=== PATIENT | male | born 1945 | race Caucasian/White ===

== ENCOUNTER 2016-04-28 07:22 | Day surgery (SDC) | payer MEDICARE ==
[2016-04-22 16:11] VITALS: BMI 30.2
[~2016-04-28 07:22] MED LIST: ALPRAZolam 0.25 MG TAB PO PRN; ASPIRIN 325 MG TAB PO STA; SODIUM CHLORIDE 0.9% 1,000 ML IV SCH; SODIUM CHLORIDE 0.9% 1,000 ML in EMPTY BAG 1 BAG IV ONE
[2016-04-28 08:13] LABS: Glucose,Whole Blood 148 mg/dL (75-99)
[2016-04-28 08:42] VITALS: RESP 16; TEMP 98
[2016-04-28] MEDS ORDERED: MIDAZOLAM 2 MG/2 ML VIAL IVP ONE (11:18)
[2016-04-28] MEDS ORDERED: LIDOCAINE 2% INJ 20 MG/ML SQ ONE (11:19)
[2016-04-28] MEDS: VERAPAMIL SYRINGE (5 MG/10 ML) INTRAARTER ONE ×2 (11:20→11:32)
[2016-04-28] MEDS ORDERED: HEPARIN SODIUM 1,000 UNIT/ML VIAL IV ONE (11:22)
[2016-04-28] MEDS ORDERED: IODIXANOL 320 MG/ML 100 ML INTRAARTER ONE (11:32)
[2016-04-28] MEDS ORDERED: SODIUM CHLORIDE 0.9% 1,000 ML IV SCH (11:45)
--- NOTE | 2016-04-28 12:34 | PCN ---
DATE OF PROCEDURE: 04/28/2016 PERIPHERAL ANGIOGRAM PERFORMING PHYSICIAN: Horacio Porter MD, motorized squad commanding officer. PROCEDURE PERFORMED: 1. Abdominal aortogram. 2. Bilateral lower extremity runoff. INDICATION: This is a pleasant 70-year-old gentleman who sees Dr. Hernan Alan as an outpatient and sees Dr. Guardado as an outpatient who was experiencing bilateral lower extremity discomfort consistent with claudication. He underwent an arterial duplex study in the office and showed severe bilateral SFA disease. He was admitted today to undergo an abdominal aortogram and bilateral lower extremity runoff. APPROACH: Right radial artery. COMPLICATIONS: None. LEVEL OF SEDATION: Moderate. PROCEDURE DESCRIPTION: After obtaining an informed consent, the patient was brought to the cardiac crime laboratory analyst. Right radial artery was cannulated using micropuncture technique. Micropuncture wire passed easily. Then I placed 5-[place] sheath in the right radial artery. Subsequently, I gave the patient 2 mg of verapamil IA and 3000 units of heparin IV. Subsequently, I did an abdominal aortogram and bilateral lower extremity runoff using a 5-[place] pigtail catheter which was initially placed at the level of the renal arteries then it was advanced into above the bifurcation of the aorta to right and left common iliac arteries. The procedure was completed without any complication. ( ) ANGIOGRAM 1. The abdominal aorta appeared to have mild disease only. 2. COMMON ILIAC ARTERIES: The right common iliac artery appeared to have mild disease only and the left common iliac artery appeared to be angiographically normal. 3. INTERNAL ILIAC ARTERIES: The right and left internal iliac arteries are angiographically normal. 4. EXTERNAL ILIAC ARTERIES: The right and left external iliac arteries appear to have mild disease only. 5. PROFUNDA: The right and left profunda are angiographically normal. 6. SFA: The right SFA is diffusely diseased up to about 70% to 80% in the midportion. The left SFA has the same disease also diffuse disease up to about 70% to 80% in the midportion. 7. POPLITEAL: The right and left popliteal appeared to have mild disease only. 8. BELOW THE KNEE: There is 2-vessel runoff below the knee on the right side with posterior tibia and peroneal and one-vessel runoff below the knee on the left side with posterior tibial only. CONCLUSION: 1. Mild aortoiliac disease. 2. Severe bilateral superficial femoral artery disease. 3. Two-vessel runoff below the knee on the right side and one vessel runoff below the knee on the left side. POSTPROCEDURE MANAGEMENT: The patient will be scheduled to undergo a SEXUAL ASSAULT SOCIAL WORKER of the right and left SFA.
--- NOTE | 2016-04-28 12:41 | IR ---
EXAMINATION TYPE: IR angio abdominal w runoff DATE OF EXAM: 04/28/2016 11:45 AM HISTORY: Peripheral vascular disease Fluoroscopy support supplied to the referring clinician. See dictated report from cardiology, 1.6 mi nutadalberto fluoroscopy time, 71 intraoperative C-arm images
[2016-04-28 16:49] VITALS: BP 136/72; PULSE 60
== END 2016-04-28 17:20 | disposition home or self-care (01) ==
LOC: CATHCVL 07:22
PROVIDERS: ATTEND Internal Medicine Interventional Cardiology
DX: I70.213 Atherosclerosis of native arteries of extremities with intermittent claudication, bilateral legs (principal); I25.10 Atherosclerotic heart disease of native coronary artery without angina pectoris; E11.9 Type 2 diabetes mellitus without complications; I10 Essential (primary) hypertension; E78.2 Mixed hyperlipidemia; Z82.49 Family history of ischemic heart disease and other diseases of the circulatory system; Z79.84 Long term (current) use of oral hypoglycemic drugs; Z79.02 Long term (current) use of antithrombotics/antiplatelets; Z79.4 Long term (current) use of insulin; Z79.899 Other long term (current) drug therapy; Z88.8 Allergy status to other drugs, medicaments and biological substances; Z86.73 Personal history of transient ischemic attack (TIA), and cerebral infarction without residual deficits; Z95.5 Presence of coronary angioplasty implant and graft; Z82.3 Family history of stroke; Z87.891 Personal history of nicotine dependence
CPT/HCPCS: 36200; 75625; 75716; C1769 ×2; C1894; J2001; J2250; Q9967; J1644

== ENCOUNTER 2016-06-09 09:28 | Day surgery (SDC) | payer MEDICARE ==
[2016-06-07 11:38] VITALS: BMI 30.7
[~2016-06-09 09:28] MED LIST changes: -SODIUM CHLORIDE 0.9% 1,000 ML IV SCH
[2016-06-09] MEDS ORDERED: SODIUM CHLORIDE 0.9% 1,000 ML IV ONE (10:00)
[2016-06-09 10:03] LABS: Glucose,Whole Blood 140 mg/dL (75-99)
[2016-06-09 10:08] LABS: Basophils % (A) 0 %; CH 30.2; CHCM 34.2; Eosinophils # (A) 0.2 k/uL (0-0.7); Eosinophils % (A) 3 %; HCT 33.2 % (39.0-53.0); HDW 2.86; HGB 11.1 gm/dL (13.0-17.5); Luc # (Auto) 0.17; Luc % (Auto) 3; Lymphocytes # (A) 1.2 k/uL (1.0-4.8); Lymphocytes % (A) 20 %; MCH 29.7 pg (25.0-35.0); MCHC 33.5 g/dL (31.0-37.0); MCV 88.6 fL (80.0-100.0); Mean Platelet Volume 7.2; Monocytes # (A) 0.5 k/uL (0-1.0); Monocytes % (A) 9 %; Neutrophils # (A) 3.8 k/uL (1.3-7.7); Neutrophils % (A) 65 %; RBC 3.75 m/uL (4.30-5.90); RDW 12.7 % (11.5-15.5); WBC 5.8 k/uL (3.8-10.6); WBC (Perox) 5.95
[2016-06-09 10:21] LABS: Anion Gap 13 mmol/L; Blood Urea Nitrogen 29 mg/dL (9-20); Calcium 8.7 mg/dL (8.4-10.2); Carbon Dioxide 22 mmol/L (22-30); Chloride 108 mmol/L (98-107); Glucose 147 mg/dL (74-99); Non-African American GFR(MDRD) 52 (>60 ml/min/1.73 sqM); Potassium 4.7 mmol/L (3.5-5.1); Sodium 143 mmol/L (137-145)
[2016-06-09] MEDS ORDERED: LIDOCAINE 2% INJ 20 MG/ML SQ ONE (10:28)
[2016-06-09] MEDS ORDERED: MIDAZOLAM 2 MG/2 ML VIAL IV ONE (10:28)
[2016-06-09] MEDS ORDERED: HEPARIN SODIUM 1,000 UNIT/ML VIAL IV ONE ×2 (10:35→11:25)
[2016-06-09] MEDS: NITROGLYCERIN 1000MCG/10ML SYRINGE INTRAARTER ONE ×4 (11:02→12:34)
[2016-06-09] MEDS: niCARdipine Syringe (1,000 mcg/10 mL) INTRACORON ONE ×3 (11:18→12:36)
[2016-06-09] MEDS: MIDAZOLAM 2 MG/2 ML VIAL IV ONE ×2 (11:31→11:46)
[2016-06-09] MEDS ORDERED: CLOPIDOGREL 75 MG TAB PO ONE (12:45)
[2016-06-09] MEDS ORDERED: MECLIZINE 12.5 MG TAB PO PRN (12:48)
[2016-06-09] MEDS ORDERED: HYDROcodone/APAP 5-325MG 1 EACH TAB PO PRN (12:48)
[2016-06-09] MEDS ORDERED: SODIUM CHLORIDE 0.9% 1,000 ML IV SCH (13:00)
[2016-06-09] MEDS: hydrALAZINE HCL 50 MG TAB PO SCH ×2 (14:27→21:30)
[2016-06-09] MEDS ORDERED: ENALAPRILAT 1.25 MG/ML 1 ML VIAL ONE (15:24)
[2016-06-09] MEDS ORDERED: hydrALAZINE HCL 20 MG/ML 1 ML VIAL ONE (15:24)
[2016-06-09] MEDS ORDERED: hydrALAZINE HCL 20 MG/ML 1 ML VIAL IVP PRN (15:27)
[2016-06-09] MEDS ORDERED: ENALAPRILAT 1.25 MG/ML 1 ML VIAL IVP PRN (15:27)
[2016-06-09] MEDS ORDERED: ATORVASTATIN 10 MG TAB PO SCH (19:00)
[2016-06-09] MEDS: CARVEDILOL 12.5 MG TAB PO SCH (20:13)
[2016-06-09] MEDS: CHOLECALCIFEROL 1,000 UNIT TAB PO SCH (20:13)
[2016-06-09] MEDS: amLODIPine 5 MG TAB PO SCH (20:13)
[2016-06-09] MEDS ORDERED: PANTOPRAZOLE 40 MG TABLET PO SCH (21:00)
--- NOTE | 2016-06-09 23:51 | PTCA ---
DATE OF SERVICE: 06/09/2016 PERFORMING PHYSICIAN: Horacio Porter M.D., weight tester. PROCEDURES PERFORMED: 1. Selective right superficial femoral artery angiogram. 2. Selective right [id number] angiogram. 3. Successful stenting of the distal right superficial femoral artery using a 6.0 x 80 mm Supera self-expandable stent with good angiographic results. 4. Successful stenting of the proximal right superficial femoral artery using a 7.0 x 120 mm silver PTX with good angiographic results. 5. Successful stenting of the mid right superficial femoral artery using successful balloon angioplasty of the mid right SFA using a 6.0 x 120 mm In.Pact drug-coated balloon with good angiographic results. 6. Selective left common femoral artery angiogram. 7. Atherectomy of the right SFA using the CXI device. INDICATION: This is a pleasant 71-year-old gentleman who sees Dr. Guardado and Dr. Hernan Alan as an outpatient who was experiencing bilateral lower extremity discomfort consistent with claudication. The patient underwent a peripheral angiogram a few weeks ago, and that showed severe bilateral SFA disease. He was brought today to undergo an intervention on the right SFA. APPROACH: Left common femoral artery. COMPLICATIONS: None. LEVEL OF SEDATION: Moderate. PROCEDURE DESCRIPTION: After obtaining informed consent, the patient was brought to the cardiac lab engineer. The left common femoral artery was cannulated using micropuncture technique. The micropuncture wire passed easily. Then I placed a 6 Afghan sheath in the left common femoral artery. Subsequently anticoagulation was initiated using heparin. The patient was given 10,000 units of heparin initially. Then an additional 3000 units of heparin was given with continuous ACT measurements during the procedure. After that I selected the right SFA using a 5 Afghan RIM catheter with an 0.035 Advantage wire. Subsequently I exchanged my 11cm 6 Afghan sheath for a 70 cm 6 Afghan sheath using the Advantage wire. After that I did selective right SFA and selective right [id number]-qwdg angiogram. After that I did an atherectomy of the right SFA using the CXI device. I did multiple runs of atherectomy under low, medium and high speed. Subsequently I did balloon angioplasty using a 5.0 mm balloon. The following angiogram showed dissection which was flow-limiting, so I decided to stent that segment, which is the distal right SFA. I did deploy a 6.0 x 80 mm Supera self-expandable stent, where the stent was positioned under fluoroscopy guidance, then it was deployed. For the area in the proximal right SFA, I did balloon angioplasty using a 5.0 mm balloon, but the following angiogram showed another dissection as well. So I decided to stent that segment, where I deployed a 7.0 x 120 mm Zilver PTX drug-coated stent which was positioned under fluoroscopy guidance, then it was deployed. For the area in the middle, I did balloon angioplasty initially using a 6.0 x 120 mm drug-coated balloon, where the balloon was left inflated for 3 minutes under 10 atmospheres. The following angiogram showed reasonable angiographic results. The following angiogram showed good angiographic results. Subsequently I exchanged my 70 cm sheath for an 11 cm sheath using the Advantage wire. The procedure was completed without any complication. Post-procedure management will be: 1. Dual antiplatelet therapy. 2. Risk factor modifications. 3. Surveillance of the mid right SFA and stenting of the mid right SFA if the Doppler shows severe disease.
--- NOTE | 2016-06-10 05:38 | LTR ---
June 09, 2016 LYNN ALCOCER MD RE: Og Martines Cori Dear Lynn: Mr. Og Martines underwent successful balloon angioplasty and stenting of the right femoral artery with a good angiographic result and without any complication. As you remember, he is a pleasant 71-year-old gentleman who was experiencing right leg discomfort consistent with claudication. Thank you for allowing me to participate in his care. Sincerely, KENNEDY LANDA MD
[2016-06-10 06:09] VITALS: PULSE 72
[2016-06-10] MEDS: CARVEDILOL 12.5 MG TAB PO SCH (06:53)
[2016-06-10 07:08] LABS: Basophils % (A) 0 %; CH 29.8; CHCM 33.4; Eosinophils # (A) 0.2 k/uL (0-0.7); Eosinophils % (A) 2 %; HCT 33.1 % (39.0-53.0); HDW 2.83; HGB 10.9 gm/dL (13.0-17.5); Luc # (Auto) 0.16; Luc % (Auto) 2; Lymphocytes % (A) 15 %; MCH 29.6 pg (25.0-35.0); MCV 89.6 fL (80.0-100.0); Mean Platelet Volume 7.4; Monocytes # (A) 0.5 k/uL (0-1.0); Monocytes % (A) 8 %; Neutrophils # (A) 4.7 k/uL (1.3-7.7); Neutrophils % (A) 72 %; RBC 3.69 m/uL (4.30-5.90); RDW 12.6 % (11.5-15.5); WBC 6.5 k/uL (3.8-10.6); WBC (Perox) 7.04
[2016-06-10 07:30] LABS: Anion Gap 11 mmol/L; Blood Urea Nitrogen 19 mg/dL (9-20); Calcium 8.6 mg/dL (8.4-10.2); Carbon Dioxide 23 mmol/L (22-30); Chloride 110 mmol/L (98-107); Glucose 133 mg/dL (74-99); Non-African American GFR(MDRD) 53 (>60 ml/min/1.73 sqM); Potassium 4.6 mmol/L (3.5-5.1); Sodium 144 mmol/L (137-145)
[2016-06-10] MEDS ORDERED: glipiZIDE 10 MG TAB PO SCH (07:30)
[2016-06-10] MEDS: amLODIPine 5 MG TAB PO SCH (07:39)
[2016-06-10] MEDS: CHOLECALCIFEROL 1,000 UNIT TAB PO SCH (07:39)
[2016-06-10] MEDS: hydrALAZINE HCL 50 MG TAB PO SCH (07:39)
[2016-06-10 07:45] VITALS: BP 143/66; RESP 16; TEMP 96.8
[2016-06-10] MEDS ORDERED: SERTRALINE 100 MG TAB PO SCH (09:00)
[2016-06-10] MEDS ORDERED: ISOSORBIDE MONONITRATE ER 30 MG TAB.ER.24H PO SCH (09:00)
[2016-06-10] MEDS ORDERED: LINAGLIPTIN 5 MG TABLET PO SCH (09:00)
[2016-06-10] MEDS ORDERED: ASPIRIN 325 MG TAB PO SCH (09:00)
[2016-06-10] MEDS ORDERED: CLOPIDOGREL 75 MG TAB PO SCH (09:00)
--- NOTE | 2016-06-10 09:42 | IR ---
Fluoroscopy HISTORY: Pain 7.7 minutes fluoroscopy time supplied to the referring clinician. 965 intraoperative C-arm images d ocument the procedure. See dictated report from cardiology.
--- NOTE | 2016-06-11 08:10 | DS ---
DATE OF ADMISSION: 06/09/2016 DATE OF DISCHARGE: 06/10/2016 BRIEF HISTORY: This is a pleasant 71-year-old gentleman who was admitted to the hospital yesterday and underwent successful balloon angioplasty and stenting of the right SFA with a good angiographic result and without any complication. The procedure was performed from the left groin, which is soft and nontender and without any bruises. The patient is going to be discharged home on dual antiplatelet therapy and I will follow up with him in the office next week.
== END 2016-06-10 09:55 | disposition home or self-care (01) ==
LOC: CATHCVL 09:28 → 6SEL 12:40 → CATHCVL 06-10 09:55
PROVIDERS: ATTEND Internal Medicine Interventional Cardiology
DX: I70.211 Atherosclerosis of native arteries of extremities with intermittent claudication, right leg (principal); I10 Essential (primary) hypertension; E78.2 Mixed hyperlipidemia; Z86.73 Personal history of transient ischemic attack (TIA), and cerebral infarction without residual deficits; Z82.49 Family history of ischemic heart disease and other diseases of the circulatory system; Z98.62 Peripheral vascular angioplasty status; Z87.891 Personal history of nicotine dependence; E11.9 Type 2 diabetes mellitus without complications; Z79.4 Long term (current) use of insulin; Z79.84 Long term (current) use of oral hypoglycemic drugs; Z79.02 Long term (current) use of antithrombotics/antiplatelets; Z79.82 Long term (current) use of aspirin; Z79.899 Other long term (current) drug therapy; Z88.8 Allergy status to other drugs, medicaments and biological substances
CPT/HCPCS: 37227; 85347; 80048 ×2; 85025 ×2; 99152; 99153 ×8; C1894 ×2; C1714; C1769 ×6; C1725 ×2; C2623 ×2; C1876; C1874; J2001; J2250; J0360; J1644

== ENCOUNTER 2016-08-11 09:56 | Day surgery (SDC) | payer MEDICARE ==
[2016-08-09 14:44] VITALS: BMI 30.7
[2016-08-11 10:19] VITALS: RESP 18
[2016-08-11 10:21] LABS: Glucose,Whole Blood 126 mg/dL (75-99)
[2016-08-11 10:40] LABS: Basophils % (A) 1 %; CH 29.5; Eosinophils # (A) 0.2 k/uL (0-0.7); Eosinophils % (A) 3 %; HCT 34.8 % (39.0-53.0); HDW 2.75; HGB 11.5 gm/dL (13.0-17.5); Luc # (Auto) 0.15; Luc % (Auto) 2; Lymphocytes # (A) 1.1 k/uL (1.0-4.8); Lymphocytes % (A) 15 %; MCH 28.9 pg (25.0-35.0); MCHC 33.1 g/dL (31.0-37.0); MCV 87.1 fL (80.0-100.0); Mean Platelet Volume 7.4; Monocytes # (A) 0.6 k/uL (0-1.0); Monocytes % (A) 8 %; Neutrophils # (A) 5.1 k/uL (1.3-7.7); Neutrophils % (A) 71 %; WBC 7.1 k/uL (3.8-10.6); WBC (Perox) 7.01
[2016-08-11 10:53] LABS: Anion Gap 11 mmol/L; Blood Urea Nitrogen 24 mg/dL (9-20); Calcium 8.9 mg/dL (8.4-10.2); Carbon Dioxide 25 mmol/L (22-30); Chloride 105 mmol/L (98-107); Glucose 134 mg/dL (74-99); Non-African American GFR(MDRD) 54 (>60 ml/min/1.73 sqM); Potassium 4.2 mmol/L (3.5-5.1); Sodium 141 mmol/L (137-145)
[2016-08-11] MEDS ORDERED: MIDAZOLAM 2 MG/2 ML VIAL IVP ONE (12:05)
[2016-08-11] MEDS ORDERED: LIDOCAINE 2% INJ 20 MG/ML SQ ONE (12:09)
[2016-08-11] MEDS ORDERED: HEPARIN SODIUM 1,000 UNIT/ML VIAL IV ONE ×2 (12:14→13:29)
[2016-08-11] MEDS ORDERED: MIDAZOLAM 2 MG/2 ML VIAL IV ONE (13:12)
[2016-08-11] MEDS ORDERED: NITROGLYCERIN 1000MCG/10ML SYRINGE INTRAARTER ONE (14:08)
[2016-08-11] MEDS ORDERED: niCARdipine Syringe (1,000 mcg/10 mL) INTRACORON ONE (14:08)
[2016-08-11] MEDS ORDERED: MECLIZINE 25 MG TAB PO PRN (14:27)
[2016-08-11] MEDS ORDERED: SODIUM CHLORIDE 0.9% 1,000 ML IV SCH (14:30)
[2016-08-11] MEDS ORDERED: IODIXANOL 320 MG/ML 100 ML INTRAARTER ONE (14:33)
--- NOTE | 2016-08-11 20:07 | PCN ---
DATE OF PROCEDURE: 08/11/2016 PERFORMING PHYSICIAN: Horacio Porter M.D., ship washer. PROCEDURES PERFORMED: 1. Selective left [id number] angiogram. 2. Selective left superficial femoral artery SFA angiogram. 3. Atherectomy of the left superficial femoral artery using the TurboHawk device with extraction of significant amount of plaque. 4. Successful stenting of the left superficial femoral artery using 6.0 x 40 mm Zilver PTX drug-coated stent, with good angiographic results. 5. Intravascular ultrasound (IVUS) of the left SFA. 6. Selective right common femoral artery angiogram. INDICATION: This is a pleasant 71-year-old gentleman who sees Dr. Hernan Alan as well as Dr. Guardado as an outpatient. He was experiencing bilateral lower extremity discomfort consistent with intermittent claudication. He underwent a peripheral angiogram that showed severe bilateral SFA disease. He underwent successful atherectomy and stenting of the right SFA and he was brought today to undergo an atherectomy of the left SFA. APPROACH: Right common femoral artery. COMPLICATIONS: None. LEVEL OF SEDATION: Moderate with a sedation length of about 2 hours. PROCEDURE DESCRIPTION: After obtaining informed consent, the patient was brought to the cardiac labor utilization superintendent. The right common femoral artery was cannulated using micropuncture technique. The micropuncture wire passed easily. Then I placed a 6 [place]i sheath in the right common femoral artery. Anticoagulation was initiated using heparin; the patient was given 10,000 units of heparin IV. Subsequently I did select the left SFA using an 0.035 Advantage wire with support of RIM catheter. Subsequently I exchanged my 11 cm 6 Yemeni sheath for a 55 cm 6 Yemeni sheath using the Advantage wire. The tip of the long sheath was positioned in the proximal left SFA. After that I exchanged my 0.035 Advantage wire for a filter wire using an 0.035 CXI catheter. The filter was positioned in the left popliteal. Subsequently I did atherectomy of the left SFA using the TurboHawk device, and I was able to extract a significant amount of plaque from the left SFA. After that, I did stenting of the left SFA using a 6.0 x 40 mm Zilver PTX drug-coated stent, where the stent was positioned under fluoroscopy guidance and deployed. The following angiogram showed good angiographic results in the stented area, but distal to the stent in the very distal part of the SFA just before the Ismael canal, there was some flow outside the artery. Possible dissection was suspected. I did intravascular ultrasound of that area and it showed what seemed to be dissection involving the distal SFA just distal to the stent I deployed. At that point I decided to go ahead and stent that segment. I tried to advance a self-expandable stent over the filter wire, but the stent would not go through the previous stent. At that point I exchanged it for an 0.018 wire, and the stent again did not pass through the previous stent. I exchanged this for an 0.035 Advantage, 0.035 Glidewire and 0.035 Amplatzer wire, and with all of that I was unable to deliver the stent to the distal left SFA through the previous stent. At that point I did balloon angioplasty of the previous stent using initially 5.0 and then 6.0 balloon and tried to open that stent a little better so I could pass the second stent across it, but I was unable to do so in spite of that. At that point I decided to stop. I did an angiogram which showed good angiographic results. After that, I exchanged my 55 cm 6 Yemeni sheath for an 11 cm 6 Yemeni sheath using the Advantage wire. Finally I did selective right common femoral artery angiogram. The procedure was completed without any complication. POST-PROCEDURE MANAGEMENT: 1. Dual antiplatelet therapy. 2. Risk factor modifications. 3. Followup with the patient. The patient has a lesion in the proximal left SFA. I would watch him clinically and by Doppler; and if he is symptomatic, I would consider doing a SIGHTER of that segment.
--- NOTE | 2016-08-11 20:15 | LTR ---
August 11, 2016 RE: Og Martines Dear Veronica, Mr. Og Martines underwent successful atherectomy and balloon angioplasty of the left femoral artery with good angiographic results and without any complication. Please do not hesitate to call if you have any question or concern. Sincerely, KENNEDY LANDA MD
[2016-08-11] MEDS ORDERED: ATORVASTATIN 40 MG TAB PO SCH (21:00)
[2016-08-11] MEDS ORDERED: PANTOPRAZOLE 40 MG TABLET PO SCH (21:00)
[2016-08-11] MEDS ORDERED: ASPIRIN 325 MG TAB PO SCH (21:00)
[2016-08-11] MEDS: hydrALAZINE HCL 50 MG TAB PO SCH ×2 (21:23→21:25)
[2016-08-11] MEDS: glipiZIDE 10 MG TAB PO SCH ×2 (21:23→21:25)
[2016-08-11] MEDS: amLODIPine 5 MG TAB PO SCH (21:23)
[2016-08-11] MEDS: CARVEDILOL 12.5 MG TAB PO SCH (21:23)
[2016-08-11 21:40] LABS: Glucose,Whole Blood 161 mg/dL (75-99)
[2016-08-11] MEDS ORDERED: INSULIN GLARGINE 100 UNIT/ML 10 ML VIAL SQ SCH (22:30)
[2016-08-12 06:27] LABS: Glucose,Whole Blood 91 mg/dL (75-99)
[2016-08-12 06:32] LABS: Non-African American GFR(MDRD) 55 (>60 ml/min/1.73 sqM)
[2016-08-12] MEDS: CARVEDILOL 12.5 MG TAB PO SCH (06:44)
[2016-08-12 07:10] LABS: Basophils # (A) 0.1 k/uL (0-0.2); Basophils % (A) 1 %; CH 29.3; CHCM 33.4; Eosinophils # (A) 0.2 k/uL (0-0.7); Eosinophils % (A) 3 %; HCT 33.9 % (39.0-53.0); HDW 2.71; Luc # (Auto) 0.16; Luc % (Auto) 3; Lymphocytes # (A) 1.2 k/uL (1.0-4.8); Lymphocytes % (A) 23 %; MCH 28.7 pg (25.0-35.0); MCHC 32.6 g/dL (31.0-37.0); Mean Platelet Volume 7.1; Monocytes # (A) 0.4 k/uL (0-1.0); Monocytes % (A) 9 %; Neutrophils # (A) 3.1 k/uL (1.3-7.7); Neutrophils % (A) 61 %; RBC 3.85 m/uL (4.30-5.90); RDW 13.2 % (11.5-15.5); WBC 5.1 k/uL (3.8-10.6); WBC (Perox) 5.24
[2016-08-12] MEDS ORDERED: ISOSORBIDE MONONITRATE ER 30 MG TAB.ER.24H PO SCH (09:00)
[2016-08-12] MEDS ORDERED: CLOPIDOGREL 75 MG TAB PO SCH (09:00)
[2016-08-12] MEDS ORDERED: SERTRALINE 100 MG TAB PO SCH (09:00)
[2016-08-12] MEDS ORDERED: LINAGLIPTIN 5 MG TABLET PO SCH (09:00)
[2016-08-12] MEDS: glipiZIDE 10 MG TAB PO SCH (09:23)
[2016-08-12] MEDS: amLODIPine 5 MG TAB PO SCH (09:24)
[2016-08-12] MEDS: hydrALAZINE HCL 50 MG TAB PO SCH (09:24)
--- NOTE | 2016-08-12 10:17 | IR ---
EXAMINATION TYPE: IR stent intravas non coronary DATE OF EXAM: 08/11/2016 2:43 PM COMPARISON: NONE HISTORY: Peripheral vascular occlusive disease. Fluoroscopy was provided to the referring clinician. See dictated report from cardiology. 40.5 xavier lala fluoroscopy time.
[2016-08-12 11:05] LABS: Anion Gap 9 mmol/L; Blood Urea Nitrogen 18 mg/dL (9-20); Calcium 8.8 mg/dL (8.4-10.2); Carbon Dioxide 25 mmol/L (22-30); Chloride 109 mmol/L (98-107); Glucose 98 mg/dL (74-99); Potassium 3.9 mmol/L (3.5-5.1); Sodium 143 mmol/L (137-145)
[2016-08-12 11:12] VITALS: BP 154/67; PULSE 60; TEMP 98.2
[2016-08-12] MEDS ORDERED: CHOLECALCIFEROL 1,000 UNIT TAB PO SCH (12:00)
--- NOTE | 2016-08-14 08:55 | DS ---
DATE OF ADMISSION: 08/11/2016 DATE OF DISCHARGE: 08/12/2016 BRIEF HISTORY: This is a very pleasant 71-year-old gentleman who sees Dr. Alan and Dr. Guardado as an outpatient who was experiencing bilateral lower extremity discomfort consistent with intermittent claudication and he underwent a peripheral angiogram which showed bilateral SFA disease. The patient underwent atherectomy and stenting of the right SFA and he was brought this time where he underwent an atherectomy and stenting of the left SFA with a good angiographic results. The procedure was performed from the right groin, which was soft and nontender and without any bruises. The patient is going to be discharged home on dual antiplatelet therapy and I will follow up with the patient as an outpatient in the office.
== END 2016-08-12 11:54 | disposition home or self-care (01) ==
LOC: CATHCVL 09:56 → 6SEL 14:22 → CATHCVL 08-12 11:54
PROVIDERS: ATTEND Internal Medicine Interventional Cardiology
DX: I70.212 Atherosclerosis of native arteries of extremities with intermittent claudication, left leg (principal); E11.9 Type 2 diabetes mellitus without complications; I10 Essential (primary) hypertension; E78.2 Mixed hyperlipidemia; I25.10 Atherosclerotic heart disease of native coronary artery without angina pectoris; Z79.84 Long term (current) use of oral hypoglycemic drugs; Z79.02 Long term (current) use of antithrombotics/antiplatelets; Z79.82 Long term (current) use of aspirin; Z79.4 Long term (current) use of insulin; Z79.899 Other long term (current) drug therapy; Z86.73 Personal history of transient ischemic attack (TIA), and cerebral infarction without residual deficits; Z95.5 Presence of coronary angioplasty implant and graft; Z82.49 Family history of ischemic heart disease and other diseases of the circulatory system; Z82.3 Family history of stroke
CPT/HCPCS: 37227; 37252; 80048 ×2; 85025 ×2; 99152; 99153 ×7; C1769 ×8; C1894 ×2; C1876 ×2; C1725 ×2; C1714; C1753; C1884; C1874; J2001; J2250; Q9967; J1644

== ENCOUNTER → 2017-07-01 | Outpatient (CLI) | payer MEDICARE ==
--- NOTE | 2017-07-01 13:31 | US ---
EXAMINATION TYPE: US kidneys/renal and bladder DATE OF EXAM: 07/01/2017 COMPARISON: NONE CLINICAL HISTORY: R79.89 Elevated Creatinine. Abnormal labs, pt states no known renal issues EXAM MEASUREMENTS: Right Kidney: 12.3 x 5.6 x 5.4 cm Left Kidney: 11.5 x 5.3 x 5.3 cm Right Kidney: Appeared wnl Left Kidney: Appeared wnl Bladder: wnl Bilateral Jets seen: Only right jet visualized There is no evidence for hydronephrosis at this point in time. No nephrolithiasis is seen. No jaylene s are identified. The urinary bladder is anechoic. Bilateral ureteral jets are seen. IMPRESSION: Unremarkable study.
== END | disposition home or self-care (01) ==
LOC: RADUSWWP 12:37
PROVIDERS: ATTEND Internal Medicine
DX: R79.89 Other specified abnormal findings of blood chemistry (principal)
CPT/HCPCS: 76770

== ENCOUNTER 2018-07-06 22:04 | Emergency (ER) | payer MEDICARE ==
[2018-07-06 22:09] VITALS: TEMP 99
[2018-07-06] MEDS ORDERED: IPRATROPIUM-ALBUTEROL 3 ML NEB INHALATION STA ×2 (22:36→23:58)
[2018-07-06] MEDS ORDERED: SODIUM CHLORIDE 0.9% 1,000 ML IV STA (22:36)
[2018-07-06 23:09] LABS: Basophils % (A) 1 %; Eosinophils # (A) 0.2 k/uL (0-0.7); Eosinophils % (A) 5 %; HCT 37.1 % (39.0-53.0); Lymphocytes # (A) 1.2 k/uL (1.0-4.8); Lymphocytes % (A) 24 %; MCH 29.3 pg (25.0-35.0); MCHC 32.3 g/dL (31.0-37.0); MCV 90.6 fL (80.0-100.0); Mean Platelet Volume 8.1; Monocytes # (A) 0.4 k/uL (0-1.0); Monocytes % (A) 7 %; Neutrophils # (A) 3.1 k/uL (1.3-7.7); Neutrophils % (A) 60 %; Platelet Count 209 k/uL (150-450); RBC 4.09 m/uL (4.30-5.90); RDW 12.6 % (11.5-15.5); WBC 5.1 k/uL (3.8-10.6)
--- NOTE | 2018-07-06 23:13 | ED ---
SOB HPI - General Chief Complaint: Shortness of Breath Stated Complaint: SOB Time Seen by Provider: 07/06/18 22:13 Source: patient, family, RN notes reviewed Mode of arrival: ambulatory Limitations: no limitations - History of Present Illness Initial Comments: This is a 73-year-old male who presents with complaints of shortness of breath cough fevers chills and sweats. He states he's been rattly and it feels like he may have pneumonia. He currently states he thinks he has some mild asthma but is not on any type of updrafts. He denies any overt chest pain but he states she's feels like he is getting worse not better. Some rhinorrhea. No palpit ations no dizziness no other symptoms reported. No other modifying factors MD Complaint: shortness of breath, cough - Related Data Home Medications Medication Instructions Recorded Confirmed Isosorbide Mononitrate [Imdur] 30 mg PO DAILY 01/09/14 07/06/18 Sertraline [Zoloft] 100 mg PO DAILY 01/09/14 07/06/18 Aspirin EC [Ecotrin Low Dose] 81 mg PO DAILY 11/08/15 07/06/18 amLODIPine [Norvasc] 5 mg PO BID 11/08/15 07/06/18 Carvedilol [Coreg] 25 mg PO BID 03/30/16 07/06/18 Atorvastatin [Lipitor] 40 mg PO HS 08/09/16 07/06/18 Ergocalciferol [Vitamin D2] 50,000 unit PO SUWE 07/06/18 07/06/18 Ferrous Sulfate [Feosol] 325 mg PO DAILY 07/06/18 07/06/18 Furosemide [Lasix] 20 mg PO BID 07/06/18 07/06/18 Insulin Glargine [Lantus] 80 unit SQ HS 07/06/18 07/06/18 Insulin Lispro [humaLOG Kwikpen] See Protocol SQ AC-TID 07/06/18 07/06/18 hydrALAZINE HCL [Apresoline] 75 mg PO TID 07/06/18 07/06/18 Previous Rx's Medication Instructions Recorded Clopidogrel [Plavix] 75 mg PO DAILY tab 11/11/15 Ipratropium/Albuterol Sulfate 2 puff INHALATION QID #1 inhaler 07/07/18 [Combivent Respimat Inhaler] predniSONE 20 mg PO BID #10 tab 07/07/18 Allergies Allergy/AdvReac Type Severity Reaction Status Date / Time simvastatin AdvReac Diarrhea Verified 07/06/18 22:19 Review of Systems ROS Statement: Those systems with pertinent positive or pertinent negative responses have been documented in the HPI. ROS Other: All systems not noted in ROS Statement are negative. Past Medical History Past Medical History: Coronary Artery Disease (CAD), CVA/TIA, Diabetes Mellitus, GERD/Reflux, Hyperlipidemia, Hypertension Additional Past Medical History / Comment(s): labyrinthitis, 10/2015 - TIA no effects from, neuropathy and poor circulation [place] legs and feet, boot on left foot from injury 03/2016, states had high potassium 03/2016 History of Any Multi-Drug Resistant Organisms: None Reported Past Surgical History: Appendectomy, Heart Catheterization With Stent Additional Past Surgical History / Comment(s): LASER DIABETIC RETINOPATHY EYE SURGERY, one cardiac stent, aortogram, RIGHT FEM POP Past Anesthesia/Blood Transfusion Reactions: No Reported Reaction Additional Past Anesthesia/Blood Transfusion Reaction / Comment(s): . Date of Last Stent Placement:: 2001 Past Psychological History: Depression Smoking Status: Former smoker Past Alcohol Use History: None Reported Past Drug Use History: None Reported - Past Family History Father Family Medical History: Hypertension Additional Family Medical History / Comment(s): ALCOHOLIC, DID NOT KNOW DAD VERY WELL. Mother Family Medical History: Diabetes Mellitus Additional Family Medical History / Comment(s): Pt states mother had "heart trouble" General Exam - General Exam Comments Initial Comments: This a well-developed well-nourished awake alert oriented times 3 male Limitations: no limitations General appearance: alert, anxious Head exam: Present: atraumatic, normocephalic, normal inspection Eye exam: Present: normal appearance, PERRL, EOMI. Absent: scleral icterus, conjunctival injection, periorbital swelling ENT exam: Present: mucous membranes moist, other (Boggy swollen nasal mucosa) Neck exam: Present: normal inspection, full ROM, other (No stridor JVD or bruits). Absent: tenderness, meningismus, lymphadenopathy Respiratory exam: Present: wheezes, rhonchi (Abnormal sounds or sweats he heard in the right lower lobe), decreased breath sounds. Absent: respiratory distress, rales, stridor Cardiovascular Exam: Present: regular rate, normal rhythm, normal heart sounds. Absent: systolic murmur, diastolic murmur, rubs, gallop, clicks GI/Abdominal exam: Present: soft, normal bowel sounds. Absent: distended, tenderness, guarding, rebound, rigid Extremities exam: Present: normal inspection, full ROM, normal capillary refill. Absent: tenderness, pedal edema, joint swelling, calf tenderness Back exam: Present: normal inspection Neurological exam: Present: alert, oriented X3, CN II-XII intact Psychiatric exam: Present: normal affect, normal mood Skin exam: Present: warm, dry, intact, normal color. Absent: rash Course Vital Signs 07/06/18 07/06/18 07/06/18 22:06 22:39 22:49 Temperature 99 F Pulse Rate 69 76 80 Respiratory 18 Rate Blood Pressure 191/74 O2 Sat by Pulse 96 Oximetry - Reevaluation(s) Reevaluation #1: 07/06/18 23:59 Patient is a known diabetic he states his blood sugar was actually somewhat over 400 before he came in stating he does have a sliding scale and he did give himself. Reevaluation #2: 07/07/18 00:13 Reevaluation patient reveals marked improvement in his breathing ability the lung sounds are much improved was just occasional scattered wheezes. Patient will get one more updraft treatment and some steroids. He will be discharged with an inhaler. This unclear when the influenza and she started initially the patient thought was with last couple days now after further questioning it seems it has been 5 days ago. Tamiflu therefore were did not be indicated though he is got 1 dose Medical Decision Making - Medical Decision Making Patient will be discharged after the IV steroids and repeat updraft. Patient will be following up with his doctor return when necessary inhaler will be ordered as well as a short course of oral steroids - Lab Data Result diagrams: 07/06/18 22:52 07/06/18 22:52 Lab Results 07/06/18 07/06/18 07/06/18 Range/Units 22:52 22:52 22:52 WBC 5.1 (3.8-10.6) k/uL RBC 4.09 L (4.30-5.90) m/uL Hgb 12.0 L (13.0-17.5) gm/dL Hct 37.1 L (39.0-53.0) % MCV 90.6 (80.0-100.0) fL MCH 29.3 (25.0-35.0) pg MCHC 32.3 (31.0-37.0) g/dL RDW 12.6 (11.5-15.5) % Plt Count 209 (150-450) k/uL Neutrophils % 60 % Lymphocytes % 24 % Monocytes % 7 % Eosinophils % 5 % Basophils % 1 % Neutrophils # 3.1 (1.3-7.7) k/uL Lymphocytes # 1.2 (1.0-4.8) k/uL Monocytes # 0.4 (0-1.0) k/uL Eosinophils # 0.2 (0-0.7) k/uL Basophils # 0.0 (0-0.2) k/uL PT (9.0-12.0) sec INR (<1.2) APTT (22.0-30.0) sec Sodium 138 (137-145) mmol/L Potassium 4.9 (3.5-5.1) mmol/L Chloride 103 (98-107) mmol/L Carbon Dioxide 28 (22-30) mmol/L Anion Gap 7 mmol/L BUN 25 H (9-20) mg/dL Creatinine 1.85 H (0.66-1.25) mg/dL Est GFR (CKD-EPI)AfAm 42 (>60 ml/min/1.73 sqM) Est GFR (CKD-EPI)NonAf 36 (>60 ml/min/1.73 sqM) Glucose 338 H (74-99) mg/dL Calcium 8.2 L (8.4-10.2) mg/dL Magnesium 1.9 (1.6-2.3) mg/dL Total Bilirubin 0.4 (0.2-1.3) mg/dL AST 24 (17-59) U/L ALT 28 (21-72) U/L Alkaline Phosphatase 82 (38-126) U/L Troponin I (0.000-0.034) ng/mL NT-Pro-B Natriuret Pep pg/mL Total Protein 6.3 (6.3-8.2) g/dL Albumin 3.5 (3.5-5.0) g/dL Influenza Type A RNA Detected H (Not Detectd) Influenza Type B (PCR) Not Detected (Not Detectd) 07/06/18 07/06/18 07/06/18 Range/Units 22:52 22:52 22:52 WBC (3.8-10.6) k/uL RBC (4.30-5.90) m/uL Hgb (13.0-17.5) gm/dL Hct (39.0-53.0) % MCV (80.0-100.0) fL MCH (25.0-35.0) pg MCHC (31.0-37.0) g/dL RDW (11.5-15.5) % Plt Count (150-450) k/uL Neutrophils % % Lymphocytes % % Monocytes % % Eosinophils % % Basophils % % Neutrophils # (1.3-7.7) k/uL Lymphocytes # (1.0-4.8) k/uL Monocytes # (0-1.0) k/uL Eosinophils # (0-0.7) k/uL Basophils # (0-0.2) k/uL PT 9.4 (9.0-12.0) sec INR 0.8 (<1.2) APTT 24.0 (22.0-30.0) sec Sodium (137-145) mmol/L Potassium (3.5-5.1) mmol/L Chloride (98-107) mmol/L Carbon Dioxide (22-30) mmol/L Anion Gap mmol/L BUN (9-20) mg/dL Creatinine (0.66-1.25) mg/dL Est GFR (CKD-EPI)AfAm (>60 ml/min/1.73 sqM) Est GFR (CKD-EPI)NonAf (>60 ml/min/1.73 sqM) Glucose (74-99) mg/dL Calcium (8.4-10.2) mg/dL Magnesium (1.6-2.3) mg/dL Total Bilirubin (0.2-1.3) mg/dL AST (17-59) U/L ALT (21-72) U/L Alkaline Phosphatase (38-126) U/L Troponin I <0.012 (0.000-0.034) ng/mL NT-Pro-B Natriuret Pep 1080 pg/mL Total Protein (6.3-8.2) g/dL Albumin (3.5-5.0) g/dL Influenza Type A RNA (Not Detectd) Influenza Type B (PCR) (Not Detectd) - EKG Data -: EKG Interpreted by Me EKG shows normal: sinus rhythm (Sinus rhythm rate is 64. Interval 160 QRS duration 102 QT since QTC 44/[address]-T wave configuration prolonged QT) When compared to previous EKG there are: no significant change (Compared with an EKG dated ) - Radiology Data Radiology results: report reviewed (Imaging was reviewed no acute findings are seen.), image reviewed Disposition Clinical Impression: Influenza A, Acute bronchospasm, Hyperglycemia Disposition: HOME SELF-CARE Condition: Good Instructions (If sedation given, give patient instructions): Bronchospasm (ED), Influenza (ED), Diabetic Hyperglycemia (ED) Prescriptions: Ipratropium/Albuterol Sulfate [Combivent Respimat Inhaler] 2 puff INHALATION QID #1 inhaler predniSONE 20 mg PO BID #10 tab Is patient prescribed a controlled substance at d/c from ED?: No Referrals: Veronica Guardado MD [Primary Care Provider] - 1-2 days
[2018-07-06 23:18] LABS: INR 0.8 (<1.2); Prothrombin Time 9.4 sec (9.0-12.0)
[2018-07-06 23:19] LABS: Albumin 3.5 g/dL (3.5-5.0); Calcium 8.2 mg/dL (8.4-10.2); Magnesium 1.9 mg/dL (1.6-2.3); Potassium 4.9 mmol/L (3.5-5.1); Total Bilirubin 0.4 mg/dL (0.2-1.3); Total Protein 6.3 g/dL (6.3-8.2)
--- NOTE | 2018-07-06 23:31 | XR ---
EXAM: XR Chest, 2 Views CLINICAL HISTORY: difficulty breathing TECHNIQUE: Frontal and lateral views of the chest. COMPARISON: 03/30/2016 FINDINGS: Lungs: Unremarkable. No consolidation. Pleural space: Unremarkable. No pneumothorax. Heart: Unremarkable. No cardiomegaly. Mediastinum: Unremarkable. Bones/joints: No acute osseous abnormality. Tubes, lines and devices: Telemetry leads overlie the patient. IMPRESSION: No acute cardiopulmonary process.
[2018-07-06] MEDS ORDERED: OSELTAMIVIR 75 MG CAP PO STA (23:50)
[2018-07-06] MEDS ORDERED: methylPREDNISolone SOD SUCCI 125 MG/2 ML VIAL IV STA (23:58)
[2018-07-07 01:04] VITALS: BP 169/70; RESP 16
[2018-07-07 01:05] VITALS: PULSE 72
== END 2018-07-07 01:04 | disposition home or self-care (01) ==
LOC: EC 22:04
DX: J10.1 Influenza due to other identified influenza virus with other respiratory manifestations (principal); E11.65 Type 2 diabetes mellitus with hyperglycemia; J98.01 Acute bronchospasm; I45.81 Long QT syndrome; I25.10 Atherosclerotic heart disease of native coronary artery without angina pectoris; E78.5 Hyperlipidemia, unspecified; I10 Essential (primary) hypertension; E11.40 Type 2 diabetes mellitus with diabetic neuropathy, unspecified; F32.9 Major depressive disorder, single episode, unspecified; Z87.891 Personal history of nicotine dependence; Z88.8 Allergy status to other drugs, medicaments and biological substances; Z79.4 Long term (current) use of insulin; Z79.82 Long term (current) use of aspirin; Z79.899 Other long term (current) drug therapy; Z95.5 Presence of coronary angioplasty implant and graft; Z86.73 Personal history of transient ischemic attack (TIA), and cerebral infarction without residual deficits; Z98.890 Other specified postprocedural states; Z83.3 Family history of diabetes mellitus
CPT/HCPCS: 36415; 94640 ×2; 93005; 83880; 80053; 83735; 84484; 85025; 85610; 85730; 87040; 87502; 71046; 99285; 96374; 96361; J2930

== ENCOUNTER → 2021-01-07 | Outpatient (CLI) | payer MEDICARE ==
--- NOTE | 2021-01-07 16:36 | MR ---
EXAMINATION TYPE: MR lumbar spine wo con DATE OF EXAM: 01/07/2021 COMPARISON: None HISTORY: Low back pain into pelvis and [place]errat lower extremities TECHNIQUE: Multiplanar, multisequence images of the lumbar spine were acquired without IV contrast. L1-L2: Normal disc appearance without desiccation. No herniation, protrusion or disc bulging. No ca nal stenosis is present. Foramina are patent bilaterally. L2-L3: Normal disc appearance without desiccation. No herniation, protrusion or disc bulging. No ca nal stenosis is present. Foramina are patent bilaterally. L3-L4: Normal disc appearance without desiccation. No herniation, protrusion or disc bulging. No ca nal stenosis is present. Foramina are patent bilaterally. L4-L5: Posterior disc bulge causes anterior mass effect on the thecal sac. Facet arthropathy changes present causing posterior lateral mass effect on the thecal sac. There is circumference extension of disc material causing some foraminal encroachment inferiorly greater on the left than on the right. L5-S1: Facet arthropathy changes present. There is a posterior disc bulge present, contact with the p roximal S1 nerve root suspected on the right, facet arthropathy encroaches upon the lateral recesses. Circumferential extension endplate disc complex results in some foraminal encroachment greater on th e right than on the left Lumbar segments are intact. No paraspinal masses are identified. Conus medullaris has a normal appe arance. Lumbar vertebral bodies show preserved height and alignment, there is multilevel spondylosis. Endplate discogenic marrow signal changes are present, loss of disc height signal is greatest at L5- S1. There is no significant spinal stenosis. IMPRESSION: Degenerative disc disease and facet arthropathy.
== END | disposition home or self-care (01) ==
LOC: RADMRIMAIN 08:08
PROVIDERS: ATTEND Internal Medicine
DX: M51.36 Other intervertebral disc degeneration, lumbar region (principal); M47.816 Spondylosis without myelopathy or radiculopathy, lumbar region
CPT/HCPCS: 72148

== ENCOUNTER 2021-02-18 11:55 | Inpatient (IN) | payer MEDICARE ==
[2021-02-18] MEDS ORDERED: ASPIRIN 81 MG PO STA (12:31)
--- NOTE | 2021-02-18 12:34 | ED ---
General Adult HPI - General Chief complaint: Shortness of Breath Stated complaint: ANGELO Time Seen by Provider: 02/18/21 12:05 Source: patient, family, RN notes reviewed Mode of arrival: ambulatory Limitations: no limitations - History of Present Illness Initial comments: Patient is a pleasant 75-year-old male presenting to the emergency department with dyspnea. Onset of symptoms was yesterday. Symptoms are persistent. Symptoms are mild at rest but worse with exertion. No chest pain. Patient has had minimal cough. No fever. No leg pain or leg swelling. Patient does have history of previous cardiac problems however no history of similar symptoms to this. Patient does have history of renal insufficiency as well as previous cardiac disease and has had a stent. - Related Data Home Medications Medication Instructions Recorded Confirmed Isosorbide Mononitrate [Imdur] 30 mg PO BID 01/09/14 02/18/21 Sertraline [Zoloft] 100 mg PO DAILY 01/09/14 02/18/21 Aspirin EC [Ecotrin Low Dose] 81 mg PO DAILY 11/08/15 02/18/21 amLODIPine [Norvasc] 5 mg PO BID 11/08/15 02/18/21 Carvedilol [Coreg] 25 mg PO BID 03/30/16 02/18/21 Ergocalciferol [Vitamin D2] 50,000 unit PO SUWE 07/06/18 02/18/21 Insulin Glargine [Lantus Vial] 55 unit SQ HS 07/06/18 02/18/21 Insulin Lispro [humaLOG Kwikpen] See Protocol SQ AC-TID PRN 07/06/18 02/18/21 hydrALAZINE HCL [Apresoline] 100 mg PO DAILY 07/06/18 02/18/21 Atorvastatin [Lipitor] 40 mg PO HS 02/18/21 02/18/21 Furosemide [Lasix] 40 mg PO DAILY 02/18/21 02/18/21 calcitrioL [Calcitriol] 0.5 mcg PO DIRECTED 02/18/21 02/18/21 hydrALAZINE HCL [Apresoline] 75 mg PO HS 02/18/21 02/18/21 Previous Rx's Medication Instructions Recorded Clopidogrel [Plavix] 75 mg PO DAILY tab 11/11/15 Allergies Allergy/AdvReac Type Severity Reaction Status Date / Time simvastatin AdvReac Diarrhea Verified 02/18/21 13:27 Review of Systems ROS Statement: Those systems with pertinent positive or pertinent negative responses have been documented in the HPI. ROS Other: All systems not noted in ROS Statement are negative. Constitutional: Denies: fever, chills Eyes: Denies: eye pain ENT: Denies: ear pain Respiratory: Reports: as per HPI, dyspnea Cardiovascular: Denies: chest pain Endocrine: Reports: fatigue Gastrointestinal: Denies: abdominal pain Genitourinary: Denies: dysuria Musculoskeletal: Denies: back pain Skin: Denies: rash Neurological: Denies: weakness Past Medical History Past Medical History: Coronary Artery Disease (CAD), CVA/TIA, Diabetes Mellitus, GERD/Reflux, Hyperlipidemia, Hypertension Additional Past Medical History / Comment(s): labyrinthitis, 10/2015 - TIA no e ffects from, neuropathy and poor circulation [place]at legs and feet, boot on left foot from injury 03/2016, states had high potassium 03/2016 History of Any Multi-Drug Resistant Organisms: None Reported Past Surgical History: Appendectomy, Heart Catheterization With Stent Additional Past Surgical History / Comment(s): LASER DIABETIC RETINOPATHY EYE SURGERY, one cardiac stent, aortogram, RIGHT FEM POP Past Anesthesia/Blood Transfusion Reactions: No Reported Reaction Additional Past Anesthesia/Blood Transfusion Reaction / Comment(s): . Date of Last Stent Placement:: 2001 Past Psychological History: Depression Smoking Status: Never smoker Past Alcohol Use History: None Reported Past Drug Use History: None Reported - Past Family History Father Family Medical History: Hypertension Additional Family Medical History / Comment(s): ALCOHOLIC, DID NOT KNOW DAD VERY WELL. Mother Family Medical History: Diabetes Mellitus Additional Family Medical History / Comment(s): Pt states mother had "heart trouble" General Exam Limitations: no limitations General appearance: alert, in no apparent distress Head exam: Present: normocephalic Eye exam: Present: normal appearance Neck exam: Present: normal inspection Respiratory exam: Present: normal lung sounds bilaterally Cardiovascular Exam: Present: regular rate, normal rhythm, normal heart sounds GI/Abdominal exam: Present: soft. Absent: tenderness Extremities exam: Present: pedal edema (Trace bilateral). Absent: calf tende rness Neurological exam: Present: alert Psychiatric exam: Present: normal affect, normal mood Skin exam: Present: normal color Course Vital Signs 02/18/21 02/18/21 12:02 13:22 Temperature 97.3 F L Pulse Rate 65 66 Respiratory 18 16 Rate Blood Pressure 159/68 161/65 O2 Sat by Pulse 98 98 Oximetry EKG Findings - EKG Comments: EKG Findings:: Normal sinus rhythm with a rate of 70. GA 176. QRS 104. QT 422. QTC 455. Normal axis. Normal QRS. Inferior and lateral T wave inversion. Reviewed EKG from 09/05/2018. Medical Decision Making - Medical Decision Making Patient reevaluated. Patient and family updated. Case was discussed with Dr. Guardado, who will admit his patient with consult with nephrology and cardiology. - Lab Data Result diagrams: 02/18/21 12:30 02/18/21 12:30 Lab Results 02/18/21 02/18/21 02/18/21 Range/Units 12:30 12:30 12:30 WBC 6.8 (3.8-10.6) k/uL RBC 3.08 L (4.30-5.90) m/uL Hgb 9.8 L (13.0-17.5) gm/dL Hct 29.0 L (39.0-53.0) % MCV 94.0 (80.0-100.0) fL MCH 31.9 (25.0-35.0) pg MCHC 33.9 (31.0-37.0) g/dL RDW 12.5 (11.5-15.5) % Plt Count 202 (150-450) k/uL MPV 7.9 Neutrophils % 75 % Lymphocytes % 12 % Monocytes % 7 % Eosinophils % 3 % Basophils % 1 % Neutrophils # 5.1 (1.3-7.7) k/uL Lymphocytes # 0.8 L (1.0-4.8) k/uL Monocytes # 0.5 (0-1.0) k/uL Eosinophils # 0.2 (0-0.7) k/uL Basophils # 0.0 (0-0.2) k/uL PT 10.1 (9.0-12.0) sec INR 0.9 (<1.2) APTT 24.5 (22.0-30.0) sec D-Dimer 0.88 H (<0.60) mg/L FEU Sodium 138 (137-145) mmol/L Potassium 4.7 (3.5-5.1) mmol/L Chloride 109 H (98-107) mmol/L Carbon Dioxide 18 L (22-30) mmol/L Anion Gap 11 mmol/L BUN 59 H (9-20) mg/dL Creatinine 3.50 H (0.66-1.25) mg/dL Est GFR (CKD-EPI)AfAm 19 (>60 ml/min/1.73 sqM) Est GFR (CKD-EPI)NonAf 16 (>60 ml/min/1.73 sqM) Glucose 208 H (74-99) mg/dL Plasma Lactic Acid Clarence (0.7-2.0) mmol/L Calcium 9.1 (8.4-10.2) mg/dL Magnesium 2.0 (1.6-2.3) mg/dL Total Bilirubin 0.3 (0.2-1.3) mg/dL AST 20 (17-59) U/L ALT 15 (4-49) U/L Alkaline Phosphatase 54 (38-126) U/L NT-Pro-B Natriuret Pep pg/mL Total Protein 6.8 (6.3-8.2) g/dL Albumin 3.8 (3.5-5.0) g/dL Coronavirus (PCR) (Not Detectd) 02/18/21 02/18/21 02/18/21 Range/Units 12:30 12:31 12:35 WBC (3.8-10.6) k/uL RBC (4.30-5.90) m/uL Hgb (13.0-17.5) gm/dL Hct (39.0-53.0) % MCV (80.0-100.0) fL MCH (25.0-35.0) pg MCHC (31.0-37.0) g/dL RDW (11.5-15.5) % Plt Count (150-450) k/uL MPV Neutrophils % % Lymphocytes % % Monocytes % % Eosinophils % % Basophils % % Neutrophils # (1.3-7.7) k/uL Lymphocytes # (1.0-4.8) k/uL Monocytes # (0-1.0) k/uL Eosinophils # (0-0.7) k/uL Basophils # (0-0.2) k/uL PT (9.0-12.0) sec INR (<1.2) APTT (22.0-30.0) sec D-Dimer (<0.60) mg/L FEU Sodium (137-145) mmol/L Potassium (3.5-5.1) mmol/L Chloride (98-107) mmol/L Carbon Dioxide (22-30) mmol/L Anion Gap mmol/L BUN (9-20) mg/dL Creatinine (0.66-1.25) mg/dL Est GFR (CKD-EPI)AfAm (>60 ml/min/1.73 sqM) Est GFR (CKD-EPI)NonAf (>60 ml/min/1.73 sqM) Glucose (74-99) mg/dL Plasma Lactic Acid Clarence 1.0 (0.7-2.0) mmol/L Calcium (8.4-10.2) mg/dL Magnesium (1.6-2.3) mg/dL Total Bilirubin (0.2-1.3) mg/dL AST (17-59) U/L ALT (4-49) U/L Alkaline Phosphatase (38-126) U/L NT-Pro-B Natriuret Pep 5310 pg/mL Total Protein (6.3-8.2) g/dL Albumin (3.5-5.0) g/dL Coronavirus (PCR) Not Detected (Not Detectd) - Radiology Data Radiology results: image reviewed (Chest x-ray does show some edema) Disposition Clinical Impression: Congestive heart failure Disposition: ADMITTED IP TO THIS HOSP Is patient prescribed a controlled substance at d/c from ED?: No Referrals: Veronica Guardado MD [Primary Care Provider] - 1-2 days Decision Time: 13:42
[2021-02-18 12:55] LABS: Basophils % (A) 1 %; Eosinophils # (A) 0.2 k/uL (0-0.7); Eosinophils % (A) 3 %; HGB 9.8 gm/dL (13.0-17.5); Lymphocytes # (A) 0.8 k/uL (1.0-4.8); Lymphocytes % (A) 12 %; MCH 31.9 pg (25.0-35.0); MCHC 33.9 g/dL (31.0-37.0); Mean Platelet Volume 7.9; Monocytes # (A) 0.5 k/uL (0-1.0); Monocytes % (A) 7 %; Neutrophils # (A) 5.1 k/uL (1.3-7.7); Neutrophils % (A) 75 %; Platelet Count 202 k/uL (150-450); RBC 3.08 m/uL (4.30-5.90); RDW 12.5 % (11.5-15.5); WBC 6.8 k/uL (3.8-10.6)
--- NOTE | 2021-02-18 12:56 | XR ---
EXAMINATION TYPE: XR chest 2V DATE OF EXAM: 02/18/2021 COMPARISON: This x-ray 07/06/2018 HISTORY: Breathing TECHNIQUE: Frontal and lateral views of the chest are obtained. FINDINGS: There is no focal air space opacity, pleural effusion, or pneumothorax seen. The cardiac silhouette size is within normal limits. Interstitium is more prominent than on prior exam, Dylan B- lines are present. The aorta is dense. Prominent lung volumes suggest underlying COPD. The osseous st ructures are intact. IMPRESSION: Correlate for pulmonary venous hypertension and interstitial edema.
[2021-02-18 13:10] LABS: INR 0.9 (<1.2); Partial Thromboplastin Time 24.5 sec (22.0-30.0); Prothrombin Time 10.1 sec (9.0-12.0)
[2021-02-18 13:12] LABS: Albumin 3.8 g/dL (3.5-5.0); Calcium 9.1 mg/dL (8.4-10.2); Potassium 4.7 mmol/L (3.5-5.1); Total Bilirubin 0.3 mg/dL (0.2-1.3); Total Protein 6.8 g/dL (6.3-8.2)
[2021-02-18] MEDS ORDERED: NALOXONE 0.4 MG/ML 1 ML VIAL IV PRN (13:43)
[2021-02-18] MEDS: NITROGLYCERIN OINT 1 INCH/GM PACKET TOPICAL SCH ×3 (16:50→23:07)
[2021-02-18] MEDS: FUROSEMIDE 10 MG/ML 4 ML VIAL IV SCH ×2 (16:50→23:07)
--- NOTE | 2021-02-18 16:54 | NM ---
EXAMINATION TYPE: NM pul vent and perfuse DATE OF EXAM: 02/18/2021 COMPARISON: 02/18/2021 chest x-ray HISTORY: Dyspnea TECHNIQUE: Utilizing inhalation of 65.9 mCi Tc 99m DTPA aerosol and intravenous injection of 5.0 mCi of Tc 99m MAA, ventilation and perfusion images are acquired post injection in multiple projections. FINDINGS: No moderate or large mismatched defects are evident between ventilation and perfusion. No triple matc hed defects are identified although there is a suggestion of a small posterior pleural effusion on th e lateral projection chest film. IMPRESSION: Low probability for pulmonary embolism.
[2021-02-18] MEDS ORDERED: ERGOCALCIFEROL 1,250 MCG (50,000 IU) CAPSULE PO SCH (17:00)
--- NOTE | 2021-02-18 17:40 | P.HPIM ---
History of Present Illness H&P Date: 02/18/21 Og Martines, is a 75-year-old male who presented to [facility] emergency room with a chief complaint of worsening shortness of breath He was evaluated in the emergency room vital examination on presentation revealed a temperature of 97.3 pulse 65 respiration 18 blood pressure 159/68 pulse ox 98% on room air Laboratory data reveals a white blood count of 6.8 hemoglobin 9.8 platelet count 202 d-dimer 0.88 sodium 138 potassium 4.7 chloride 109 BUN 59 creatinine 3.5 troponin level 0.133 BNP level 5310 coronavirus PCR was negative Testing in the emergency room revealed chest x-ray done in the emergency room revealed pulmonary venous hypertension and interstitial edema, EKG revealed normal sinus rhythm with ST and T-wave abnormalities in the inferior and lateral leads Patient was admitted to medical floor for further evaluation and treatment. Cardiology consultation and nephrology consultation were requested Past medical history is significant for history of hypertension, history of hyperlipidemia, history of chronic kidney disease stage IV, history of insulin- dependent diabetes mellitus, history of coronary artery disease, history of congestive heart failure, history of Gastroesophageal reflux disease On review of systems Patient was seen and examined on the medical floor, he is alert and oriented x 3 in no distress, he is complaining of shortness of breath otherwise he denies any complaints there is no fever or chills no headache or dizziness no chest pain, no palpitation no cough no nausea or vomiting no abdominal pain no diarrhea no blood in the stools no burning with urination no frequency or urgency and no hematuria, there is no weakness or numbness in any of the extremities no change in vision speech or gait. Past Medical History Past Medical History: Coronary Artery Disease (CAD), CVA/TIA, Diabetes Mellitus, GERD/Reflux, Hyperlipidemia, Hypertension Additional Past Medical History / Comment(s): labyrinthitis, 10/2015 - TIA no effects from, neuropathy and poor circulation [place] legs and feet, boot on left foot from injury 03/2016, states had high potassium 03/2016 History of Any Multi-Drug Resistant Organisms: None Reported Past Surgical History: Appendectomy, Heart Catheterization With Stent Additional Past Surgical History / Comment(s): LASER DIABETIC RETINOPATHY EYE SURGERY, one cardiac stent, aortogram, RIGHT FEM POP Past Anesthesia/Blood Transfusion Reactions: No Reported Reaction Additional Past Anesthesia/Blood Transfusion Reaction / Comment(s): . Date of Last Stent Placement:: 2001 Past Psychological History: Depression Smoking Status: Never smoker Past Alcohol Use History: None Reported Past Drug Use History: None Reported - Past Family History Father Family Medical History: Hypertension Additional Family Medical History / Comment(s): ALCOHOLIC, DID NOT KNOW DAD VERY WELL. Mother Family Medical History: Diabetes Mellitus Additional Family Medical History / Comment(s): Pt states mother had "heart trouble" Medications and Allergies Home Medications Medication Instructions Recorded Confirmed Type Isosorbide Mononitrate [Imdur] 30 mg PO BID 01/09/14 02/18/21 History Sertraline [Zoloft] 100 mg PO DAILY 01/09/14 02/18/21 History Aspirin EC [Ecotrin Low Dose] 81 mg PO DAILY 11/08/15 02/18/21 History amLODIPine [Norvasc] 5 mg PO BID 11/08/15 02/18/21 History Clopidogrel [Plavix] 75 mg PO DAILY tab 11/11/15 02/18/21 Rx Carvedilol [Coreg] 25 mg PO BID 03/30/16 02/18/21 History Ergocalciferol [Vitamin D2] 50,000 unit PO SUWE 07/06/18 02/18/21 History Insulin Glargine [Lantus Vial] 55 unit SQ HS 07/06/18 02/18/21 History Atorvastatin [Lipitor] 40 mg PO HS 02/18/21 02/18/21 History Furosemide [Lasix] 40 mg PO DAILY 02/18/21 02/18/21 History INSULIN ASPART (NovoLOG) [NovoLOG See Protocol SQ AC-TID PRN 02/18/21 02/18/21 History (formulary)] calcitrioL [Calcitriol] 0.5 mcg PO DIRECTED 02/18/21 02/18/21 History hydrALAZINE HCL [Apresoline] 75 mg PO BID@1630,2300 02/18/21 02/18/21 History hydrALAZINE HCL [Apresoline] 100 mg PO DAILY@1030 02/18/21 02/18/21 History Allergies Allergy/AdvReac Type Severity Reaction Status Date / Time simvastatin AdvReac Diarrhea Verified 02/18/21 13:27 Physical Exam Vitals: Vital Signs Temp Pulse Resp BP Pulse Ox 02/18/21 16:52 63 16 171/65 98 02/18/21 14:41 68 16 166/71 98 02/18/21 13:22 66 16 161/65 98 02/18/21 12:02 97.3 F L 65 18 159/68 98 Intake and Output 02/18/21 02/18/21 02/18/21 06:59 14:59 22:59 Other: Weight 99.79 kg In general patient is alert and oriented x 3 in no distress HEENT head normocephalic and atraumatic Neck is supple no JVD no goiter no lymphadenopathy no carotid bruit Chest examination reveals a scattered crackles bilaterally no wheezing Cardiac exam reveals regular heart sounds S1 and S2 no gallops no murmurs Abdomen is soft nontender no organomegaly with normal bowel sounds Extremity exam reveals 1+ edema no cyanosis or clubbing Neurological examination reveals no gross focal deficits Results CBC & Chem 7: 02/18/21 12:30 02/18/21 12:30 Labs: Abnormal Lab Results - Last 24 Hours (Table) 02/18/21 02/18/21 02/18/21 Range/Units 12:30 12:30 12:30 RBC 3.08 L (4.30-5.90) m/uL Hgb 9.8 L (13.0-17.5) gm/dL Hct 29.0 L (39.0-53.0) % Lymphocytes # 0.8 L (1.0-4.8) k/uL D-Dimer 0.88 H (<0.60) mg/L FEU Chloride 109 H (98-107) mmol/L Carbon Dioxide 18 L (22-30) mmol/L BUN 59 H (9-20) mg/dL Creatinine 3.50 H (0.66-1.25) mg/dL Glucose 208 H (74-99) mg/dL Troponin I (0.000-0.034) ng/mL 02/18/21 Range/Units 12:30 RBC (4.30-5.90) m/uL Hgb (13.0-17.5) gm/dL Hct (39.0-53.0) % Lymphocytes # (1.0-4.8) k/uL D-Dimer (<0.60) mg/L FEU Chloride (98-107) mmol/L Carbon Dioxide (22-30) mmol/L BUN (9-20) mg/dL Creatinine (0.66-1.25) mg/dL Glucose (74-99) mg/dL Troponin I 0.133 H* (0.000-0.034) ng/mL Assessment and Plan Plan: Acute exacebation of congesive heart failure, patient started on IV Lasix, pulmonary consultation was requested Elevated D-Dimer, computed tomography scan angiogram of the chest was not done due to elevated creatinine Will check VQ scan Underlying history of CKD, patient follows with Dr. Larson. Nephrology consultation was requested Underlying history of insulin-dependent diabetes mellitus Underlying history of hypertension Underlying history of hyperlipidemia Underlying history of coronary artery disease Underlying history of gastroesophageal reflux disease At this time patient is admitted to telemetry floor He was started on IV Lasix Cardiology consultation and nephrology consultation requested Home medications reviewed and reordered Will follow closely
[2021-02-18] MEDS: CLOPIDOGREL 75 MG TAB PO SCH (18:54)
[2021-02-18] MEDS: SERTRALINE 100 MG TAB PO SCH (18:55)
[2021-02-18] MEDS: ASPIRIN 81 MG PO SCH (18:55)
[2021-02-18 20:38] LABS: Glucose,Whole Blood 240 mg/dL (75-99)
[2021-02-18] MEDS: ATORVASTATIN 40 MG TAB PO SCH (20:41)
[2021-02-18] MEDS: carvediloL 12.5 MG TAB PO SCH (20:41)
[2021-02-18] MEDS: ISOSORBIDE MONONITRATE ER 30 MG TAB.ER.24H PO SCH (20:42)
[2021-02-18] MEDS: INSULIN DETEMIR (LEVEMIR) 100 UNIT/ML SYR SQ SCH (20:42)
[2021-02-18] MEDS: amLODIPine 5 MG TAB PO SCH (20:42)
[2021-02-18] MEDS: hydrALAZINE HCL 25 MG TAB PO SCH (23:07)
[2021-02-19] MEDS: NITROGLYCERIN OINT 1 INCH/GM PACKET TOPICAL SCH ×2 (05:38→14:16)
[2021-02-19 06:12] LABS: Glucose,Whole Blood 98 mg/dL (75-99)
[2021-02-19] MEDS ORDERED: ASPIRIN 325 MG TAB PO SCH (09:00)
[2021-02-19 09:15] LABS: Basophils % (A) 1 %; Eosinophils # (A) 0.3 k/uL (0-0.7); Eosinophils % (A) 4 %; HCT 28.4 % (39.0-53.0); HGB 9.6 gm/dL (13.0-17.5); Lymphocytes # (A) 1.1 k/uL (1.0-4.8); Lymphocytes % (A) 17 %; MCH 31.5 pg (25.0-35.0); MCHC 33.9 g/dL (31.0-37.0); MCV 92.9 fL (80.0-100.0); Monocytes # (A) 0.5 k/uL (0-1.0); Monocytes % (A) 8 %; Neutrophils # (A) 4.3 k/uL (1.3-7.7); Neutrophils % (A) 68 %; Platelet Count 232 k/uL (150-450); RBC 3.06 m/uL (4.30-5.90); RDW 13.2 % (11.5-15.5); WBC 6.3 k/uL (3.8-10.6)
[2021-02-19] MEDS: carvediloL 12.5 MG TAB PO SCH ×2 (09:23→21:31)
[2021-02-19] MEDS: hydrALAZINE HCL 25 MG TAB PO SCH ×3 (09:23→22:03)
[2021-02-19] MEDS: amLODIPine 5 MG TAB PO SCH ×2 (09:23→21:32)
[2021-02-19] MEDS: SERTRALINE 100 MG TAB PO SCH (09:23)
[2021-02-19] MEDS: ASPIRIN 81 MG PO SCH (09:23)
[2021-02-19] MEDS: CLOPIDOGREL 75 MG TAB PO SCH (09:23)
[2021-02-19] MEDS: ISOSORBIDE MONONITRATE ER 30 MG TAB.ER.24H PO SCH ×2 (09:23→21:32)
[2021-02-19] MEDS: FUROSEMIDE 10 MG/ML 4 ML VIAL IV SCH ×2 (09:23→21:30)
[2021-02-19 09:24] LABS: Albumin 3.5 g/dL (3.5-5.0); Calcium 9.1 mg/dL (8.4-10.2); Potassium 4.3 mmol/L (3.5-5.1); Total Bilirubin 0.3 mg/dL (0.2-1.3); Total Protein 6.3 g/dL (6.3-8.2)
[2021-02-19] MEDS ORDERED: HEPARIN SODIUM 1,000 UN/ML (10ML VL) IV PRN (09:31)
[2021-02-19] MEDS ORDERED: HEPARIN SODIUM 1,000 UN/ML (10ML VL) IV ONE (09:31)
[2021-02-19 11:22] LABS: Prothrombin Time 10.4 sec (9.0-12.0)
[2021-02-19 11:29] LABS: Basophils % (A) 1 %; Eosinophils # (A) 0.2 k/uL (0-0.7); Eosinophils % (A) 4 %; HCT 28.6 % (39.0-53.0); HGB 9.8 gm/dL (13.0-17.5); Lymphocytes # (A) 0.8 k/uL (1.0-4.8); Lymphocytes % (A) 15 %; MCH 31.8 pg (25.0-35.0); MCHC 34.2 g/dL (31.0-37.0); MCV 92.9 fL (80.0-100.0); Mean Platelet Volume 7.9; Monocytes # (A) 0.4 k/uL (0-1.0); Monocytes % (A) 7 %; Neutrophils # (A) 4.2 k/uL (1.3-7.7); Neutrophils % (A) 72 %; Platelet Count 228 k/uL (150-450); RBC 3.07 m/uL (4.30-5.90); RDW 13.1 % (11.5-15.5); WBC 5.8 k/uL (3.8-10.6)
[2021-02-19 11:56] LABS: Glucose,Whole Blood 100 mg/dL (75-99)
--- NOTE | 2021-02-19 12:22 | P.CRDCN ---
History of Present Illness Consult date: 02/19/21 History of present illness: HISTORY OF PRESENT ILLNESS: This is a 75-year-old male with a past medical history significant for diabetes, hypertension, hyperlipidemia, nicotine dependence, chronic kidney disease, coronary artery disease with previous stenting, and peripheral vascular disease with previous stenting. Patient follows in the office with Dr. Arevalo. We have been asked to see the patient in consultation for congestive heart failure. Patient examined at the bedside. Patient states he has been feeling short of breath for the past few days. He also noticed some increased lower extremity edema. Patient denies any chest pain or pressure. Patient states he has been compliant with his medications. He denies any increased salt intake. The patient states he does not weigh himself at home. The patient was started on IV lasix in the emergency room. He reports improvement in his symptoms today. EKG reveals sinus mechanism with ST depression in inferolateral leads, similar to EKG in 2019, however ST depression in lateral leads more pronounced on current EKG Chest xray correlate for pulmonary venous hypertension and interstitial edema VQ scan: Low probability for PE Laboratory data: WBC 5.8. Hemoglobin 9.8. Platelet count 228. Sodium 142. Potassium 4.3. BUN 57. Creatinine 3.71. Troponin 0.133. 0.316. 0.368. 0.207. Current home cardiac medications include hydralazine 100 mg in the morning, 75 mg in the afternoon and 75 mg at night, Lasix 40 mg daily, amlodipine 5 mg twice a day, Imdur 30 mg twice a day, Plavix 75 mg daily, carvedilol 25 mg twice a day, Lipitor 40 mg daily, and aspirin 81 mg daily Most recent echocardiogram obtained in November 2020 revealed ejection fraction 55-60%, moderate mitral regurgitation, [id number] aortic regurgitation, mild tricuspid regurgitation. Cardiac catheterization history: 2001 with PCI to the RCA REVIEW OF SYSTEMS: At the time of my exam: CONSTITUTIONAL: Denies fever or chills. HEENT: Denies blurred vision, vision changes, or eye pain. Denies hemoptysis CARDIOVASCULAR: Denies chest pain. Denies orthopnea. Denies PND. Denies palpitations RESPIRATORY: Denies shortness of breath. GASTROINTESTINAL: Denies abdominal pain. Denies nausea or vomiting. HEMATOLOGIC: Denies bleeding disorders. GENITOURINARY: Denies any blood in urine. SKIN: Denies pruitis. Denies rash. PHYSICAL EXAM: VITAL SIGNS: Reviewed. GENERAL: Well-developed in no acute distress. HEENT: Head is normocephalic. Pupils are equal, round. Sclerae anicteric. Mucous membranes of the mouth are moist. Neck supple. No JVD or thyromegaly LUNGS: Respirations even and unlabored. Lungs diminished to auscultation bilaterally. HEART: Regular rate and rhythm. S1 and S2 heard. Systolic murmur noted. ABDOMEN: Soft. Nondistended. Nontender. EXTREMITIES: Normal range of motion. No clubbing or cyanosis. Peripheral pulses intact. Trace bilateral lower extremity edema NEUROLOGIC: Awake and alert. Oriented x 3. ASSESSMENT: Acute exacerbation of chronic diastolic congestive heart failure Abnormal troponins, possible non-stemi Acute on chronic kidney disease Coronary artery disease with PCI to RCA Peripheral vascular disease with previous stenting to left SFA Hypertension Hyperlipidemia Nicotine dependence PLAN: Obtain 2D echo to assess cardiac structure and function Nephrology following. Lasix 40mg IV q 12 hours Accurate I & O Daily weights Monitor kidney function Begin IV heparin infusion Further recommendations pending patient course Nurse practitioner note has been reviewed by physician. Signing provider agrees with the documented findings, assessment, and plan of care. Past Medical History Past Medical History: Coronary Artery Disease (CAD), Heart Failure, CVA/TIA, Diabetes Mellitus, GERD/Reflux, Hyperlipidemia, Hypertension Additional Past Medical History / Comment(s): labyrinthitis, 10/2015 - TIA no effects from, neuropathy and poor circulation [place] legs and feet, boot on left f oot from injury 03/2016, states had high potassium 03/2016 History of Any Multi-Drug Resistant Organisms: None Reported Past Surgical History: Appendectomy, Heart Catheterization With Stent Additional Past Surgical History / Comment(s): LASER DIABETIC RETINOPATHY EYE SURGERY, one cardiac stent, aortogram, RIGHT FEM POP Past Anesthesia/Blood Transfusion Reactions: No Reported Reaction Additional Past Anesthesia/Blood Transfusion Reaction / Comment(s): . Date of Last Stent Placement:: 2001 Past Psychological History: Depression Smoking Status: Never smoker Past Alcohol Use History: None Reported Additional Past Alcohol Use History / Comment(s): quit smoking 35 yrs ago, smoked for 14 yrs- 2 PPD Past Drug Use History: None Reported - Past Family History Father Family Medical History: Hypertension Additional Family Medical History / Comment(s): ALCOHOLIC, DID NOT KNOW DAD VERY WELL. Mother Family Medical History: Diabetes Mellitus Additional Family Medical History / Comment(s): Pt states mother had "heart trouble" Brother(s) Family Medical History: Diabetes Mellitus Medications and Allergies Home Medications Medication Instructions Recorded Confirmed Type Isosorbide Mononitrate [Imdur] 30 mg PO BID 01/09/14 02/18/21 History Sertraline [Zoloft] 100 mg PO DAILY 01/09/14 02/18/21 History Aspirin EC [Ecotrin Low Dose] 81 mg PO DAILY 11/08/15 02/18/21 History amLODIPine [Norvasc] 5 mg PO BID 11/08/15 02/18/21 History Clopidogrel [Plavix] 75 mg PO DAILY tab 11/11/15 02/18/21 Rx Carvedilol [Coreg] 25 mg PO BID 03/30/16 02/18/21 History Ergocalciferol [Vitamin D2] 50,000 unit PO SUWE 07/06/18 02/18/21 History Insulin Glargine [Lantus Vial] 55 unit SQ HS 07/06/18 02/18/21 History Atorvastatin [Lipitor] 40 mg PO HS 02/18/21 02/18/21 History Furosemide [Lasix] 40 mg PO DAILY 02/18/21 02/18/21 History INSULIN ASPART (NovoLOG) [NovoLOG See Protocol SQ AC-TID PRN 02/18/21 02/18/21 History (formulary)] calcitrioL [Calcitriol] 0.5 mcg PO DIRECTED 02/18/21 02/18/21 History hydrALAZINE HCL [Apresoline] 75 mg PO BID@1630,2300 02/18/21 02/18/21 History hydrALAZINE HCL [Apresoline] 100 mg PO DAILY@1030 02/18/21 02/18/21 History Allergies Allergy/AdvReac Type Severity Reaction Status Date / Time simvastatin AdvReac Diarrhea Verified 02/18/21 13:27 Physical Exam Vitals: Vital Signs Temp Pulse Pulse Resp BP BP Pulse Ox 02/19/21 09:19 98.0 F 65 18 179/72 99 02/19/21 04:00 98.2 F 63 18 140/48 97 02/18/21 23:26 98.3 F 62 18 133/57 98 11/03/21 20:00 97.9 F 54 L 16 165/62 98 02/18/21 16:52 63 16 171/65 98 02/18/21 14:41 68 16 166/71 98 02/18/21 13:22 66 16 161/65 98 Intake and Output 02/18/21 02/19/21 02/19/21 22:59 06:59 14:59 Intake Total 240 Output Total 950 500 Balance -710 -500 Intake: Oral 240 Output: Urine 950 500 Other: Voiding Method Urinal Weight 99.79 kg 96.6 kg Results 02/19/21 10:42 02/19/21 08:11 Cardiac Enzymes 02/18/21 02/18/21 02/18/21 Range/Units 12:30 12:30 16:54 AST 20 (17-59) U/L Troponin I 0.133 H* 0.316 H* (0.000-0.034) ng/mL 02/18/21 02/19/21 02/19/21 Range/Units 20:57 08:11 08:11 AST 19 (17-59) U/L Troponin I 0.368 H* 0.207 H* (0.000-0.034) ng/mL Coagulation 02/18/21 02/19/21 Range/Units 12:30 10:42 PT 10.1 10.4 (9.0-12.0) sec APTT 24.5 23.0 (22.0-30.0) sec CBC 02/18/21 02/19/21 02/19/21 Range/Units 12:30 08:11 10:42 WBC 6.8 6.3 5.8 (3.8-10.6) k/uL RBC 3.08 L 3.06 L 3.07 L (4.30-5.90) m/uL Hgb 9.8 L 9.6 L 9.8 L (13.0-17.5) gm/dL Hct 29.0 L 28.4 L 28.6 L (39.0-53.0) % Plt Count 202 232 228 (150-450) k/uL Comprehensive Metabolic Panel 02/18/21 02/19/21 Range/Units 12:30 08:11 Sodium 138 142 (137-145) mmol/L Potassium 4.7 4.3 (3.5-5.1) mmol/L Chloride 109 H 108 H (98-107) mmol/L Carbon Dioxide 18 L 24 (22-30) mmol/L BUN 59 H 57 H (9-20) mg/dL Creatinine 3.50 H 3.71 H (0.66-1.25) mg/dL Glucose 208 H 88 (74-99) mg/dL Calcium 9.1 9.1 (8.4-10.2) mg/dL AST 20 19 (17-59) U/L ALT 15 13 (4-49) U/L Alkaline Phosphatase 54 50 (38-126) U/L Total Protein 6.8 6.3 (6.3-8.2) g/dL Albumin 3.8 3.5 (3.5-5.0) g/dL Current Medications Generic Name Dose Route Start Last Admin Trade Name Freq PRN Reason Stop Dose Admin Amlodipine Besylate 5 mg 02/18/21 21:00 02/19/21 09:23 Amlodipine 5 Mg Tab PO 5 mg BID ALEJO Administration Aspirin 81 mg 02/18/21 17:00 02/19/21 09:23 Aspirin 81 Mg PO 81 mg DAILY ALEJO Administration Atorvastatin Calcium 40 mg 02/18/21 21:00 02/18/21 20:41 Atorvastatin 40 Mg Tab PO 40 mg HS ALEJO Administration Calcitriol 0.5 mcg 02/18/21 17:00 02/18/21 18:53 Calcitriol 0.25 Mcg Cap PO Not Given DIRECTED ALEJO Carvedilol 25 mg 02/18/21 21:00 02/19/21 09:23 Carvedilol 12.5 Mg Tab PO 25 mg BID ALEJO Administration Clopidogrel Bisulfate 75 mg 02/18/21 17:00 02/19/21 09:23 Clopidogrel 75 Mg Tab PO 75 mg DAILY ALEJO Administration Ergocalciferol 1,250 mcg 02/18/21 17:00 02/18/21 18:55 Ergocalciferol 1,250 Mcg (50,000 Iu) Capsule PO Not Given SUWE ALEJO Furosemide 40 mg 02/19/21 21:00 Furosemide 10 Mg/Ml 4 Ml Vial IV Q12HR [facility] Heparin Sodium (Porcine) 0 unit 02/19/21 09:31 Heparin Sodium 1,000 Un/Ml (10ml Vl) IV PER PROTOCOL PRN Low PTT Protocol Hydralazine HCl 75 mg 02/18/21 23:00 02/18/21 23:07 Hydralazine Hcl 25 Mg Tab PO 75 mg BID@1630,2300 ALEJO Administration Hydralazine HCl 100 mg 02/19/21 10:30 02/19/21 09:23 Hydralazine Hcl 25 Mg Tab PO 100 mg DAILY@1030 ALEJO Administration Heparin Sodium/Sodium Chloride 250 mls @ 9.998 mls/hr 02/19/21 09:45 25,000 unit/ Sodium Chloride IV .Q24H [facility] Protocol 10.35 UNITS/KG/HR Insulin Detemir 55 unit 02/18/21 21:00 02/18/21 20:42 Insulin Detemir (Levemir) 100 Unit/Ml Syr SQ 55 unit HS ALEJO Administration Isosorbide Mononitrate 30 mg 02/18/21 21:00 02/19/21 09:23 Isosorbide Mononitrate Er 30 Mg Tab.Er.24h PO 30 mg BID ALEJO Administration Naloxone HCl 0.2 mg 02/18/21 13:43 Naloxone 0.4 Mg/Ml 1 Ml Vial IV Q2M PRN Opioid Reversal Nitroglycerin 1 inch 02/18/21 13:45 02/19/21 05:38 Nitroglycerin Oint 1 Inch/Gm Packet TOPICAL 1 inch Q6HR ALEJO Administration Sertraline HCl 100 mg 02/18/21 17:00 02/19/21 09:23 Sertraline 100 Mg Tab PO 100 mg DAILY ALEJO Administration Intake and Output 02/18/21 02/19/21 02/19/21 22:59 06:59 14:59 Intake Total 240 Output Total 950 500 Balance -710 -500 Intake: Oral 240 Output: Urine 950 500 Other: Voiding Method Urinal Weight 99.79 kg 96.6 kg 02/19/21 10:42 02/19/21 08:11
[2021-02-19] MEDS: HEPARIN SOD,PORK IN 0.45% NACL 25,000 UNIT in 0.45% NACL 1 250ML.BAG IV SCH (12:58)
--- NOTE | 2021-02-19 13:18 | CONS ---
CONSULTATION REASON FOR CONSULTATION: Renal failure. HISTORY OF PRESENT ILLNESS: Patient is a 75-year-old male with CKD stage 4 secondary to nephrosclerosis. Baseline creatinine around 3.5 to 3.4 mg/dL. Patient was admitted to the hospital with complaints of increased shortness of breath. This had been progressively worsening over the last few weeks. Patient was found to be hypervolemic with evidence of CHF on chest x-ray. He is currently being diuresed and states he is feeling much better. No complaints of chest pains. No complaints of fever, chills, cough, nausea, vomiting or diarrhea. Serum creatinine this admission was 3.5, increased to 3.7 mg/dL. Previous creatinine 2.6 in August of 2020. PAST MEDICAL HISTORY: CKD stage 4, coronary artery disease, history of CVA, TIA, type 2 diabetes, gastroesophageal reflux disease, hyperlipidemia, hypertension, labyrinthitis, peripheral vascular disease. PAST SURGICAL HISTORY: Appendectomy, cardiac catheterization, coronary stent placement. SOCIAL HISTORY: Negative for smoking, drug abuse or alcohol abuse. MEDICATIONS: Medications prior to admission included Imdur, Zoloft, Norvasc, Plavix, Coreg, vitamin D2, Lasix, Lipitor, insulin, hydralazine, calcitriol. ALLERGIES: ALLERGIES include SIMVASTATIN; causes diarrhea. PHYSICAL EXAMINATION: Patient is comfortable, awake, not in any acute distress. Alert, oriented x3. Blood pressure was on 179/72. Previous blood pressure 140/48. Heart rate 65 per minute. He is afebrile. EXAMINATION OF THE HEART: S1 and S2. EXAMINATION OF LUNGS: Bilateral breath sounds are heard. Abdomen is soft, non-tender. Examination of lower extremities shows no significant edema. EXECUTIVE PASTRY CHEF EXAM: Grossly intact. LABS: Sodium 142, potassium 4.3, chloride 108, BUN 57, serum creatinine 3.7, hemoglobin 9.6 g/dL. Troponin 0.368, down to 0.220 now. Coronavirus PCR is negative. ASSESSMENT: 1. Acute kidney injury, mostly cardiorenal. No nephrotoxic medications on board. Blood pressure is not low. I will continue with the IV Lasix for now. We can decrease it to q.12 hours and repeat labs in a.m. 2. Chronic kidney disease mineral bone disorder, maintained on calcitriol. 3. Chronic kidney disease, stage 4. Baseline creatinine around 3 mg/dL. Previous creatinine, however, in July was about 2.6 mg/dL. Check urinalysis. Check ultrasound of the kidneys if not done recently, as renal function seems to have been worsening over the last few months. 4. Type 2 diabetes. 5. History of coronary artery disease. PLAN: Decrease Lasix to q.12 hours. Check UA. Check ultrasound of the kidneys. Avoid hypotension. Continue calcitriol. Thank you for this consultation. Will continue to follow the patient with you during his hospitalization. MMENRIQUEL / YENIFERN: [id number] /
--- NOTE | 2021-02-19 14:00 | US ---
EXAMINATION TYPE: US kidneys/renal and bladder DATE OF EXAM: 02/19/2021 COMPARISON: NONE CLINICAL HISTORY: RF. renal failure, no symptoms EXAM MEASUREMENTS: Right Kidney: 10.9 x 4.4 x 5.7 cm Left Kidney: 10.5 x 4.5 x 6.1 cm Right Kidney: No hydronephrosis or masses seen Left Kidney: No hydronephrosis or masses seen Bladder: Limited by incomplete distention. Visualized portions within normal limits. IMPRESSION: No hydronephrosis or nephrolithiasis.
[2021-02-19 16:43] LABS: Glucose,Whole Blood 249 mg/dL (75-99)
[2021-02-19 17:08] LABS: Appearance,Urine Clear (Clear); Bilirubin,Urine Negative (Negative); Blood,Urine Negative (Negative); Color,Urine Light Yellow; Glucose,Urine (UA) 3+ (Negative); Hyaline Casts,Urine 4 /lpf (0-2); Ketones,Urine Negative (Negative); Leukocyte Esterase,Urine Negative (Negative); Mucus,Urine Rare /hpf; Nitrite,Urine Negative (Negative); PH, Urine 5.5 (5.0-8.0); Protein,Urine 2+ (Negative); RBC,Urine 1 /hpf (0-5); Urobilinogen,Urine <2.0 mg/dL (<2.0); WBC,Urine 1 /hpf (0-5)
[2021-02-19 20:45] LABS: Glucose,Whole Blood 246 mg/dL (75-99)
[2021-02-19] MEDS: INSULIN ASPART (NovoLOG) 100 UNIT/ML VIAL SQ SCH (21:30)
[2021-02-19] MEDS: INSULIN DETEMIR (LEVEMIR) 100 UNIT/ML SYR SQ SCH (21:30)
[2021-02-19] MEDS: ATORVASTATIN 40 MG TAB PO SCH (21:32)
[2021-02-20 05:55] LABS: Glucose,Whole Blood 122 mg/dL (75-99)
[2021-02-20] MEDS: INSULIN ASPART (NovoLOG) 100 UNIT/ML VIAL SQ SCH ×4 (06:00→21:03)
[2021-02-20] MEDS: amLODIPine 5 MG TAB PO SCH ×2 (09:01→21:03)
[2021-02-20] MEDS: FUROSEMIDE 10 MG/ML 4 ML VIAL IV SCH (09:01)
[2021-02-20] MEDS: SERTRALINE 100 MG TAB PO SCH (09:01)
[2021-02-20] MEDS: ISOSORBIDE MONONITRATE ER 30 MG TAB.ER.24H PO SCH ×2 (09:01→21:03)
[2021-02-20] MEDS: CLOPIDOGREL 75 MG TAB PO SCH (09:01)
[2021-02-20] MEDS: carvediloL 12.5 MG TAB PO SCH ×2 (09:01→21:03)
[2021-02-20] MEDS: ASPIRIN 81 MG PO SCH (09:01)
[2021-02-20] MEDS: HEPARIN SOD,PORK IN 0.45% NACL 25,000 UNIT in 0.45% NACL 1 250ML.BAG IV SCH (09:02)
[2021-02-20 09:17] LABS: Basophils # (A) 0.1 k/uL (0-0.2); Basophils % (A) 1 %; Eosinophils # (A) 0.3 k/uL (0-0.7); Eosinophils % (A) 5 %; HCT 29.6 % (39.0-53.0); HGB 9.7 gm/dL (13.0-17.5); Lymphocytes # (A) 1.2 k/uL (1.0-4.8); Lymphocytes % (A) 20 %; MCHC 32.7 g/dL (31.0-37.0); MCV 94.7 fL (80.0-100.0); Mean Platelet Volume 8.1; Monocytes # (A) 0.5 k/uL (0-1.0); Monocytes % (A) 8 %; Neutrophils # (A) 3.8 k/uL (1.3-7.7); Neutrophils % (A) 63 %; Platelet Count 210 k/uL (150-450); RBC 3.12 m/uL (4.30-5.90); RDW 12.5 % (11.5-15.5); WBC 6.1 k/uL (3.8-10.6)
--- NOTE | 2021-02-20 09:48 | P.PN ---
Subjective Progress Note Date: 02/19/21 Og Martines, is a 75-year-old male who presented to [facility] emergency room with a chief complaint of worsening shortness of breath He was evaluated in the emergency room vital examination on presentation revealed a temperature of 97.3 pulse 65 respiration 18 blood pressure 159/68 pulse ox 98% on room air Laboratory data reveals a white blood count of 6.8 hemoglobin 9.8 platelet count 202 d-dimer 0.88 sodium 138 potassium 4.7 chloride 109 BUN 59 creatinine 3.5 troponin level 0.133 BNP level 5310 coronavirus PCR was negative Testing in the emergency room revealed chest x-ray done in the emergency room revealed pulmonary venous hypertension and interstitial edema, EKG revealed nor mal sinus rhythm with ST and T-wave abnormalities in the inferior and lateral leads Patient was admitted to medical floor for further evaluation and treatment. Cardiology consultation and nephrology consultation were requested Past medical history is significant for history of hypertension, history of hyperlipidemia, history of chronic kidney disease stage IV, history of insulin- dependent diabetes mellitus, history of coronary artery disease, history of congestive heart failure, history of Gastroesophageal reflux disease On review of systems Patient was seen and examined on the medical floor, he is alert and oriented x 3 in no distress, he is complaining of shortness of breath otherwise he denies any complaints there is no fever or chills no headache or dizziness no chest pain, no palpitation no cough no nausea or vomiting no abdominal pain no diarrhea no blood in the stools no burning with urination no frequency or urgency and no hematuria, there is no weakness or numbness in any of the extremities no change in vision speech or gait. On 02/19/2021 patient's alert and oriented 3. Patient remains on IV Lasix and heparin drip. At this time patient reports improvement with shortness of breath. Patient denies chest pain. Patient denies nausea vomiting or diarrhea. Patient denies any urinary burning or frequency. Nephrology cardiology services are following Objective - Vital Signs Vital signs: Vital Signs Temp 98.0 F 02/19/21 09:19 Pulse 65 02/19/21 09:19 Resp 18 02/19/21 09:19 BP 179/72 02/19/21 09:19 Pulse Ox 99 02/19/21 09:19 Intake & Output 02/18/21 02/19/21 02/19/21 18:59 06:59 18:59 Intake Total 240 Output Total 950 500 Balance -710 -500 Weight 99.79 kg 96.6 kg Intake: Oral 240 Output: Urine 950 500 Other: Voiding Method Urinal - Exam In general patient is alert and oriented x 3 in no distress HEENT head normocephalic and atraumatic Neck is supple no JVD no goiter no lymphadenopathy no carotid bruit Chest examination reveals a scattered crackles bilaterally no wheezing Cardiac exam reveals regular heart sounds S1 and S2 no gallops no murmurs Abdomen is soft nontender no organomegaly with normal bowel sounds Extremity exam reveals 1+ edema no cyanosis or clubbing Neurological examination reveals no gross focal deficits - Labs CBC & Chem 7: 02/20/21 08:39 02/19/21 08:11 Labs: Abnormal Lab Results - Last 24 Hours (Table) 02/18/21 02/18/21 02/18/21 Range/Units 12:30 12:30 12:30 RBC 3.08 L (4.30-5.90) m/uL Hgb 9.8 L (13.0-17.5) gm/dL Hct 29.0 L (39.0-53.0) % Lymphocytes # 0.8 L (1.0-4.8) k/uL D-Dimer 0.88 H (<0.60) mg/L FEU Chloride 109 H (98-107) mmol/L Carbon Dioxide 18 L (22-30) mmol/L BUN 59 H (9-20) mg/dL Creatinine 3.50 H (0.66-1.25) mg/dL Glucose 208 H (74-99) mg/dL POC Glucose (mg/dL) (75-99) mg/dL Troponin I (0.000-0.034) ng/mL 02/18/21 02/18/21 02/18/21 Range/Units 12:30 16:54 20:36 RBC (4.30-5.90) m/uL Hgb (13.0-17.5) gm/dL Hct (39.0-53.0) % Lymphocytes # (1.0-4.8) k/uL D-Dimer (<0.60) mg/L FEU Chloride (98-107) mmol/L Carbon Dioxide (22-30) mmol/L BUN (9-20) mg/dL Creatinine (0.66-1.25) mg/dL Glucose (74-99) mg/dL POC Glucose (mg/dL) 240 H (75-99) mg/dL Troponin I 0.133 H* 0.316 H* (0.000-0.034) ng/mL 02/18/21 02/19/21 02/19/21 Range/Units 20:57 08:11 08:11 RBC 3.06 L (4.30-5.90) m/uL Hgb 9.6 L (13.0-17.5) gm/dL Hct 28.4 L (39.0-53.0) % Lymphocytes # (1.0-4.8) k/uL D-Dimer (<0.60) mg/L FEU Chloride (98-107) mmol/L Carbon Dioxide (22-30) mmol/L BUN (9-20) mg/dL Creatinine (0.66-1.25) mg/dL Glucose (74-99) mg/dL POC Glucose (mg/dL) (75-99) mg/dL Troponin I 0.368 H* 0.207 H* (0.000-0.034) ng/mL 02/19/21 Range/Units 08:11 RBC (4.30-5.90) m/uL Hgb (13.0-17.5) gm/dL Hct (39.0-53.0) % Lymphocytes # (1.0-4.8) k/uL D-Dimer (<0.60) mg/L FEU Chloride 108 H (98-107) mmol/L Carbon Dioxide (22-30) mmol/L BUN 57 H (9-20) mg/dL Creatinine 3.71 H (0.66-1.25) mg/dL Glucose (74-99) mg/dL POC Glucose (mg/dL) (75-99) mg/dL Troponin I (0.000-0.034) ng/mL Assessment and Plan Plan: Acute exacebation of congesive heart failure, patient started on IV Lasix, pulmonary consultation was requested Elevated D-Dimer, computed tomography scan angiogram of the chest was not done due to elevated creatinine Will check VQ scan Underlying history of CKD, patient follows with Dr. Larson. Nephrology consultation was requested Underlying history of insulin-dependent diabetes mellitus Underlying history of hypertension Underlying history of hyperlipidemia Underlying history of coronary artery disease Underlying history of gastroesophageal reflux disease At this time patient is admitted to telemetry floor He was started on IV Lasix Cardiology consultation and nephrology consultation requested Home medications reviewed and reordered Will follow closely
--- NOTE | 2021-02-20 09:50 | P.PN ---
Subjective Progress Note Date: 02/20/21 Og Martines, is a 75-year-old male who presented to [facility] emergency room with a chief complaint of worsening shortness of breath He was evaluated in the emergency room vital examination on presentation revealed a temperature of 97.3 pulse 65 respiration 18 blood pressure 159/68 pulse ox 98% on room air Laboratory data reveals a white blood count of 6.8 hemoglobin 9.8 platelet count 202 d-dimer 0.88 sodium 138 potassium 4.7 chloride 109 BUN 59 creatinine 3.5 troponin level 0.133 BNP level 5310 coronavirus PCR was negative Testing in the emergency room revealed chest x-ray done in the emergency room revealed pulmonary venous hypertension and interstitial edema, EKG revealed nor mal sinus rhythm with ST and T-wave abnormalities in the inferior and lateral leads Patient was admitted to medical floor for further evaluation and treatment. Cardiology consultation and nephrology consultation were requested Past medical history is significant for history of hypertension, history of hyperlipidemia, history of chronic kidney disease stage IV, history of insulin- dependent diabetes mellitus, history of coronary artery disease, history of congestive heart failure, history of Gastroesophageal reflux disease On review of systems Patient was seen and examined on the medical floor, he is alert and oriented x 3 in no distress, he is complaining of shortness of breath otherwise he denies any complaints there is no fever or chills no headache or dizziness no chest pain, no palpitation no cough no nausea or vomiting no abdominal pain no diarrhea no blood in the stools no burning with urination no frequency or urgency and no hematuria, there is no weakness or numbness in any of the extremities no change in vision speech or gait. On 02/19/2021 patient's alert and oriented 3. Patient remains on IV Lasix and heparin drip. At this time patient reports improvement with shortness of breath. Patient denies chest pain. Patient denies nausea vomiting or diarrhea. Patient denies any urinary burning or frequency. Nephrology cardiology services are following On 02/20/2021 patient's alert and oriented 3. Patient reports significant improvement. Awaiting lab work for kidney function. Patient maintained on heparin drip and IV Lasix. Patient currently on 40 mg every 12 hours bladder ultrasound negative. At this time patient denies chest pain or shortness of breath. Patient denies nausea vomiting or diarrhea. Patient denies any urinary burning or frequency Objective - Vital Signs Vital signs: Vital Signs Temp 98.2 F 02/20/21 03:04 Pulse 60 02/20/21 03:04 Resp 18 02/20/21 03:04 BP 155/60 02/20/21 03:04 Pulse Ox 98 02/20/21 03:04 Intake & Output 02/19/21 02/20/21 02/20/21 18:59 06:59 18:59 Intake Total 1277.155 480 531.196 Output Total 1525 350 Balance -247.845 130 531.196 Weight 95.5 kg Intake: IV 20 Invasive Line 1 20 Intake, IV Titration 57.155 171.196 Amount Heparin Sod,Pork in 0.45% 57.155 171.196 NaCl 25,000 unit In 0.45 % NaCl 1 250ml.bag @ 10. 35 UNITS/KG/HR 9.998 mls/ hr IV .Q24H [facility] Rx#: [id number] Oral 1200 480 360 Output: Urine 1525 350 Other: Voiding Method Urinal - Exam In general patient is alert and oriented x 3 in no distress HEENT head normocephalic and atraumatic Neck is supple no JVD no goiter no lymphadenopathy no carotid bruit Chest examination reveals a scattered crackles bilaterally no wheezing Cardiac exam reveals regular heart sounds S1 and S2 no gallops no murmurs Abdomen is soft nontender no organomegaly with normal bowel sounds Extremity exam reveals 1+ edema no cyanosis or clubbing Neurological examination reveals no gross focal deficits - Labs CBC & Chem 7: 02/20/21 08:39 02/19/21 08:11 Labs: Abnormal Lab Results - Last 24 Hours (Table) 02/19/21 02/19/21 02/19/21 Range/Units 08:11 10:42 11:54 RBC 3.07 L (4.30-5.90) m/uL Hgb 9.8 L (13.0-17.5) gm/dL Hct 28.6 L (39.0-53.0) % Lymphocytes # 0.8 L (1.0-4.8) k/uL APTT (22.0-30.0) sec POC Glucose (mg/dL) 100 H (75-99) mg/dL Troponin I 0.207 H* (0.000-0.034) ng/mL Urine Protein (Negative) Urine Glucose (UA) (Negative) Hyaline Casts (0-2) /lpf Urine Mucus (None) /hpf 02/19/21 02/19/21 02/19/21 Range/Units 16:15 16:42 18:03 RBC (4.30-5.90) m/uL Hgb (13.0-17.5) gm/dL Hct (39.0-53.0) % Lymphocytes # (1.0-4.8) k/uL APTT 39.5 H (22.0-30.0) sec POC Glucose (mg/dL) 249 H (75-99) mg/dL Troponin I (0.000-0.034) ng/mL Urine Protein 2+ H (Negative) Urine Glucose (UA) 3+ H (Negative) Hyaline Casts 4 H (0-2) /lpf Urine Mucus Rare H (None) /hpf 02/19/21 02/20/21 02/20/21 Range/Units 20:38 00:09 05:53 RBC (4.30-5.90) m/uL Hgb (13.0-17.5) gm/dL Hct (39.0-53.0) % Lymphocytes # (1.0-4.8) k/uL APTT 47.7 H (22.0-30.0) sec POC Glucose (mg/dL) 246 H 122 H (75-99) mg/dL Troponin I (0.000-0.034) ng/mL Urine Protein (Negative) Urine Glucose (UA) (Negative) Hyaline Casts (0-2) /lpf Urine Mucus (None) /hpf 02/20/21 Range/Units 08:39 RBC 3.12 L (4.30-5.90) m/uL Hgb 9.7 L (13.0-17.5) gm/dL Hct 29.6 L (39.0-53.0) % Lymphocytes # (1.0-4.8) k/uL APTT (22.0-30.0) sec POC Glucose (mg/dL) (75-99) mg/dL Troponin I (0.000-0.034) ng/mL Urine Protein (Negative) Urine Glucose (UA) (Negative) Hyaline Casts (0-2) /lpf Urine Mucus (None) /hpf Assessment and Plan Plan: Acute exacebation of congesive heart failure, patient started on IV Lasix,\ Elevated D-Dimer, computed tomography scan angiogram of the chest was not done due to elevated creatinine VQ scan completed showing low probability for PE Underlying history of CKD, patient follows with Dr. Larson. Nephrology consultation was requested Underlying history of insulin-dependent diabetes mellitus Underlying history of hypertension Underlying history of hyperlipidemia Underlying history of coronary artery disease Underlying history of gastroesophageal reflux disease At this time patient is admitted to telemetry floor Patient maintained on IV Lasix Maintained on IV heparin drip Cardiology nephrology services are following Continue to monitor kidney enzymes closely
[2021-02-20 09:53] LABS: Albumin 3.5 g/dL (3.5-5.0); Calcium 8.8 mg/dL (8.4-10.2); Potassium 4.3 mmol/L (3.5-5.1); Total Bilirubin 0.3 mg/dL (0.2-1.3); Total Protein 6.5 g/dL (6.3-8.2)
[2021-02-20 10:05] LABS: Partial Thromboplastin Time 47.7 sec (22.0-30.0); Prothrombin Time 10.5 sec (9.0-12.0)
--- NOTE | 2021-02-20 10:17 | ECHOF ---
Referral Reason:LV function MEASUREMENTS -------- HEIGHT: 152.4 cm WEIGHT: 96.2 kg BP: RVIDd: 3.2 cm (< 3.3) IVSd: 1.1 cm (0.6 - 1.1) LVIDd: 5.1 cm (3.9 - 5.3) LVPWd: 1.9 cm (0.6 - 1.1) IVSs: 1.8 cm LVIDs: 3.3 cm LVPWs: 1.8 cm LAESV Index (A-L): 49.81 ml/m Ao Diam: 3.1 cm (2.0 - 3.7) AV Cusp: 1.2 cm (1.5 - 2.6) LA Diam: 4.7 cm (2.7 - 3.8) MV EXCURSION: 21.866 mm (> 18.000) MV EF SLOPE: 107 mm/s (70 - 150) EPSS: 0.2 cm MV E Chidi: 1.12 m/s MV DecT: 143 ms MV A Chidi: 0.67 m/s MV E/A Ratio: 1.66 AV maxP.91 mmHg AV meanP.76 mmHg RAP: 5.00 mmHg RVSP: 24.48 mmHg FINDINGS -------- Sinus rhythm. This was a technically good study. The left ventricular size is normal. There is mild concentric left ventricular hypertrophy. Overa ll left ventricular systolic function is low-normal with, an EF between 50 - 55 %. The right ventricle is normal in size. LA is severely dilated >40 ml/m2 The right atrial size is normal. There is mild aortic stenosis present. Peak/mean gradient across the Aortic Valve is 14.91mmHg / 7. 76mmHg. Mild mitral regurgitation is present. Mild tricuspid regurgitation present. Right ventricular systolic pressure is normal at < 35 mmHg. Trace/mild (physiologic) pulmonic regurgitation. There is no pericardial effusion. CONCLUSIONS -------- 1. The left ventricular size is normal. 2. There is mild concentric left ventricular hypertrophy. 3. Overall left ventricular systolic function is low-normal with, an EF between 50 - 55 %. 4. The right ventricle is normal in size. 5. LA is severely dilated >40 ml/m2 6. The right atrial size is normal. 7. There is mild aortic stenosis present. 8. Peak/mean gradient across the Aortic Valve is 14.91mmHg / 7.76mmHg. 9. Mild mitral regurgitation is present. 10. Mild tricuspid regurgitation present. 11. Trace/mild (physiologic) pulmonic regurgitation. 12. There is no pericardial effusion. TRANSITIONAL STUDIES INSTRUCTOR: Meghan Robles RDCS
[2021-02-20] MEDS: hydrALAZINE HCL 25 MG TAB PO SCH ×3 (11:15→23:25)
[2021-02-20 11:55] LABS: Glucose,Whole Blood 234 mg/dL (75-99)
--- NOTE | 2021-02-20 12:47 | PN ---
PROGRESS NOTE HISTORY: Patient is seen for followup for chronic kidney disease and acute kidney injury. He was admitted with volume overload CHF exacerbation. He is currently being diuresed. Lasix was decreased to q.12 hours yesterday. Volume status has improved. Creatinine is at 3.6 from 3.7 yesterday. The patient remains on IV heparin. PHYSICAL EXAMINATION: On examination today, blood pressure is 155/60, heart rate 60 per minute. He is afebrile. Examination of the heart S1, S2. Examination of the lungs, bilateral breath sounds are heard. Abdomen is soft, nontender. Examination of lower extremities shows no significant edema. AUTO PARTS COUNTER PERSON exam grossly intact. LABS: Sodium 139, potassium 4.3, chloride 106 BUN 61, creatinine 3.67, hemoglobin 9.7 g/dL. ASSESSMENT: 1. Acute kidney injury, cardiorenal, currently stable. Lasix was decreased yesterday. I will switch to p.o. Lasix today. The patient was taking 40 mg every other day at home. He is advised to continue with twice a day dosing for about a week and then switch to daily depending on his weight and volume status. 2. Chronic kidney disease stage 4 secondary to nephrosclerosis, diabetic kidney disease and [place] exposure with recent worsening of renal function, mostly due to progression of his underlying disease. There is no evidence of obstruction noted on the ultrasound. 3. CKD mineral bone disorder, maintained on calcitriol. 4. History of coronary artery disease. PLAN: Change Lasix to p.o. and the patient can be discharged from nephrology standpoint with Lasix 40 mg b.i.d. for about one week and then daily subsequently depending on his volume status and weight. MMODL / IJN: [id number] /
--- NOTE | 2021-02-20 13:25 | P.PN ---
Subjective Progress Note Date: 02/20/21 HISTORY OF PRESENT ILLNESS: This is a 75-year-old male with a past medical history significant for diabetes, hypertension, hyperlipidemia, nicotine dependence, chronic kidney disease, coronary artery disease with previous stenting, and peripheral vascular disease with previous stenting. Patient follows in the office with Dr. Arevalo. We have been asked to see the patient in consultation for congestive heart failure. Patient examined at the bedside. Patient states he has been feeling short of breath for the past few days. He also noticed some increased lower extremity edema. Patient denies any chest pain or pressure. Patient states he has been compliant with his medications. He denies any increased salt intake. The patient states he does not weigh himself at home. The patient was started on IV lasix in the emergency room. He reports improvement in his symptoms today. EKG reveals sinus mechanism with ST depression in inferolateral leads, similar to EKG in 2019, however ST depression in lateral leads more pronounced on current EKG Chest xray correlate for pulmonary venous hypertension and interstitial edema VQ scan: Low probability for PE Laboratory data: WBC 5.8. Hemoglobin 9.8. Platelet count 228. Sodium 142. Potassium 4.3. BUN 57. Creatinine 3.71. Troponin 0.133. 0.316. 0.368. 0.207. Current home cardiac medications include hydralazine 100 mg in the morning, 75 mg in the afternoon and 75 mg at night, Lasix 40 mg daily, amlodipine 5 mg twice a day, Imdur 30 mg twice a day, Plavix 75 mg daily, carvedilol 25 mg twice a day, Lipitor 40 mg daily, and aspirin 81 mg daily Most recent echocardiogram obtained in November 2020 revealed ejection fraction 55-60%, moderate mitral regurgitation, [id number] aortic regurgitation, mild tricuspid regurgitation. Cardiac catheterization history: 2001 with PCI to the RCA 02/20/2021 Patient examined this morning at the bedside. Patient denies chest pain or pressure. He denies shortness of breath. He has been transitioned to oral Lasix per nephrology. Echocardiogram completed revealed ejection fraction 50- 55%, mild aortic stenosis, mild mitral regurgitation, and mild tricuspid regurgitation. He remains on IV heparin. PHYSICAL EXAM: VITAL SIGNS: Reviewed. GENERAL: Well-developed in no acute distress. HEENT: Head is normocephalic. Pupils are equal, round. Sclerae anicteric. Mucous membranes of the mouth are moist. Neck supple. No JVD or thyromegaly LUNGS: Respirations even and unlabored. Lungs diminished to auscultation bilaterally. HEART: Regular rate and rhythm. S1 and S2 heard. Systolic murmur noted. ABDOMEN: Soft. Nondistended. Nontender. EXTREMITIES: Normal range of motion. No clubbing or cyanosis. Peripheral pulses intact. Trace bilateral lower extremity edema NEUROLOGIC: Awake and alert. Oriented x 3. ASSESSMENT: Acute exacerbation of chronic diastolic congestive heart failure Abnormal troponins, possible non-stemi Acute on chronic kidney disease Coronary artery disease with PCI to RCA Peripheral vascular disease with previous stenting to left SFA Hypertension Hyperlipidemia Nicotine dependence PLAN: Nephrology following. Patient transitioned to oral Lasix. Accurate I & O Daily weights Monitor kidney function Discontinue IV heparin Patient is currently stable from a cardiac perspective Nurse practitioner note has been reviewed by physician. Signing provider agrees with the documented findings, assessment, and plan of care. Objective - Vital Signs Vital signs: Vital Signs Temp 98.3 F 02/20/21 08:00 Pulse 64 02/20/21 12:00 Resp 18 02/20/21 03:04 BP 172/70 02/20/21 12:00 Pulse Ox 98 02/20/21 12:00 Intake & Output 02/19/21 02/20/21 02/20/21 18:59 06:59 18:59 Intake Total 1277.155 480 631.196 Output Total 1525 350 Balance -247.845 130 631.196 Weight 95.5 kg Intake: IV 20 Invasive Line 1 20 Intake, IV Titration 57.155 171.196 Amount Heparin Sod,Pork in 0.45% 57.155 171.196 NaCl 25,000 unit In 0.45 % NaCl 1 250ml.bag @ 10. 35 UNITS/KG/HR 9.998 mls/ hr IV .Q24H [facility] Rx#: [id number] Oral 1200 480 460 Output: Urine 1525 350 Other: Voiding Method Urinal - Labs CBC & Chem 7: 02/20/21 08:39 02/20/21 08:39 Labs: Abnormal Lab Results - Last 24 Hours (Table) 02/19/21 02/19/21 02/19/21 Range/Units 16:15 16:42 18:03 RBC (4.30-5.90) m/uL Hgb (13.0-17.5) gm/dL Hct (39.0-53.0) % APTT 39.5 H (22.0-30.0) sec BUN (9-20) mg/dL Creatinine (0.66-1.25) mg/dL Glucose (74-99) mg/dL POC Glucose (mg/dL) 249 H (75-99) mg/dL Urine Protein 2+ H (Negative) Urine Glucose (UA) 3+ H (Negative) Hyaline Casts 4 H (0-2) /lpf Urine Mucus Rare H (None) /hpf 02/19/21 02/20/21 02/20/21 Range/Units 20:38 00:09 05:53 RBC (4.30-5.90) m/uL Hgb (13.0-17.5) gm/dL Hct (39.0-53.0) % APTT 47.7 H (22.0-30.0) sec BUN (9-20) mg/dL Creatinine (0.66-1.25) mg/dL Glucose (74-99) mg/dL POC Glucose (mg/dL) 246 H 122 H (75-99) mg/dL Urine Protein (Negative) Urine Glucose (UA) (Negative) Hyaline Casts (0-2) /lpf Urine Mucus (None) /hpf 02/20/21 02/20/21 02/20/21 Range/Units 08:39 08:39 08:39 RBC 3.12 L (4.30-5.90) m/uL Hgb 9.7 L (13.0-17.5) gm/dL Hct 29.6 L (39.0-53.0) % APTT 47.7 H (22.0-30.0) sec BUN 61 H (9-20) mg/dL Creatinine 3.67 H (0.66-1.25) mg/dL Glucose 163 H (74-99) mg/dL POC Glucose (mg/dL) (75-99) mg/dL Urine Protein (Negative) Urine Glucose (UA) (Negative) Hyaline Casts (0-2) /lpf Urine Mucus (None) /hpf 02/20/21 Range/Units 11:50 RBC (4.30-5.90) m/uL Hgb (13.0-17.5) gm/dL Hct (39.0-53.0) % APTT (22.0-30.0) sec BUN (9-20) mg/dL Creatinine (0.66-1.25) mg/dL Glucose (74-99) mg/dL POC Glucose (mg/dL) 234 H (75-99) mg/dL Urine Protein (Negative) Urine Glucose (UA) (Negative) Hyaline Casts (0-2) /lpf Urine Mucus (None) /hpf
[2021-02-20 16:42] LABS: Glucose,Whole Blood 168 mg/dL (75-99)
[2021-02-20] MEDS: FUROSEMIDE 40 MG TAB PO SCH (17:40)
[2021-02-20 20:24] LABS: Glucose,Whole Blood 347 mg/dL (75-99)
[2021-02-20] MEDS: INSULIN DETEMIR (LEVEMIR) 100 UNIT/ML SYR SQ SCH (21:03)
[2021-02-20] MEDS: ATORVASTATIN 40 MG TAB PO SCH (21:03)
[2021-02-21 05:57] LABS: Glucose,Whole Blood 98 mg/dL (75-99)
[2021-02-21] MEDS: INSULIN ASPART (NovoLOG) 100 UNIT/ML VIAL SQ SCH ×3 (06:32→17:43)
[2021-02-21] MEDS: ASPIRIN 81 MG PO SCH (08:46)
[2021-02-21] MEDS: FUROSEMIDE 40 MG TAB PO SCH ×2 (08:46→16:38)
[2021-02-21] MEDS: CLOPIDOGREL 75 MG TAB PO SCH (08:46)
[2021-02-21] MEDS: carvediloL 12.5 MG TAB PO SCH (08:46)
[2021-02-21] MEDS: SERTRALINE 100 MG TAB PO SCH (08:46)
[2021-02-21] MEDS: ISOSORBIDE MONONITRATE ER 30 MG TAB.ER.24H PO SCH (08:46)
[2021-02-21] MEDS: amLODIPine 5 MG TAB PO SCH (08:46)
[2021-02-21 11:37] LABS: Glucose,Whole Blood 251 mg/dL (75-99)
--- NOTE | 2021-02-21 11:42 | PN ---
PROGRESS NOTE Patient is seen for followup for chronic kidney disease. He was admitted to the hospital with volume overload and has been diuresed. Lasix was changed to p.o. EXAMINATION: Today, patient is comfortable. Blood pressure is 165/56, heart rate 71 per minute. He is afebrile. Examination of the heart S1, S2. Examination of the lungs, bilateral breath sounds are heard. Abdomen is soft, nontender. Examination of lower extremities shows no evidence of edema. GOVERNMENT RELATIONS MANAGER exam is grossly intact. LABS: Labs are not available from today. Creatinine was 3.67 yesterday. ASSESSMENT: 1. Chronic kidney disease NKF stage IV with recent progression of kidney disease and plans for PD down the road. We will need to reschedule the appointment with Dr. Peralta for evaluation for PD catheter. 2. Volume overload, currently improved. 3. Acute kidney injury, cardiorenal. Repeat labs pending from today. 4. History of [place] exposure. 5. CKD mineral bone disorder, maintained on calcitriol. 6. Coronary artery disease. PLAN: The patient is stable for discharge from nephrology standpoint. Follow up as outpatient in 1-2 weeks. Maintain Lasix 40 b.i.d. for about 5-6 days and then switch to 40 mg daily. Patient was initially taking 40 mg every other day. MMODL / IJN: [id number] /
[2021-02-21] MEDS: hydrALAZINE HCL 25 MG TAB PO SCH ×2 (12:10→16:38)
[2021-02-21] MEDS ORDERED: SODIUM FERRIC GLUCONAT-SUCROSE 125 MG in SODIUM CHLORIDE 0.9% 100 ML IVPB ONE (12:30)
[2021-02-21 12:31] LABS: Basophils % (A) 0 %; Eosinophils # (A) 0.2 k/uL (0-0.7); Eosinophils % (A) 3 %; HCT 29.1 % (39.0-53.0); HGB 9.9 gm/dL (13.0-17.5); Lymphocytes # (A) 0.7 k/uL (1.0-4.8); Lymphocytes % (A) 10 %; MCH 31.3 pg (25.0-35.0); MCHC 33.9 g/dL (31.0-37.0); MCV 92.5 fL (80.0-100.0); Mean Platelet Volume 7.9; Monocytes # (A) 0.7 k/uL (0-1.0); Monocytes % (A) 10 %; Neutrophils # (A) 5.1 k/uL (1.3-7.7); Neutrophils % (A) 73 %; Platelet Count 236 k/uL (150-450); RBC 3.14 m/uL (4.30-5.90); WBC 6.9 k/uL (3.8-10.6)
[2021-02-21 13:05] LABS: Albumin 3.6 g/dL (3.5-5.0); Calcium 8.7 mg/dL (8.4-10.2); Potassium 4.2 mmol/L (3.5-5.1); Total Bilirubin 0.2 mg/dL (0.2-1.3); Total Protein 6.5 g/dL (6.3-8.2)
[2021-02-21 13:35] VITALS: RESP 18
--- NOTE | 2021-02-21 14:53 | P.PN ---
Subjective Progress Note Date: 02/21/21 Og Martines, is a 75-year-old male who presented to [facility] emergency room with a chief complaint of worsening shortness of breath He was evaluated in the emergency room vital examination on presentation revealed a temperature of 97.3 pulse 65 respiration 18 blood pressure 159/68 pulse ox 98% on room air Laboratory data reveals a white blood count of 6.8 hemoglobin 9.8 platelet count 202 d-dimer 0.88 sodium 138 potassium 4.7 chloride 109 BUN 59 creatinine 3.5 troponin level 0.133 BNP level 5310 coronavirus PCR was negative Testing in the emergency room revealed chest x-ray done in the emergency room revealed pulmonary venous hypertension and interstitial edema, EKG revealed nor mal sinus rhythm with ST and T-wave abnormalities in the inferior and lateral leads Patient was admitted to medical floor for further evaluation and treatment. Cardiology consultation and nephrology consultation were requested Past medical history is significant for history of hypertension, history of hyperlipidemia, history of chronic kidney disease stage IV, history of insulin- dependent diabetes mellitus, history of coronary artery disease, history of congestive heart failure, history of Gastroesophageal reflux disease On review of systems Patient was seen and examined on the medical floor, he is alert and oriented x 3 in no distress, he is complaining of shortness of breath otherwise he denies any complaints there is no fever or chills no headache or dizziness no chest pain, no palpitation no cough no nausea or vomiting no abdominal pain no diarrhea no blood in the stools no burning with urination no frequency or urgency and no hematuria, there is no weakness or numbness in any of the extremities no change in vision speech or gait. On 02/19/2021 patient's alert and oriented 3. Patient remains on IV Lasix and heparin drip. At this time patient reports improvement with shortness of breath. Patient denies chest pain. Patient denies nausea vomiting or diarrhea. Patient denies any urinary burning or frequency. Nephrology cardiology services are following On 02/20/2021 patient's alert and oriented 3. Patient reports significant improvement. Awaiting lab work for kidney function. Patient maintained on heparin drip and IV Lasix. Patient currently on 40 mg every 12 hours bladder ultrasound negative. At this time patient denies chest pain or shortness of breath. Patient denies nausea vomiting or diarrhea. Patient denies any urinary burning or frequency On 02/21/2021 patient was seen and examined on the telemetry floor he is alert and oriented 3 in no apparent distress his shortness of breath has improved significantly otherwise he denies any complaints there is no fever or chills no headache or dizziness no chest pain no cough no nausea or vomiting no abdominal pain no diarrhea no blood in the stools no burning with urination no frequency or urgency and no hematuria. Patient was cleared by nephrology for discharge, we are awaiting further recommendation from cardiology Objective - Vital Signs Vital signs: Vital Signs Temp 98.7 F 02/21/21 08:00 Pulse 71 02/21/21 08:00 Resp 17 02/21/21 08:00 BP 165/56 02/21/21 08:00 Pulse Ox 94 L 02/21/21 08:16 Intake & Output 02/20/21 02/21/21 02/21/21 18:59 06:59 18:59 Intake Total 749.196 540 Balance 749.196 540 Weight 95 kg Intake: Intake, IV Titration 171.196 Amount Heparin Sod,Pork in 0.45% 171.196 NaCl 25,000 unit In 0.45 % NaCl 1 250ml.bag @ 10. 35 UNITS/KG/HR 9.998 mls/ hr IV .Q24H [facility] Rx#: [id number] Oral 578 540 - Exam In general patient is alert and oriented x 3 in no distress HEENT head normocephalic and atraumatic Neck is supple no JVD no goiter no lymphadenopathy no carotid bruit Chest examination reveals a scattered crackles bilaterally no wheezing Cardiac exam reveals regular heart sounds S1 and S2 no gallops no murmurs Abdomen is soft nontender no organomegaly with normal bowel sounds Extremity exam reveals 1+ edema no cyanosis or clubbing Neurological examination reveals no gross focal deficits - Labs CBC & Chem 7: 02/21/21 11:57 02/21/21 11:57 Labs: Abnormal Lab Results - Last 24 Hours (Table) 02/20/21 02/20/21 02/20/21 Range/Units 08:39 08:39 08:39 RBC 3.12 L (4.30-5.90) m/uL Hgb 9.7 L (13.0-17.5) gm/dL Hct 29.6 L (39.0-53.0) % APTT 47.7 H (22.0-30.0) sec BUN 61 H (9-20) mg/dL Creatinine 3.67 H (0.66-1.25) mg/dL Glucose 163 H (74-99) mg/dL POC Glucose (mg/dL) (75-99) mg/dL 02/20/21 02/20/21 02/20/21 Range/Units 11:50 16:41 20:22 RBC (4.30-5.90) m/uL Hgb (13.0-17.5) gm/dL Hct (39.0-53.0) % APTT (22.0-30.0) sec BUN (9-20) mg/dL Creatinine (0.66-1.25) mg/dL Glucose (74-99) mg/dL POC Glucose (mg/dL) 234 H 168 H 347 H (75-99) mg/dL Assessment and Plan Plan: Acute exacebation of congesive heart failure, patient started on IV Lasix,\ Elevated D-Dimer, computed tomography scan angiogram of the chest was not done due to elevated creatinine VQ scan completed showing low probability for PE Underlying history of CKD, patient follows with Dr. Larson. Nephrology consultation was requested Underlying history of insulin-dependent diabetes mellitus Underlying history of hypertension Underlying history of hyperlipidemia Underlying history of coronary artery disease Underlying history of gastroesophageal reflux disease At this time patient is admitted to telemetry floor Patient maintained on IV Lasix Maintained on IV heparin drip Cardiology nephrology services are following Continue to monitor kidney enzymes closely
[2021-02-21 16:40] LABS: Glucose,Whole Blood 200 mg/dL (75-99)
[2021-02-21 17:43] VITALS: BP 175/72; PULSE 66; TEMP 98.3
== END 2021-02-21 19:07 | disposition home or self-care (01) | DRG 291 ==
LOC: EC 11:55 → 3SCARD 13:43
PROVIDERS: ADMIT Internal Medicine; ATTEND Internal Medicine
DX: I13.0 Hypertensive heart and chronic kidney disease with heart failure and stage 1 through stage 4 chronic kidney disease, or unspecified chronic kidney disease (principal); I50.33 Acute on chronic diastolic (congestive) heart failure; N18.4 Chronic kidney disease, stage 4 (severe); N17.9 Acute kidney failure, unspecified; E11.22 Type 2 diabetes mellitus with diabetic chronic kidney disease; E11.319 Type 2 diabetes mellitus with unspecified diabetic retinopathy without macular edema; E11.51 Type 2 diabetes mellitus with diabetic peripheral angiopathy without gangrene; E78.5 Hyperlipidemia, unspecified; F17.200 Nicotine dependence, unspecified, uncomplicated; F32.9 Major depressive disorder, single episode, unspecified; I25.10 Atherosclerotic heart disease of native coronary artery without angina pectoris; K21.9 Gastro-esophageal reflux disease without esophagitis; M89.9 Disorder of bone, unspecified; Z20.822 Contact with and (suspected) exposure to COVID-19; Z79.02 Long term (current) use of antithrombotics/antiplatelets; Z79.4 Long term (current) use of insulin; Z79.82 Long term (current) use of aspirin; Z79.899 Other long term (current) drug therapy; Z82.49 Family history of ischemic heart disease and other diseases of the circulatory system; Z83.3 Family history of diabetes mellitus; Z86.73 Personal history of transient ischemic attack (TIA), and cerebral infarction without residual deficits; Z95.5 Presence of coronary angioplasty implant and graft
CPT/HCPCS: 36415; 71046; 76770; 78582; 80053; 81001; 82272; 83605; 83735; 83880; 84484; 85025; 85379; 85610; 85730; 87324; 87635; 93005; 93306; 94760; 99285

== ENCOUNTER 2021-03-02 11:50 | Emergency (ER) | payer MEDICARE ==
--- NOTE | 2021-03-02 15:22 | ED ---
General Adult HPI - General Chief complaint: Recheck/Abnormal Lab/Rx Stated complaint: COVID + wants infusion Time Seen by Provider: 03/02/21 15:13 Source: patient, RN notes reviewed Mode of arrival: ambulatory Limitations: no limitations - History of Present Illness Initial comments: 75-year-old male with a complicated past medical history presents to the emergency room for a chief complaint of needing antibodies. Patient tested positive for [place] virus on Tuesday. His doctor called him today to come in and get antibodies. Patient states he has had a cough with phlegm. Denies fevers. He was started on antibiotics by primary care. He denies any shortness of breath or chest pain.Patient has no other complaints at this time including shortness of breath, chest pain, abdominal pain, nausea or vomiting, headache, or visual changes. - Related Data Home Medications Medication Instructions Recorded Confirmed Isosorbide Mononitrate [Imdur] 30 mg PO BID 01/09/14 02/18/21 Sertraline [Zoloft] 100 mg PO DAILY 01/09/14 02/18/21 Aspirin EC [Ecotrin Low Dose] 81 mg PO DAILY 11/08/15 02/18/21 amLODIPine [Norvasc] 5 mg PO BID 11/08/15 02/18/21 Carvedilol [Coreg] 25 mg PO BID 03/30/16 02/18/21 Ergocalciferol [Vitamin D2 50,000 unit PO SUWE 07/06/18 02/18/21 (DRISDOL)] Insulin Glargine [Lantus Vial] 55 unit SQ HS 07/06/18 02/18/21 Atorvastatin [Lipitor] 40 mg PO HS 02/18/21 02/18/21 INSULIN ASPART (NovoLOG) [NovoLOG See Protocol SQ AC-TID PRN 02/18/21 02/18/21 (formulary)] calcitrioL [Calcitriol] 0.5 mcg PO DIRECTED 02/18/21 02/18/21 hydrALAZINE HCL [Apresoline] 75 mg PO BID@1630,2300 02/18/21 02/18/21 hydrALAZINE HCL [Apresoline] 100 mg PO DAILY@1030 02/18/21 02/18/21 Previous Rx's Medication Instructions Recorded Clopidogrel [Plavix] 75 mg PO DAILY tab 11/11/15 Furosemide [Lasix] 40 mg PO BID@0900,1600 tab 02/21/21 Allergies Allergy/AdvReac Type Severity Reaction Status Date / Time simvastatin AdvReac Diarrhea Verified 03/02/21 14:37 Review of Systems ROS Statement: Those systems with pertinent positive or pertinent negative responses have been documented in the HPI. ROS Other: All systems not noted in ROS Statement are negative. Past Medical History Past Medical History: Coronary Artery Disease (CAD), Heart Failure, CVA/TIA, Diabetes Mellitus, GERD/Reflux, Hyperlipidemia, Hypertension Additional Past Medical History / Comment(s): labyrinthitis, 10/2015 - TIA no effects from, neuropathy and poor circulation [place] legs and feet, boot on left foot from injury 03/2016, states had high potassium 03/2016 History of Any Multi-Drug Resistant Organisms: None Reported Past Surgical History: Appendectomy, Heart Catheterization With Stent Additional Past Surgical History / Comment(s): LASER DIABETIC RETINOPATHY EYE SURGERY, one cardiac stent, aortogram, RIGHT FEM POP Past Anesthesia/Blood Transfusion Reactions: No Reported Reaction Additional Past Anesthesia/Blood Transfusion Reaction / Comment(s): . Date of Last Stent Placement:: 2001 Past Psychological History: Depression Smoking Status: Never smoker Past Alcohol Use History: None Reported Past Drug Use History: None Reported - Past Family History Father Family Medical History: Hypertension Additional Family Medical History / Comment(s): ALCOHOLIC, DID NOT KNOW DAD VERY WELL. Mother Family Medical History: Diabetes Mellitus Additional Family Medical History / Comment(s): Pt states mother had "heart trouble" Brother(s) Family Medical History: Diabetes Mellitus General Exam Limitations: no limitations General appearance: alert, in no apparent distress Head exam: Present: atraumatic Eye exam: Present: normal appearance, PERRL, EOMI. Absent: scleral icterus, conjunctival injection ENT exam: Present: normal exam, mucous membranes moist Neck exam: Present: normal inspection, full ROM. Absent: tenderness Respiratory exam: Present: normal lung sounds bilaterally. Absent: respiratory distress, wheezes Cardiovascular Exam: Present: regular rate, normal heart sounds GI/Abdominal exam: Present: soft, normal bowel sounds. Absent: distended, tenderness Course Vital Signs 03/02/21 14:37 Temperature 97.9 F Pulse Rate 68 Respiratory 20 Rate Blood Pressure 125/59 O2 Sat by Pulse 99 Oximetry Medical Decision Making - Medical Decision Making Vitals are stable. Patient is well-appearing. No respiratory distress. Patient was given antibody infusion. Patient can be discharged to follow up with primary care. He will return here for any worsening symptoms. Disposition Clinical Impression: COVID Disposition: HOME SELF-CARE Condition: Good Instructions (If sedation given, give patient instructions): Coronavirus Disease 2019 (COVID-19) Additional Instructions: Please follow up with your doctor in 1-2 days. Take vitamins C, D, zinc. Return to the ER if you develop worsening symptoms such as worsening shortness of breath. Is patient prescribed a controlled substance at d/c from ED?: No Referrals: Veronica Guardado MD [Primary Care Provider] - 1-2 days Time of Disposition: 15:21
[2021-03-02] MEDS ORDERED: SODIUM CHLORIDE 0.9% 50 ML IVPB ONE (15:30)
[2021-03-02] MEDS ORDERED: CASIRIVIMAB (REGN10933) (EUA) 600 MG, IMDEVIMAB (REGN10987) (EUA) 600 MG in SODIUM CHLO... IVPB ONE (15:30)
[2021-03-02 15:38] VITALS: PULSE 50
[2021-03-02 16:24] VITALS: BP 160/61; RESP 16; TEMP 99.3
== END 2021-03-02 17:04 | disposition home or self-care (01) ==
LOC: EC 11:50
DX: U07.1 COVID-19 (principal); I25.10 Atherosclerotic heart disease of native coronary artery without angina pectoris; I11.0 Hypertensive heart disease with heart failure; I50.9 Heart failure, unspecified; E78.5 Hyperlipidemia, unspecified; E11.9 Type 2 diabetes mellitus without complications; K21.9 Gastro-esophageal reflux disease without esophagitis; F32.9 Major depressive disorder, single episode, unspecified; Z79.82 Long term (current) use of aspirin; Z79.4 Long term (current) use of insulin; Z79.02 Long term (current) use of antithrombotics/antiplatelets; Z86.73 Personal history of transient ischemic attack (TIA), and cerebral infarction without residual deficits; Z90.49 Acquired absence of other specified parts of digestive tract; Z95.5 Presence of coronary angioplasty implant and graft
CPT/HCPCS: 99283; 96365; Q0243

== ENCOUNTER → 2022-01-01 | Outpatient (CLI) | payer MEDICARE ==
--- NOTE | 2022-01-01 15:39 | XR ---
EXAMINATION TYPE: XR Hip Bilateral Complete DATE OF EXAM: 01/01/2022 CLINICAL HISTORY: pain TECHNIQUE: AP and frogleg views of the bilateral hips are obtained. COMPARISON: None. FINDINGS: There is no acute fracture/dislocation evident. The joint spaces appear to be mildly narro wed bilaterally. Mild spur formation. Vascular calcifications noted. The overlying soft tissue appear s unremarkable. IMPRESSION: 1. There is no acute fracture or dislocation. ICD 10 NO FRACTURE, INITIAL EVALUATION
== END | disposition home or self-care (01) ==
LOC: RADXRMAIN 14:27
PROVIDERS: ATTEND Internal Medicine
DX: M25.551 Pain in right hip (principal)
CPT/HCPCS: 73521

== ENCOUNTER 2022-09-15 10:56 | Day surgery (SDC) | payer MEDICARE ==
[~2022-09-15 10:56] MED LIST changes: +ALPRAZolam 0.5 MG TAB PO PRN; +ASPIRIN 325 MG TAB PO PRN; -ASPIRIN 325 MG TAB PO STA; +HEPARIN SODIUM,PORCINE 10,000 UNIT in SODIUM CHLORIDE 0.9% 1,000 ML IRRIGATION PRN; +HEPARIN SODIUM,PORCINE 2,500 UNIT in SODIUM CHLORIDE 0.9% 250 ML IRRIGATION PRN; +ZOLPIDEM 5 MG TAB PO PRN
[2022-09-15] MEDS ORDERED: ASPIRIN 81 MG ONE (11:16)
[2022-09-15 11:17] LABS: Glucose,Whole Blood 168 mg/dL (70-110)
[2022-09-15] MEDS ORDERED: MIDAZOLAM 2 MG/2 ML VIAL IVP ONE (12:45)
[2022-09-15] MEDS ORDERED: LIDOCAINE 1% INJ 10MG/ML (5 ML VIAL-PF) SQ ONE (12:45)
[2022-09-15] MEDS: HEPARIN SODIUM 1,000 UN/ML (10ML VL) IVP ONE ×2 (13:02→13:42)
[2022-09-15] MEDS ORDERED: fentaNYL (PF) 50 MCG/ML 2 ML AMP IVP ONE (13:23)
[2022-09-15] MEDS ORDERED: niCARdipine Syringe (1,000 mcg/10 mL) INTRAARTER ONE (13:45)
[2022-09-15] MEDS ORDERED: NITROGLYCERIN 1000MCG/10ML SYRINGE INTRAARTER ONE (13:45)
[2022-09-15] MEDS ORDERED: NALOXONE 0.4 MG/ML 1 ML VIAL IVP PRN (13:52)
[2022-09-15] MEDS ORDERED: CLOPIDOGREL 75 MG TAB PO ONE (13:57)
--- NOTE | 2022-09-15 13:58 | P.PCN ---
Date of Procedure: 09/15/22 Operative Findings: PERCUTANEOUS PERIPHERAL INTERVENTION Performing physician Horacio Porter M.D. Procedure performed 1. Successful balloon angioplasty of the left popliteal and stenting of the left SFA with adjunctive use off atherectomy and intravascular imaging 2. Left lower extremity angiogram and right common femoral artery angiogram 3. Ultrasound-guided access of the right common femoral artery Indication Left lower extremity intermittent claudication in this 77-year-old gentleman who underwent an angiogram using CO2 and that revealed critical left SFA Approach Right common femoral artery Complications None Level of sedation Moderate with a sedation time of 70 minutes Procedure description After obtaining an informed consent the patient was brought to the cardiac labourers. The right common femoral artery was cannulated using puncture technique under ultrasound guidance, the micropuncture wire passed easily then I placed a 6-Serbian 70 cm sheath in the right common femoral artery. At that point anticoagulation was initiated using heparin with continuous ACT monitoring. After that I did go up and over the left SFA using 035 stiff Glidewire with a backup support of 5-Serbian rim catheter. After that the sheath was advanced over the wire and the catheter to the left common femoral artery. At that point I did left popliteal and left SFA angiogram and that identified a 2 critical lesions. I did wire the left popliteal and left is using all 4 wire and I did after that intravascular ultrasound which showed extremely and heavily calcified vessels. Atherectomy was performed using the orbital atherectomy device. After that balloon angioplasty was performed using 5 mm chocolate balloon. At that point I decided to do balloon angioplasty of the mid and distal left SFA and left popliteal and stenting of the very proximal SFA on the left side because of flow-limiting dissection. Balloon angioplasty was performed using a drug-coated balloon with the following angiogram showing good angiographic results and s tenting was performed using the silver PTX the coated stent where the stent was positioned under fluoroscopy guidance and deployed under fluoroscopy guidance. I deployed 7.0 x 140 mm stent. Posterization was performed using 6 [place] balloon with final angiogram showing excellent angiographic results. Subsequently admitted exchange my long sheath into short sheath over 035 wire before I did selective right common femoral artery angiogram. The procedure was completed with no complication. Postprocedure management 1. Dual antiplatelet therapy 2. Aggressive cholesterol control 3. Risk factors modification 4. Follow-up with the patient
[2022-09-15] MEDS ORDERED: SODIUM CHLORIDE 0.9% 1,000 ML in EMPTY BAG 1 BAG IV SCH (14:00)
[2022-09-15] MEDS ORDERED: SODIUM CHLORIDE 0.9% 1,000 ML IV ONE (14:05)
[2022-09-15] MEDS ORDERED: IOPAMIDOL-370 100ML BTL INJ ONE (14:05)
--- NOTE | 2022-09-15 14:09 | IR ---
EXAMINATION TYPE: IR shrimp boat captain femoral popliteal DATE OF EXAM: 09/15/2022 COMPARISON: NONE HISTORY: Fluoroscopy time. Fluoroscopy was provided to the referring clinician.
[2022-09-15] MEDS: CALCIUM ACETATE 667 MG TAB PO SCH (18:25)
[2022-09-15] MEDS: hydrALAZINE HCL 50 MG TAB PO SCH ×2 (18:26→20:51)
[2022-09-15] MEDS: carvediloL 12.5 MG TAB PO SCH (18:26)
[2022-09-15 19:55] LABS: Glucose,Whole Blood 228 mg/dL (70-110)
[2022-09-15] MEDS: ISOSORBIDE MONONITRATE ER 30 MG TAB.ER.24H PO SCH (20:51)
[2022-09-15] MEDS ORDERED: amLODIPine 2.5 MG TAB PO SCH (21:00)
[2022-09-15] MEDS ORDERED: ASPIRIN 81 MG PO SCH (21:00)
[2022-09-15] MEDS ORDERED: INSULIN DETEMIR (LEVEMIR) 100 UNIT/ML SYR SQ SCH (21:00)
[2022-09-15] MEDS ORDERED: DIALYSIS (PERIT 2.5%) 2,000 ML 50 G/2,000 ML BAG INTRAPERIT ONE (22:00)
[2022-09-16] MEDS ORDERED: DIALYSIS (PERIT 1.5%) 2,000 ML 30 G/2,000 ML BAG INTRAPERIT SCH (04:00)
[2022-09-16 05:21] VITALS: TEMP 98
[2022-09-16] MEDS: CALCIUM ACETATE 667 MG TAB PO SCH (06:01)
[2022-09-16] MEDS: carvediloL 12.5 MG TAB PO SCH (06:01)
[2022-09-16 06:09] LABS: Glucose,Whole Blood 141 mg/dL (70-110)
[2022-09-16] MEDS: hydrALAZINE HCL 50 MG TAB PO SCH (08:13)
[2022-09-16] MEDS: ISOSORBIDE MONONITRATE ER 30 MG TAB.ER.24H PO SCH (08:14)
[2022-09-16 08:21] VITALS: BP 157/76; PULSE 71; RESP 16
--- NOTE | 2022-09-16 08:35 | P.DS ---
Providers Attending physician: Horacio Porter Consults: 09/15/22 15:50 Consult Physician Stat Consulting Provider: Sylvia Larson Consult Reason/Comments: DIALYSIS PT Do you want consulting provider notified?: Already Contacted Primary care physician: Veronica [facility] Course: The patient is a pleasant 77-year-old gentleman with known history of CAD and prior angioplasty who was diagnosed recently with severe symptomatic lower ex tremities PAD with angiogram was performed and showed critical bilateral SFA. He underwent yesterday successful BAIT MAKER of the left SFA with a good angiographic results from right groin approach. He was seen this morning. He is asymptomatic and hemodynamically stable. The right groin is soft and nontender with no bruises. The left foot is warm. The patient is going to be discharged home on dual antiplatelet therapy and he needs to undergo a BAIT MAKER of the right SFA in the next few weeks. Plan - Discharge Summary Discharge Rx Participant: No New Discharge Prescriptions: Continue Isosorbide Mononitrate [Imdur] 30 mg PO BID Sertraline [Zoloft] 100 mg PO DAILY amLODIPine [Norvasc] 5 mg PO DAILY Aspirin EC [Ecotrin Low Dose] 81 mg PO HS Clopidogrel [Plavix] 75 mg PO DAILY tab carvediloL [Coreg] 25 mg PO BID Ergocalciferol [Vitamin D2 (DRISDOL)] 50,000 unit PO SUWE Insulin Glargine [Lantus Vial] 35 unit SQ HS Atorvastatin [Lipitor] 40 mg PO DAILY hydrALAZINE HCL 50 mg PO TID Calcium Acetate [PhosLo] 1,334 mg PO TID-W/MEALS amLODIPine [Norvasc] 2.5 mg PO HS lisinopriL [Zestril] 5 mg PO DAILY B Complex W-C No.20/Folic Acid [Renal Caps Softgel] 1 mg PO DAILY INSULIN ASPART (NovoLOG) [NovoLOG (formulary)] 0 unit SQ ACHS Discharge Medication List Isosorbide Mononitrate [Imdur] 30 mg PO BID 01/09/14 [History] Sertraline [Zoloft] 100 mg PO DAILY 01/09/14 [History] Aspirin EC [Ecotrin Low Dose] 81 mg PO HS 11/08/15 [History] amLODIPine [Norvasc] 5 mg PO DAILY 11/08/15 [History] Clopidogrel [Plavix] 75 mg PO DAILY tab 11/11/15 [Rx] carvediloL [Coreg] 25 mg PO BID 03/30/16 [History] Ergocalciferol [Vitamin D2 (DRISDOL)] 50,000 unit PO SUWE 07/06/18 [History] Insulin Glargine [Lantus Vial] 35 unit SQ HS 07/06/18 [History] Atorvastatin [Lipitor] 40 mg PO DAILY 02/18/21 [History] B Complex W-C No.20/Folic Acid [Renal Caps Softgel] 1 mg PO DAILY 08/17/22 [History] Calcium Acetate [PhosLo] 1,334 mg PO TID-W/MEALS 08/17/22 [History] amLODIPine [Norvasc] 2.5 mg PO HS 08/17/22 [History] hydrALAZINE HCL 50 mg PO TID 08/17/22 [History] lisinopriL [Zestril] 5 mg PO DAILY 08/17/22 [History] INSULIN ASPART (NovoLOG) [NovoLOG (formulary)] 0 unit SQ ACHS 09/14/22 [History] Follow up Appointment(s)/Referral(s): Brianna Arevalo MD [STAFF PHYSICIAN] - 1 Week (APPOINTMENT MADE ON September @ 1:30PM) Patient Instructions/Handouts: Moderate Sedation (DC), Cardiac Rehabilitation (ED), Coronary Intravascular Stent Placement (DC), After Radial Heart Catheterization (GEN) Activity/Diet/Wound Care/Special Instructions: *NO LIFTING, PUSHING, OR PULLING ANYTHING OVER 5P OUNDS FOR 5 DAYS *NO DRIVING FOR 3 DAYS *YOU CAN REMOVE YOUR DRESSING AND SHOWER TOMORROW BUT DO NOT SUBMERSE YOUR PUNCTURE SITE IN WATER FOR A FEW DAYS TO PREVENT INFECTION - SO NO TUB BATHS, POOLS, HOT TUBS, DISHES...ETC *ANY SIGNS OF BLEEDING (HARDNESS, SWELLING, OR EXCESSIVE BRUISING) HOLD DIRECT PRESSURE ON YOUR PUNCTURE SITE AND COME TO THE NEAREST EMERGENCY ROOM TO GET YOUR PUNCTURE SITE LOOKED AT - DO NOT DRIVE YOURSELF! EITHER CALL EMS OR HAVE SOMEONE DRIVE YOU!
[2022-09-16] MEDS ORDERED: CLOPIDOGREL 75 MG TAB PO SCH (09:00)
[2022-09-16] MEDS ORDERED: SERTRALINE 100 MG TAB PO SCH (09:00)
[2022-09-16] MEDS ORDERED: ATORVASTATIN 40 MG TAB PO SCH (09:00)
[2022-09-16] MEDS ORDERED: FOLIC ACID-VIT B COMPLEX-VIT C 1 CAP PO SCH (09:00)
[2022-09-16] MEDS ORDERED: lisinopriL 5 MG TAB PO SCH (09:00)
[2022-09-16] MEDS ORDERED: amLODIPine 5 MG TAB PO SCH (09:00)
[2022-09-16 09:49] LABS: Albumin 3.4 g/dL (3.5-5.0); Calcium 8.1 mg/dL (8.4-10.2); Potassium 5.2 mmol/L (3.5-5.1); Total Bilirubin 0.2 mg/dL (0.2-1.3); Total Protein 5.9 g/dL (6.3-8.2)
[2022-09-19] MEDS ORDERED: ERGOCALCIFEROL 1,250 MCG (50,000 IU) CAPSULE PO SCH (09:00)
== END 2022-09-16 09:12 | disposition home or self-care (01) ==
LOC: CATHCVL 10:56 → 3SCARD 17:04 → CATHCVL 09-16 09:12
PROVIDERS: ATTEND Internal Medicine Interventional Cardiology
DX: I70.212 Atherosclerosis of native arteries of extremities with intermittent claudication, left leg (principal); I25.10 Atherosclerotic heart disease of native coronary artery without angina pectoris; E11.52 Type 2 diabetes mellitus with diabetic peripheral angiopathy with gangrene; I10 Essential (primary) hypertension; E78.5 Hyperlipidemia, unspecified; F17.210 Nicotine dependence, cigarettes, uncomplicated; Z79.82 Long term (current) use of aspirin; Z79.02 Long term (current) use of antithrombotics/antiplatelets; Z79.4 Long term (current) use of insulin; Z79.899 Other long term (current) drug therapy
CPT/HCPCS: 37227; 37252; 80053; 99152; 99153 ×3; C1894 ×2; C1769 ×4; C1714; C1725 ×2; C1753; C1874; C2623; J2250; J2001; A4722 ×2; J3010; J1644; Q9967

== ENCOUNTER 2022-10-13 10:54 | Day surgery (SDC) | payer MEDICARE ==
[~2022-10-13 10:54] MED LIST changes: -ALPRAZolam 0.25 MG TAB PO PRN; -ALPRAZolam 0.5 MG TAB PO PRN; -ASPIRIN 325 MG TAB PO PRN; -HEPARIN SODIUM,PORCINE 10,000 UNIT in SODIUM CHLORIDE 0.9% 1,000 ML IRRIGATION PRN; -HEPARIN SODIUM,PORCINE 2,500 UNIT in SODIUM CHLORIDE 0.9% 250 ML IRRIGATION PRN; -ZOLPIDEM 5 MG TAB PO PRN
[2022-10-13 11:17] LABS: Glucose,Whole Blood 156 mg/dL (70-110)
[2022-10-13 11:21] LABS: Basophils % (A) 1 %; Eosinophils # (A) 0.4 k/uL (0-0.7); Eosinophils % (A) 5 %; HCT 36.7 % (39.0-53.0); Lymphocytes # (A) 1.4 k/uL (1.0-4.8); Lymphocytes % (A) 17 %; MCH 32.4 pg (25.0-35.0); MCHC 32.8 g/dL (31.0-37.0); MCV 98.9 fL (80.0-100.0); Monocytes # (A) 0.6 k/uL (0-1.0); Monocytes % (A) 7 %; Neutrophils # (A) 5.6 k/uL (1.3-7.7); Neutrophils % (A) 69 %; Platelet Count 220 k/uL (150-450); RBC 3.71 m/uL (4.30-5.90); RDW 13.6 % (11.5-15.5); WBC 8.1 k/uL (3.8-10.6)
[2022-10-13 11:30] LABS: African American GFR (CKD) 16 (>60 ml/min/1.73 sqM); Anion Gap 11 mmol/L; Blood Urea Nitrogen 78 mg/dL (9-20); Calcium 8.5 mg/dL (8.4-10.2); Carbon Dioxide 24 mmol/L (22-30); Chloride 103 mmol/L (98-107); Glucose 162 mg/dL (74-99); Non-African American GFR(CKD) 14 (>60 ml/min/1.73 sqM); Potassium 5.1 mmol/L (3.5-5.1); Sodium 138 mmol/L (137-145)
[2022-10-13] MEDS ORDERED: MIDAZOLAM 2 MG/2 ML VIAL IVP ONE (12:45)
[2022-10-13] MEDS ORDERED: LIDOCAINE 1% INJ 10MG/ML (20 ML MDV) SQ ONE (12:48)
[2022-10-13] MEDS: HEPARIN SODIUM 1,000 UN/ML (10ML VL) IVP ONE ×2 (12:50→13:22)
[2022-10-13] MEDS ORDERED: HEPARIN SODIUM 1,000 UN/ML (10ML VL) ONE (12:51)
[2022-10-13] MEDS ORDERED: IOPAMIDOL-250 100ML BTL INTRAARTER ONE (13:38)
[2022-10-13] MEDS ORDERED: ATROPINE SULFATE 0.1 MG/ML 10ML SYRINGE IV PRN (13:44)
[2022-10-13] MEDS ORDERED: MAG HYDROX/AL HYDROX/SIMETH 30 ML CUP PO PRN (13:44)
[2022-10-13] MEDS ORDERED: NITROGLYCERIN SL TABS 0.4 MG TAB SUBLINGUAL PRN (13:44)
[2022-10-13] MEDS ORDERED: ZOLPIDEM 5 MG TAB PO PRN (13:44)
[2022-10-13] MEDS ORDERED: RX INFO: IV CONTRAST WAS GIVEN 1 EACH MISC MISCELLANE PRN (13:44)
[2022-10-13] MEDS ORDERED: SODIUM CHLORIDE 0.9% 1,000 ML in EMPTY BAG 1 BAG IV SCH (13:45)
[2022-10-13] MEDS: hydrALAZINE HCL 50 MG TAB PO SCH ×2 (15:39→21:54)
[2022-10-13] MEDS: carvediloL 12.5 MG TAB PO SCH (15:39)
[2022-10-13] MEDS: CALCIUM ACETATE 667 MG TAB PO SCH (15:39)
[2022-10-13 16:49] LABS: Glucose,Whole Blood 160 mg/dL (70-110)
[2022-10-13 20:31] LABS: Glucose,Whole Blood 267 mg/dL (70-110)
[2022-10-13] MEDS: INSULIN ASPART (NovoLOG) 100 UNIT/ML VIAL SQ SCH (20:48)
[2022-10-13] MEDS: ISOSORBIDE MONONITRATE ER 30 MG TAB.ER.24H PO SCH (20:48)
[2022-10-13] MEDS ORDERED: amLODIPine 2.5 MG TAB PO SCH (21:00)
[2022-10-13] MEDS ORDERED: INSULIN DETEMIR (LEVEMIR) 100 UNIT/ML SYR SQ SCH (21:00)
[2022-10-13] MEDS ORDERED: ASPIRIN 81 MG PO SCH (21:00)
--- NOTE | 2022-10-13 21:14 | IR ---
EXAMINATION TYPE: IR cvc insert >=5 years DATE OF EXAM: 10/13/2022 CLINICAL HISTORY: Right leg pain. TECHNIQUE: Fluoroscopy. COMPARISON: None. FINDINGS: Fluoroscopic guidance was provided during lower extremity angiogram procedure performed by Dr. Porter. A total of 13.7 and of fluoroscopic time was utilized during the procedure and 3951 spot images was acquired. TOTAL DAP = 8.56. Please refer to procedure note for further details. IMPRESSION: As Above.
--- NOTE | 2022-10-13 22:20 | P.PCN ---
Date of Procedure: 10/13/22 Operative Findings: PERCUTANEOUS PERIPHERAL ARTERIAL INTERVENTION Performing physician Horacio Porter M.D. Procedure performed 1. Successful balloon angioplasty of the right popliteal and right SFA with an excellent angiographic results 2. Adjunctive use of intravascular ultrasound and lithotripsy balloon 3. Right lower extremity angiogram and left common femoral artery angiogram 4. Ultrasound-guided access of the left common femoral artery Indication Intermittent claudication in this 77-year-old gentleman who underwent an angiogram and that revealed critical right SFA and right popliteal Approach Left common femoral artery Complications None Level of sedation Moderate with a sedation time of 48 minutes Procedure description After obtaining an informed consent the patient was brought to the cardiac medical laboratory technical officer. The left common femoral artery was cannulated using micropuncture technique under ultrasound guidance and the micropuncture wire passed easily then I placed a 6-Dominican 70 cm sheath at the left common femoral artery. A nticoagulation was initiated using heparin with continuous ACT monitoring. The right SFA was selected using 035 stiff Glidewire with a backup support of 5- [place] rim catheter. Then I did advanced a sheath over the wire and the catheter to the proximal right common femoral artery. Right lower extremity angiogram was performed and showed critical disease involving the right popliteal [id number] and mid right SFA. Previous stents in the SFA appears to be patent. Also the angiogram revealed 2 vessels run off below the knee. Intravascular ultrasound was performed after wiring the SFA using 014 wire showed a diameter about 6 mm with extremely calcified SFA and popliteal with eccentric calcifications. I did balloon angioplasty using 6 mm lithotripsy balloon subsequently balloon angioplasty using a drug-coated balloon was performed with an excellent angiographic results and reduction of stenosis from 90% to 0%. The procedure was completed was no complication. After that I did exchange my long sheath into short sheath using 035 stiff Glidewire before I did selective left common femoral artery angiogram. The procedure was completed was no complication Postprocedure management 1. Dual antiplatelet therapy 2. Aggressive cholesterol control 3. Risk factors modification 4. Follow-up with the patient
[2022-10-13 23:24] VITALS: RESP 16
[2022-10-14] MEDS: DIALYSIS (PERIT 1.5%) 2,500 ML 37.5 G/2,500 ML BAG INTRAPERIT SCH ×2 (00:24→05:59)
[2022-10-14 06:32] LABS: Glucose,Whole Blood 130 mg/dL (70-110)
[2022-10-14] MEDS: INSULIN ASPART (NovoLOG) 100 UNIT/ML VIAL SQ SCH (06:39)
[2022-10-14] MEDS: carvediloL 12.5 MG TAB PO SCH (06:44)
[2022-10-14] MEDS: CALCIUM ACETATE 667 MG TAB PO SCH (06:44)
--- NOTE | 2022-10-14 08:13 | P.DS ---
Providers Attending physician: Horacio Porter Consults: 10/13/22 13:44 Consult Physician Routine Consulting Provider: [facility] Consult Reason/Comments: Post Interventional Patient Do you want consulting provider notified?: Already Contacted 10/13/22 15:44 Consult Physician Routine Consulting Provider: Sylvia Larson Consult Reason/Comments: CAPD Do you want consulting provider notified?: Yes Primary care physician: [facility] Course: The patient is a 77-year-old gentleman who underwent yesterday successful balloon angioplasty of the right femoral artery and right popliteal from left groin approach with an excellent angiographic results by the end and reduction of stenosis from 90% to 0% with no adding additional stents. The procedure was performed using directional atherectomy as well as balloon angioplasty using a drug-coated balloon. He was seen this morning. He is asymptomatic and he is hemodynamically stable. The left groin is soft and nontender with no bruises. He is going to be discharged home on dual antiplatelet therapy along with a statin and he is going to be seen by Dr. Arevalo in the office. Plan - Discharge Summary Discharge Rx Participant: No New Discharge Prescriptions: Continue Isosorbide Mononitrate [Imdur] 30 mg PO BID Sertraline [Zoloft] 100 mg PO DAILY amLODIPine [Norvasc] 5 mg PO DAILY Aspirin EC [Ecotrin Low Dose] 81 mg PO HS Clopidogrel [Plavix] 75 mg PO DAILY tab carvediloL [Coreg] 25 mg PO BID Ergocalciferol [Vitamin D2 (DRISDOL)] 50,000 unit PO SUWE Insulin Glargine [Lantus Vial] 35 unit SQ HS Atorvastatin [Lipitor] 40 mg PO DAILY hydrALAZINE HCL 50 mg PO TID Calcium Acetate [PhosLo] 1,334 mg PO TID-W/MEALS amLODIPine [Norvasc] 2.5 mg PO HS lisinopriL [Zestril] 5 mg PO DAILY B Complex W-C No.20/Folic Acid [Renal Caps Softgel] 1 mg PO DAILY INSULIN ASPART (NovoLOG) [NovoLOG (formulary)] 0 unit SQ ACHS Discharge Medication List Isosorbide Mononitrate [Imdur] 30 mg PO BID 01/09/14 [History] Sertraline [Zoloft] 100 mg PO DAILY 01/09/14 [History] Aspirin EC [Ecotrin Low Dose] 81 mg PO HS 11/08/15 [History] amLODIPine [Norvasc] 5 mg PO DAILY 11/08/15 [History] Clopidogrel [Plavix] 75 mg PO DAILY tab 11/11/15 [Rx] carvediloL [Coreg] 25 mg PO BID 03/30/16 [History] Ergocalciferol [Vitamin D2 (DRISDOL)] 50,000 unit PO SUWE 07/06/18 [History] Insulin Glargine [Lantus Vial] 35 unit SQ HS 07/06/18 [History] Atorvastatin [Lipitor] 40 mg PO DAILY 02/18/21 [History] B Complex W-C No.20/Folic Acid [Renal Caps Softgel] 1 mg PO DAILY 08/17/22 [History] Calcium Acetate [PhosLo] 1,334 mg PO TID-W/MEALS 08/17/22 [History] amLODIPine [Norvasc] 2.5 mg PO HS 08/17/22 [History] hydrALAZINE HCL 50 mg PO TID 08/17/22 [History] lisinopriL [Zestril] 5 mg PO DAILY 08/17/22 [History] INSULIN ASPART (NovoLOG) [NovoLOG (formulary)] 0 unit SQ ACHS 09/14/22 [History] Follow up Appointment(s)/Referral(s): Horacio Porter MD [STAFF PHYSICIAN] - 1 Week
[2022-10-14 08:18] VITALS: BP 161/69; TEMP 97.9
[2022-10-14] MEDS: hydrALAZINE HCL 50 MG TAB PO SCH (08:51)
[2022-10-14] MEDS ORDERED: FOLIC ACID-VIT B COMPLEX-VIT C 1 CAP PO SCH (09:00)
[2022-10-14] MEDS ORDERED: CLOPIDOGREL 75 MG TAB PO SCH (09:00)
[2022-10-14] MEDS ORDERED: SERTRALINE 100 MG TAB PO SCH (09:00)
[2022-10-14] MEDS ORDERED: lisinopriL 5 MG TAB PO SCH (09:00)
[2022-10-14] MEDS ORDERED: ATORVASTATIN 40 MG TAB PO SCH (09:00)
[2022-10-14] MEDS ORDERED: amLODIPine 5 MG TAB PO SCH (09:00)
[2022-10-14] MEDS: ISOSORBIDE MONONITRATE ER 30 MG TAB.ER.24H PO SCH (09:17)
[2022-10-14 10:28] VITALS: PULSE 63
[2022-10-17] MEDS ORDERED: ERGOCALCIFEROL 1,250 MCG (50,000 IU) CAPSULE PO SCH (09:00)
== END 2022-10-14 10:27 | disposition home or self-care (01) ==
LOC: CATHCVL 10:54 → 3SCARD 13:42 → CATHCVL 10-14 10:27
PROVIDERS: ATTEND Internal Medicine Interventional Cardiology
DX: I70.213 Atherosclerosis of native arteries of extremities with intermittent claudication, bilateral legs (principal); I10 Essential (primary) hypertension; E11.9 Type 2 diabetes mellitus without complications; E78.5 Hyperlipidemia, unspecified; F17.210 Nicotine dependence, cigarettes, uncomplicated; Z79.82 Long term (current) use of aspirin; Z79.899 Other long term (current) drug therapy; Z82.49 Family history of ischemic heart disease and other diseases of the circulatory system; Z83.3 Family history of diabetes mellitus
CPT/HCPCS: 94760; 80048; 85025; 37224; 37252; C1894 ×2; C1769 ×4; C1714; C1753; C2623; C1725; J2250; J2001; A4722; J1644; Q9966

== ENCOUNTER 2023-11-10 10:22 | Day surgery (SDC) | payer MEDICARE ==
[~2023-11-10 10:22] MED LIST changes: +ALPRAZolam 0.25 MG TAB PO PRN; +ALPRAZolam 0.5 MG TAB PO PRN; +ASPIRIN 325 MG TAB PO PRN; +HEPARIN SODIUM,PORCINE (1 ML) 2,500 UNIT in SODIUM CHLORIDE 0.9% 250 ML IRRIGATION PRN; +HEPARIN SODIUM,PORCINE 10,000 UNIT in SODIUM CHLORIDE 0.9% 1,000 ML IRRIGATION PRN; -SODIUM CHLORIDE 0.9% 1,000 ML in EMPTY BAG 1 BAG IV ONE; +ZOLPIDEM 5 MG TAB PO PRN
[2023-11-10] MEDS: IV FLUID CONTINUATION 1,000 ML IV ONE (10:37)
[2023-11-10 10:58] LABS: Glucose,Whole Blood 194 mg/dL (70-110)
[2023-11-10 11:07] VITALS: RESP 16; TEMP 98.2
[2023-11-10] MEDS: EMPTY BAG 1 BAG with SODIUM CHLORIDE 0.9% 1,000 ML IV SCH (11:08)
[2023-11-10] MEDS ORDERED: fentaNYL (PF) 50 MCG/ML 2 ML AMP ONE (11:15)
[2023-11-10] MEDS ORDERED: LIDOCAINE 1% INJ 10MG/ML (20 ML MDV) ONE (11:15)
[2023-11-10] MEDS ORDERED: HEPARIN SODIUM 1,000 UN/ML (10ML VL) ONE (11:15)
[2023-11-10] MEDS ORDERED: VERAPAMIL 2.5 MG/ML 2 ML AMP ONE (11:16)
[2023-11-10 11:28] LABS: African American GFR (CKD) 7 (>60 ml/min/1.73 sqM); Anion Gap 13 mmol/L; Blood Urea Nitrogen 77 mg/dL (9-20); Calcium 9.1 mg/dL (8.4-10.2); Carbon Dioxide 24 mmol/L (22-30); Chloride 101 mmol/L (98-107); Glucose 189 mg/dL (74-99); Non-African American GFR(CKD) 6 (>60 ml/min/1.73 sqM); Potassium 4.1 mmol/L (3.5-5.1); Sodium 138 mmol/L (137-145)
[2023-11-10] MEDS: LIDOCAINE 1% INJ 10MG/ML (20 ML MDV) SQ ONE (11:45)
[2023-11-10] MEDS: fentaNYL (PF) 50 MCG/1 ML VIAL IVP ONE (11:47)
[2023-11-10] MEDS: MIDAZOLAM 2 MG/2 ML VIAL IVP ONE (11:47)
[2023-11-10] MEDS ORDERED: NALOXONE 0.4 MG/ML 1 ML VIAL IVP PRN (11:56)
[2023-11-10] MEDS: HEPARIN SODIUM,PORCINE (1 ML) 2,500 UNIT in SODIUM CHLORIDE 0.9% 250 ML IRRIGATION ONE (11:59)
[2023-11-10] MEDS: HEPARIN SODIUM,PORCINE 10,000 UNIT in SODIUM CHLORIDE 0.9% 1,000 ML IRRIGATION ONE (11:59)
[2023-11-10] MEDS ORDERED: SODIUM CHLORIDE 0.9% 1,000 ML in EMPTY BAG 1 BAG IV SCH (12:00)
--- NOTE | 2023-11-10 12:03 | P.PCN ---
Date of Procedure: 11/10/23 Operative Findings: AN ABDOMINAL AORTOGRAM AND BILATERAL LOWER EXTREMITIES RUNOFF PERFORMING PHYSICIAN: Horacio Porter MD PROCEDURE PERFORMED: 1. An abdominal aortogram 2. Bilateral lower extremities runoff 3. Ultrasound-guided access of the right common femoral artery INDICATION: Symptomatic 78-year-old gentleman with abnormal lower extremities arterial duplex study COMPLICATION: None LEVEL OF SEDATION: Moderate was sedation length of 10 minutes APPROACH: Right common femoral artery PROCEDURE DESCRIPTION: After obtaining informed consent and explaining the procedure benefits, risks, and complications, the patient was brought to the cardiac cathead worker. The right groin was prepped and draped in sterile fashion. The right common femoral artery was cannulated using micropuncture technique, under ultrasound guidance. A micropuncture wire was advanced, and the micropuncture sheath was advanced over the wire, then the micropuncture sheath was exchanged over an 0.35 wire into a 5-Tanzanian sheath dilator assembly then the wire and dilator were removed and sheath was flushed. We did an abdominal aortogram and bilateral lower extremities runoff using 5- [place] pigtail catheter and using CO2 with no contrast. The catheter was initially placed at the level of the renal arteries, and it was pulled into above the bifurcation of the aorta into right and left common iliac arteries. The procedure was completed and there was no complications. SELECTIVE PERIPHERAL ANGIOGRAM: The abdominal aorta: Calcified with mild disease only The common iliac arteries: Calcified with mild disease only The external iliac arteries: Calcified with mild disease only as well The internal iliac arteries: Both internal iliac arteries are patent The common femoral arteries: Both common femoral arteries appear to have mild to moderate disease Superficial femoral arteries: The right SFA appeared to have severe disease in the midportion. The left SFA has critical lesion involving the ostial and midportion Popliteal arteries: Both popliteals appear to have mild to moderate disease bilaterally Below the knees: The arteries below the knee were poorly visualized CONCLUSION: Severe right SFA disease and critical left SFA disease POSTPROCEDURE MANAGEMENT: ENVIRONMENTAL GEOLOGIST to be performed the next few weeks
--- NOTE | 2023-11-10 12:10 | IR ---
EXAMINATION TYPE: IR angio abdominal w runoff DATE OF EXAM: 11/10/2023 COMPARISON: NONE HISTORY: Fluoroscopy time. Fluoroscopy was provided to the referring clinician.
[2023-11-10 12:20] LABS: Basophils % (A) 0 %; Eosinophils # (A) 0.5 k/uL (0-0.7); Eosinophils % (A) 7 %; HCT 39.3 % (39.0-53.0); HGB 12.2 gm/dL (13.0-17.5); Hypochromasia Moderate; Lymphocytes # (A) 1.1 k/uL (1.0-4.8); Lymphocytes % (A) 15 %; MCH 31.9 pg (25.0-35.0); MCHC 31.1 g/dL (31.0-37.0); MCV 102.5 fL (80.0-100.0); Macrocytosis Slight; Mean Platelet Volume 8.6; Monocytes # (A) 0.6 k/uL (0-1.0); Monocytes % (A) 8 %; Neutrophils # (A) 4.7 k/uL (1.3-7.7); Neutrophils % (A) 67 %; Platelet Count 203 k/uL (150-450); RBC 3.83 m/uL (4.30-5.90); RDW 14.2 % (11.5-15.5)
[2023-11-10 17:23] VITALS: BP 118/56; PULSE 64
== END 2023-11-10 17:01 | disposition home or self-care (01) ==
LOC: CATHCVL 10:22
PROVIDERS: ATTEND Internal Medicine Interventional Cardiology
DX: I70.213 Atherosclerosis of native arteries of extremities with intermittent claudication, bilateral legs (principal)
CPT/HCPCS: 36200; 75630; 80048; 85025; C1769 ×3; C1894; J2250; J1644 ×2; J2001; J3010

== ENCOUNTER 2023-12-14 10:20 | Day surgery (SDC) | payer MEDICARE ==
[2023-12-12 18:28] VITALS: BMI 31.5
[~2023-12-14 10:20] MED LIST changes: -ALPRAZolam 0.25 MG TAB PO PRN; -ALPRAZolam 0.5 MG TAB PO PRN; -HEPARIN SODIUM,PORCINE (1 ML) 2,500 UNIT in SODIUM CHLORIDE 0.9% 250 ML IRRIGATION PRN; -HEPARIN SODIUM,PORCINE 10,000 UNIT in SODIUM CHLORIDE 0.9% 1,000 ML IRRIGATION PRN; -ZOLPIDEM 5 MG TAB PO PRN
[2023-12-14] MEDS: SODIUM CHLORIDE 0.9% 1,000 ML in EMPTY BAG 1 BAG IV ONE (12:12)
[2023-12-14] MEDS: IV FLUID CONTINUATION 1,000 ML IV ONE (12:13)
[2023-12-14 12:17] LABS: Glucose,Whole Blood 181 mg/dL (70-110)
[2023-12-14 12:33] LABS: Basophils % (A) 0 %; Eosinophils # (A) 0.5 k/uL (0-0.7); Eosinophils % (A) 5 %; HCT 32.7 % (39.0-53.0); HGB 10.8 gm/dL (13.0-17.5); Hypochromasia Slight; Lymphocytes # (A) 1.4 k/uL (1.0-4.8); Lymphocytes % (A) 14 %; MCH 32.3 pg (25.0-35.0); MCHC 32.9 g/dL (31.0-37.0); MCV 98.2 fL (80.0-100.0); Mean Platelet Volume 8.1; Monocytes # (A) 0.6 k/uL (0-1.0); Monocytes % (A) 6 %; Neutrophils # (A) 7.2 k/uL (1.3-7.7); Neutrophils % (A) 72 %; Platelet Count 202 k/uL (150-450); RBC 3.33 m/uL (4.30-5.90); RDW 14.1 % (11.5-15.5)
[2023-12-14] MEDS: MIDAZOLAM 2 MG/2 ML VIAL IVP ONE (12:42)
[2023-12-14] MEDS: fentaNYL (PF) 50 MCG/ML 2 ML AMP IVP ONE ×2 (12:42→13:20)
[2023-12-14] MEDS: LIDOCAINE 1% INJ 10MG/ML (20 ML MDV) SQ ONE (12:44)
[2023-12-14 12:46] LABS: African American GFR (CKD) 6 (>60 ml/min/1.73 sqM); Anion Gap 17 mmol/L; Blood Urea Nitrogen 89 mg/dL (9-20); Calcium 9.4 mg/dL (8.4-10.2); Carbon Dioxide 24 mmol/L (22-30); Chloride 96 mmol/L (98-107); Glucose 175 mg/dL (74-99); Non-African American GFR(CKD) 5 (>60 ml/min/1.73 sqM); Potassium 4.3 mmol/L (3.5-5.1); Sodium 137 mmol/L (137-145)
[2023-12-14] MEDS: HEPARIN SODIUM 1,000 UN/ML (10ML VL) IVP ONE ×2 (12:50→13:34)
[2023-12-14] MEDS ORDERED: metOLazone 5 MG TAB PO PRN (14:19)
[2023-12-14] MEDS: IOPAMIDOL-370 100ML BTL INJ ONE (14:20)
[2023-12-14] MEDS: HEPARIN SODIUM,PORCINE 10,000 UNIT in SODIUM CHLORIDE 0.9% 1,000 ML IRRIGATION ONE (14:25)
--- NOTE | 2023-12-14 14:58 | IR ---
EXAMINATION TYPE: IR angio lower extremity LT Intraoperative/procedural fluoroscopic services were pr ovided. CLINICAL INDICATION:Male, 78 years old with history of LLE ANGIOGRAM, 31MIN FLT, 0.499GY; , [facility] Total fluoroscopy time is 31.1 min. DAP: [id number] Please see the operative/procedural note for further details.
[2023-12-14] MEDS: SODIUM CHLORIDE 0.9% 1,000 ML IV SCH (17:25)
[2023-12-14] MEDS: CALCIUM ACETATE 667 MG TAB PO SCH (17:29)
[2023-12-14] MEDS: carvediloL 12.5 MG TAB PO SCH (17:29)
[2023-12-14] MEDS: FUROSEMIDE 20 MG TAB PO SCH (17:29)
[2023-12-14 17:32] LABS: Glucose,Whole Blood 177 mg/dL (70-110)
[2023-12-14] MEDS: DIALYSIS (PERIT 2.5%) 2,000 ML 50 G/2,000 ML BAG INTRAPERIT SCH ×2 (18:40→20:28)
[2023-12-14 20:49] LABS: Glucose,Whole Blood 235 mg/dL (70-110)
[2023-12-14] MEDS ORDERED: ISOSORBIDE MONONITRATE ER 15 MG TAB PO SCH (21:00)
[2023-12-14] MEDS: amLODIPine 5 MG TAB PO SCH (21:32)
--- NOTE | 2023-12-14 21:32 | P.PCN ---
Date of Procedure: 12/14/23 Operative Findings: Percutaneous peripheral arterial intervention Performing physician Horacio Porter MD Procedure performed 1. Successful recanalizing and occluded left SFA and left popliteal 2. Adjunctive use of lithotripsy balloon and IVUS and atherectomy . 3. Left lower extremity angiogram and right common femoral artery angiogram and ultrasound access of the right CAF Indication Symptomatic 78-year-old gentleman was known in lower extremities. He had prior angioplasty of the left SFA several years ago who was experiencing symptoms of intermittent claudication consistent with Amber class IIa. An angiogram was performed and showed occluded left SFA and left popliteal. In the light of that he was brought today to undergo an intervention. Cutaneously Approach Right common femoral artery Complication None Level of sedation Moderate sedation length of about 60 minutes Procedure description After obtaining an informed consent the patient was brought to the cardiac Custodial Worker. The right common femoral artery was cannulated using micropuncture technique under ultrasound guidance and the micropuncture wire passed easily did not place a 6 Bengali 70 cm sheath at the right common femoral artery with the sheath was advanced to the proximal right iliac under fluoroscopy guidance. At that point anticoagulation was initiated using heparin with continuous ACT monitoring. After that I did select the left SFA using a 3 5 stiff Glidewire with the backup support of 5 Bengali catheter. Subsequently the catheter was advanced over the 035 stiff Glidewire and then the sheath was advanced over the wire and the catheter to the proximal left common femoral artery. An angiogram was performed of the left SFA and left popliteal and below the knee showed extremely calcified peripheral arterial system with good SFA and occluded left popliteal. Attempting crossing the occlusion using [address] wire was unsuccessful and attempting crossing it using an 014 whisper wire also was unsuccessful but was successful using on Hernandez to the Glidewire with the wire was advanced all the way to below the knee on the left side. At th I did exchange my almonte tip to a ViberWire which was 014 wire using an 018 catheter. Then after that I did IVUS of the left SFA and left popliteal which showed extremely calcified SFA and popliteal. I decided to do an atherectomy using orbital atherectomy device and using 1.5 solid tim. That was performed for the whole segment of the left SFA and left popliteal. Subsequently I did balloon angioplasty using 5 mm lithotripsy balloon and also that was performed for the whole length of the left popliteal and left SFA. Because the balloon was undersized in the left SFA I decided to use 6 mm Crystal balloon which was noncompliant balloon. I did that for the left SFA only. After that an angiogram was performed and showed an area of dissection involving the mid to distal left SFA between 2 prior stents. I decided to cover that with a stent so I deployed a 7.0 x 100 mm Zilver PTX drug-coated stent where the stent was positioned under fluoroscopic guidance and deployed under fluoroscopy guidance and after that postdilated using 6 mm noncompliant balloon. Then for the left popliteal I did a drug-coated balloon and that was 5 mm millimeter balloon. Final angiogram was performed and showed adequate angiographic results with excellent flow below the knee in the left SFA and left popliteal as well. I decided to stop with the residual stenosis involving the left popliteal nonflow limiting and appeared to be in the range of 50%. Subsequently I did exchange my 70 cm long sheath into 11 cm sheath using cautery 5 wire before I did selective right common femoral artery angiogram. The procedure was completed with no complication Conclusion Successful recanalizing left SFA and left popliteal crossing with good angiographic results and residual stenosis about 50% involving the left popliteal appeared to be nonflow limiting Postprocedure management Continue dual antiplatelet therapy Consider switching the patient from Plavix to small dose of either Eliquis or Xarelto in addition to aspirin Obtain surveillance duplex study in the next few months Follow-up with the patient
[2023-12-14] MEDS: GABAPENTIN 100 MG CAP PO SCH (21:33)
[2023-12-14] MEDS: ISOSORBIDE MONONITRATE ER 30 MG TAB.ER.24H PO SCH (21:33)
[2023-12-14] MEDS: INSULIN DETEMIR (LEVEMIR) 100 UNIT/ML SYR SQ SCH (21:33)
[2023-12-14] MEDS: hydrALAZINE HCL 50 MG TAB PO SCH (21:33)
[2023-12-14] MEDS: HYDROcodone/APAP 5-325MG 1 EACH TAB PO SCH (21:33)
[2023-12-15 06:07] LABS: Glucose,Whole Blood 205 mg/dL (70-110)
[2023-12-15 08:21] VITALS: BP 153/70; TEMP 98.4
[2023-12-15] MEDS: ATORVASTATIN 40 MG TAB PO SCH (09:04)
[2023-12-15] MEDS: SERTRALINE 100 MG TAB PO SCH (09:04)
[2023-12-15] MEDS: CLOPIDOGREL 75 MG TAB PO SCH (09:04)
[2023-12-15] MEDS: lisinopriL 5 MG TAB PO SCH (09:05)
[2023-12-15] MEDS: ASPIRIN 81 MG PO SCH (09:05)
[2023-12-15 09:14] VITALS: PULSE 72; RESP 18
--- NOTE | 2023-12-15 10:16 | P.NPCON ---
History of Present Illness - Reason for Consult end stage renal disease - History of Present Illness Reason for consultation: End-stage renal disease History of present illness: Patient is a 78-year-old male seen in renal consultation for end-stage renal disease. He is maintained on peritoneal dialysis. No problems with PD exchanges last night. Patient underwent left lower extremity angiogram with in tervention to the left SFA and left popliteal artery. Patient states he has had prior interventions in the past as well. He also sees of coronary disease with stenting. Patient has longstanding history of diabetes. He does make urine and is maintained on diuretics. Denies chest pain or shortness of breath. No vomiting or diarrhea. No fever or chills. Vital signs are stable. General: No acute distress. HEENT: Head exam is unremarkable. LUNGS: No audible rhonchi or wheezes. HEART: Rate and Rhythm are regular. Cut the ABDOMEN: Nontender. EXTREMITITES: No edema. Past Medical History Past Medical History: Coronary Artery Disease (CAD), Heart Failure, CVA/TIA, Diabetes Mellitus, GERD/Reflux, Hyperlipidemia, Hypertension, Osteoarthritis (OA), Pneumonia, Renal Disease, Vascular Disorder Additional Past Medical History / Comment(s): Hx Labyrinthitis, 10/2015 - TIA no residual effects. Neuropathy and poor circulation bilateral legs and feet. peritoneal dialysis every night(4 cycles every night totalling between 9-10 hour s alternating 1.2%-2.3% concentration) History of Any Multi-Drug Resistant Organisms: None Reported Past Surgical History: Appendectomy, Heart Catheterization With Stent Additional Past Surgical History / Comment(s): LASER DIABETIC RETINOPATHY EYE SURGERY, one cardiac stent, aortogram, RIGHT FEMORAL POPLITEAL PROCEDURE. recent aortogram, balloon angioplasty left SFA 09-15-22, peritoneal dialysis cath. insertion,aotogram w/ runoff Past Anesthesia/Blood Transfusion Reactions: No Reported Reaction Additional Past Anesthesia/Blood Transfusion Reaction / Comment(s): . Date of Last Stent Placement:: 2001 Past Psychological History: Depression Smoking Status: Former smoker Past Alcohol Use History: None Reported Additional Past Alcohol Use History / Comment(s): Quit smoking in 1984. Past Drug Use History: None Reported - Past Family History Mother Family Medical History: Diabetes Mellitus Additional Family Medical History / Comment(s): "Heart trouble." Brother(s) Family Medical History: Cancer, Diabetes Mellitus Additional Family Medical History / Comment(s): Lung cancer. Medications and Allergies Home Medications Medication Instructions Recorded Confirmed Type Isosorbide Mononitrate [Imdur] 30 mg PO BID 01/09/14 12/14/23 History Sertraline [Zoloft] 100 mg PO DAILY 01/09/14 12/14/23 History Aspirin EC [Ecotrin Low Dose] 81 mg PO DAILY 11/08/15 12/14/23 History amLODIPine [Norvasc] 5 mg PO BID 11/08/15 12/14/23 History carvediloL [Coreg] 25 mg PO BID 03/30/16 12/14/23 History Ergocalciferol [Vitamin D2 50,000 unit PO SUWE 07/06/18 12/14/23 History (DRISDOL)] Insulin Glargine [Lantus Vial] 55 unit SQ HS 07/06/18 12/14/23 History Atorvastatin [Lipitor] 40 mg PO DAILY 02/18/21 12/14/23 History Calcium Acetate [PhosLo] 2,668 mg PO TID-W/MEALS 08/17/22 12/14/23 History hydrALAZINE HCL 50 mg PO BID 08/17/22 12/14/23 History lisinopriL [Zestril] 5 mg PO DAILY 08/17/22 12/14/23 History INSULIN ASPART (NovoLOG) [NovoLOG 0 unit SQ ACHS 09/14/22 12/14/23 History (formulary)] Furosemide [Lasix] 60 mg PO BID 11/09/23 12/14/23 History Gabapentin [Neurontin] 100 mg PO HS 11/09/23 12/14/23 History HYDROcodone/APAP 5-325MG [Dorset 1 tab PO BID 11/09/23 12/14/23 History 5-325] Methoxy Peg-Epoetin Beta [Mircera] 0.3 mcg INJ DIRECTED 11/09/23 12/14/23 History metOLazone [Zaroxolyn] 5 mg PO DIRECTED PRN 11/09/23 12/14/23 History Apixaban [Eliquis] 2.5 mg PO BID #180 tab 12/15/23 Rx Allergies Allergy/AdvReac Type Severity Reaction Status Date / Time simvastatin AdvReac Diarrhea Verified 12/14/23 12:02 Physical Exam Vitals: Vital Signs Temp Pulse Pulse Pulse Pulse Resp BP 12/15/23 09:12 98.4 F 72 18 153/70 12/15/23 08:17 98.4 F 73 20 12/15/23 04:59 12/15/23 03:08 79 16 12/14/23 21:32 59 L 16 12/14/23 20:29 97.6 F 69 16 151/59 12/14/23 18:25 62 12/14/23 17:43 65 12/14/23 17:25 65 12/14/23 17:02 97.7 F 64 20 12/14/23 16:25 64 16 12/14/23 16:15 65 16 12/14/23 16:08 62 16 12/14/23 15:55 67 16 12/14/23 15:25 61 16 12/14/23 15:10 62 16 12/14/23 14:55 64 16 12/14/23 14:44 66 16 12/14/23 12:11 97.4 F L 71 18 BP BP BP BP Pulse Ox 12/15/23 09:12 96 12/15/23 08:17 153/70 97 12/15/23 04:59 110/59 12/15/23 03:08 183/66 96 12/14/23 21:32 146/68 96 12/14/23 20:29 96 12/14/23 18:25 145/69 12/14/23 17:43 12/14/23 17:25 149/52 12/14/23 17:02 152/61 96 12/14/23 16:25 139/67 98 12/14/23 16:15 137/62 96 12/14/23 16:08 139/63 98 12/14/23 15:55 135/63 98 12/14/23 15:25 150/69 98 12/14/23 15:10 142/68 98 12/14/23 14:55 136/65 98 12/14/23 14:44 138/71 98 12/14/23 12:11 167/71 94 L Intake and Output 12/14/23 12/15/23 12/15/23 22:59 06:59 14:59 Intake Total 240 Output Total 200 Balance 240 -200 Intake: Oral 240 Output: Urine 200 Other: Voiding Method External Catheter # Voids 2 # Bowel Movements 1 Weight 98.5 kg 101.1 kg Results - Lab Results Most recent lab results Calcium 9.4 mg/dL (8.4-10.2) 12/14/23 12:00 12/14/23 12:00 12/14/23 12:00 Assessment and Plan Plan: Assessment: 1. End-stage renal disease maintained on peritoneal dialysis. 2. Peripheral arterial disease status post left lower extremity angiogram with left SFA and popliteal artery intervention December 14, 2023. 3. Diabetes mellitus. 4. Hypertension with chronic kidney disease. 5. Chronic kidney disease mineral bone disease maintained on PhosLo. Plan: Maintain current PD exchanges with 2 L every 6 hours with 2.5% solution. Resume CCPD upon discharge. Thank you for the consultation. I will continue to follow the patient with you during his hospital stay.
[2023-12-18] MEDS ORDERED: ERGOCALCIFEROL 1,250 MCG (50,000 IU) CAPSULE PO SCH (09:00)
== END 2023-12-15 11:02 | disposition home or self-care (01) ==
LOC: CATHCVL 10:20 → 3SCARD 14:20 → CATHCVL 12-15 11:02
PROVIDERS: ATTEND Internal Medicine Interventional Cardiology
DX: I70.213 Atherosclerosis of native arteries of extremities with intermittent claudication, bilateral legs
CPT/HCPCS: 37252; 80048; 85025

== ENCOUNTER 2023-12-18 15:10 | Emergency (ER) | payer MEDICARE ==
[2023-12-18 15:24] VITALS: TEMP 98.2
--- NOTE | 2023-12-18 15:42 | ED ---
General Adult HPI - General Chief complaint: Skin/Abscess/Foreign Body Stated complaint: post op comp-poss infection Time Seen by Provider: 12/18/23 15:25 Source: patient, RN notes reviewed, old records reviewed Mode of arrival: ambulatory Limitations: no limitations - History of Present Illness Initial comments: This is a 78-year-old male who presents to the emergency department because he woke up today and is foot was red and he thought the distal aspect of his leg was red. Patient states he had a stent placed in his lower upper leg on Tuesday and the symptoms started yesterday but were worse this morning. Patient denies any foot pain and there has been no pallor. Patient states she has had some mild calf pain and leg swelling over the same period of time. Patient has a small scab on the fourth toe but states that was there prior to . Patient denies any fever or chills. Patient states the redness was worse this morning than it is now. Patient states she is on Eliquis. - Related Data Home Medications Medication Instructions Recorded Confirmed Isosorbide Mononitrate [Imdur] 30 mg PO BID 01/09/14 12/14/23 Sertraline [Zoloft] 100 mg PO DAILY 01/09/14 12/14/23 Aspirin EC [Ecotrin Low Dose] 81 mg PO DAILY 11/08/15 12/14/23 amLODIPine [Norvasc] 5 mg PO BID 11/08/15 12/14/23 carvediloL [Coreg] 25 mg PO BID 03/30/16 12/14/23 Ergocalciferol [Vitamin D2 50,000 unit PO SUWE 07/06/18 12/14/23 (DRISDOL)] Insulin Glargine [Lantus Vial] 55 unit SQ HS 07/06/18 12/14/23 Atorvastatin [Lipitor] 40 mg PO DAILY 02/18/21 12/14/23 Calcium Acetate [PhosLo] 2,668 mg PO TID-W/MEALS 08/17/22 12/14/23 hydrALAZINE HCL 50 mg PO BID 08/17/22 12/14/23 lisinopriL [Zestril] 5 mg PO DAILY 08/17/22 12/14/23 INSULIN ASPART (NovoLOG) [NovoLOG 0 unit SQ [facility] 09/14/22 12/14/23 (formulary)] Furosemide [Lasix] 60 mg PO BID 11/09/23 12/14/23 Gabapentin [Neurontin] 100 mg PO HS 11/09/23 12/14/23 HYDROcodone/APAP 5-325MG [Ebony 1 tab PO BID 11/09/23 12/14/23 5-325] Methoxy Peg-Epoetin Beta [Mircera] 0.3 mcg INJ DIRECTED 11/09/23 12/14/23 metOLazone [Zaroxolyn] 5 mg PO DIRECTED PRN 11/09/23 12/14/23 Previous Rx's Medication Instructions Recorded Apixaban [Eliquis] 2.5 mg PO BID #180 tab 12/15/23 Allergies Allergy/AdvReac Type Severity Reaction Status Date / Time simvastatin AdvReac Diarrhea Verified 12/18/23 15:24 Review of Systems ROS Statement: Those systems with pertinent positive or pertinent negative responses have been documented in the HPI. ROS Other: All systems not noted in ROS Statement are negative. Past Medical History Past Medical History: Coronary Artery Disease (CAD), Heart Failure, CVA/TIA, Diabetes Mellitus, GERD/Reflux, Hyperlipidemia, Hypertension, Osteoarthritis (OA), Pneumonia, Renal Disease, Vascular Disorder Additional Past Medical History / Comment(s): Hx Labyrinthitis, 10/2015 - TIA no residual effects. Neuropathy and poor circulation bilateral legs and feet. peritoneal dialysis every night(4 cycles every night totalling between 9-10 hours alternating 1.2%-2.3% concentration), Stent placed in left leg 12-14-23 History of Any Multi-Drug Resistant Organisms: None Reported Past Surgical History: Appendectomy, Heart Catheterization With Stent Additional Past Surgical History / Comment(s): LASER DIABETIC RETINOPATHY EYE SURGERY, one cardiac stent, aortogram, RIGHT FEMORAL POPLITEAL PROCEDURE. recent aortogram, balloon angioplasty left SFA 09-15-22, peritoneal dialysis cath. insertion,aotogram w/ runoff Past Anesthesia/Blood Transfusion Reactions: No Reported Reaction Additional Past Anesthesia/Blood Transfusion Reaction / Comment(s): . Date of Last Stent Placement:: 2001 Past Psychological History: Depression Smoking Status: Former smoker Past Alcohol Use History: None Reported Past Drug Use History: None Reported - Past Family History Mother Family Medical History: Diabetes Mellitus Additional Family Medical History / Comment(s): "Heart trouble." Brother(s) Family Medical History: Cancer, Diabetes Mellitus Additional Family Medical History / Comment(s): Lung cancer. General Exam - General Exam Comments Initial Comments: GENERAL: Patient is well-developed and well-nourished. Patient is nontoxic and well- hydrated and is in no acute distress. ENT: Neck is soft and supple. No significant lymphadenopathy is noted. Oropharynx is clear. Moist mucous membranes. Neck has full range of motion without eliciting any pain. EYES: The sclera were anicteric and conjunctiva were pink and moist. Extraocular movements were intact and pupils were equal round and reactive to light. Eyelids were unremarkable. PULMONARY: Unlabored respirations. Good breath sounds bilaterally. No audible rales rhonchi or wheezing was noted. CARDIOVASCULAR: There is a regular rate and rhythm without any murmurs gallops or rubs. ABDOMEN: Soft and nontender with normal bowel sounds. SKIN: Skin is clear with no lesions or rashes and otherwise unremarkable. NEUROLOGIC: Patient is alert and oriented x3. Cranial nerves II through XII are grossly intact. Motor and sensory are also intact. Normal speech, volume and content. Symmetrical smile. MUSCULOSKELETAL: Normal extremities with adequate strength and full range of motion. Patient's foot is mildly erythematous equally across the foot and toes it is does not blanching with pressure some petechiae is present. Cap refill is normal. Patient does have some mild left calf pain LYMPHATICS: No significant lymphadenopathy is noted PSYCHIATRIC: Normal psychiatric evaluation. Limitations: no limitations Course Vital Signs 12/18/23 12/18/23 15:21 17:10 Temperature 98.2 F Pulse Rate 67 70 Respiratory 17 18 Rate Blood Pressure 146/70 150/68 O2 Sat by Pulse 96 95 Oximetry Medical Decision Making - Medical Decision Making Was pt. sent in by a medical professional or institution (, PA, CLERICAL DENTIST ASSISTANT, urgent care, hospital, or correction...) When possible be specific @ -No Did you speak to anyone other than the patient for history (EMS, parent, family, police, friend...)? What history was obtained from this source @ -No Did you review nursing and triage notes (agree or disagree)? Why? @ -I reviewed and agree with nursing and triage notes Were old charts reviewed (outside hosp., previous admission, EMS record, old EKG, old radiological studies, urgent care reports/EKG's, correction records)? Report findings @ -No old charts were reviewed Differential Diagnosis? @ -Cellulitis, DVT, arterial occlusion, petechiae, edema, this is not an all- inclusive list EKG interpreted by me (3pts min.). @ -As above X-rays interpreted by me (1pt min.). @ -None done CT interpreted by me (1pt min.). @ -None done U/S interpreted by me (1pt. min.). @ -Ultrasound showed no DVT What testing was considered but not performed or refused? (CT, X-rays, U/S, labs)? Why? @ -None What meds were considered but not given or refused? Why? @ -None Did you discuss the management of the patient with other professionals (professionals i.e. , PA, CLERICAL DENTIST ASSISTANT, lab, RT, psych nurse, social work supervisor, tube station attendant, teacher, executive officer, case specialist)? Give summary @ -No Was smoking cessation discussed for >3mins.? @ -No Was critical care preformed (if so, how long)? @ -No Were there social determinants of health that impacted care today? How? (Homelessness, low income, unemployed, alcoholism, drug addiction, transportation, low edu. Level, literacy, decrease access to med. care, [place] [facility], rehab)? @ -No Was there de-escalation of care discussed even if they declined (Discuss DNR or withdrawal of care, Hospice)? DNR status @ -No What co-morbidities impacted this encounter? (DM, HTN, Smoking, COPD, CAD, Cancer, CVA, ARF, Chemo, Hep., AIDS, mental health diagnosis, sleep apnea, morbid obesity)? @ -None Was patient admitted / discharged? Hospital course, mention meds given and route, prescriptions, significant lab abnormalities, going to OR and other pertinent info. @ -Patient's lab work was within normal range. Patient was already on a blood thinner. Patient showed no evidence of a DVT and clinically he did not have a arterial occlusion he was in no pain or discomfort. Patient will be discharged home to follow-up with Dr. Porter Undiagnosed new problem with uncertain prognosis? @ -No Drug Therapy requiring intensive monitoring for toxicity (Heparin, Nitro, In sulin, Cardizem)? @ -No Were any procedures done? @ -No Diagnosis/symptom? @ -Petechiae on leg Acute, or Chronic, or Acute on Chronic? @ -Default Uncomplicated (without systemic symptoms) or Complicated (systemic symptoms)? @ -Acute uncomplicate Side effects of treatment? @ -No Exacerbation, Progression, or Severe Exacerbation? @ -No Poses a threat to life or bodily function? How? (Chest pain, [place], [place], pneumonia, PE, COPD, DKA, ARF, appy, cholecystitis, CVA, Diverticulitis, Homicidal, Suicidal, threat to staff... and all critical care pts) @ -No - Lab Data Result diagrams: 12/18/23 15:58 12/18/23 15:58 Lab Results 12/18/23 12/18/23 Range/Units 15:58 15:58 WBC 8.6 (3.8-10.6) k/uL RBC 2.85 L (4.30-5.90) m/uL Hgb 9.2 L D (13.0-17.5) gm/dL Hct 27.5 L (39.0-53.0) % MCV 96.5 (80.0-100.0) fL MCH 32.2 (25.0-35.0) pg MCHC 33.4 (31.0-37.0) g/dL RDW 14.1 (11.5-15.5) % Plt Count 197 (150-450) k/uL MPV 8.4 Neutrophils % 68 % Lymphocytes % 15 % Monocytes % 7 % Eosinophils % 6 % Basophils % 1 % Neutrophils # 5.9 (1.3-7.7) k/uL Lymphocytes # 1.3 (1.0-4.8) k/uL Monocytes # 0.6 (0-1.0) k/uL Eosinophils # 0.6 (0-0.7) k/uL Basophils # 0.0 (0-0.2) k/uL Sodium 137 (137-145) mmol/L Potassium 4.3 (3.5-5.1) mmol/L Chloride 98 (98-107) mmol/L Carbon Dioxide 28 (22-30) mmol/L Anion Gap 11 mmol/L BUN 93 H (9-20) mg/dL Creatinine 8.76 H* (0.66-1.25) mg/dL Est GFR (CKD-EPI)AfAm 6 (>60 ml/min/1.73 sqM) Est GFR (CKD-EPI)NonAf 5 (>60 ml/min/1.73 sqM) Glucose 192 H (74-99) mg/dL Calcium 8.6 (8.4-10.2) mg/dL Total Bilirubin 0.6 (0.2-1.3) mg/dL AST 20 (17-59) U/L ALT 15 (4-49) U/L Alkaline Phosphatase 49 (38-126) U/L Total Protein 6.1 L (6.3-8.2) g/dL Albumin 3.6 (3.5-5.0) g/dL Disposition Clinical Impression: Petechiae Disposition: HOME SELF-CARE Condition: Good Additional Instructions: Patient should follow-up with Dr. Porter patient should return if there are any new or worsening symptoms Is patient prescribed a controlled substance at d/c from ED?: No Referrals: Veronica Guardado MD [Primary Care Provider] - 1-2 days Time of Disposition: 18:02
[2023-12-18 16:13] LABS: Basophils % (A) 1 %; Eosinophils # (A) 0.6 k/uL (0-0.7); Eosinophils % (A) 6 %; HCT 27.5 % (39.0-53.0); Lymphocytes # (A) 1.3 k/uL (1.0-4.8); Lymphocytes % (A) 15 %; MCH 32.2 pg (25.0-35.0); MCHC 33.4 g/dL (31.0-37.0); MCV 96.5 fL (80.0-100.0); Mean Platelet Volume 8.4; Monocytes # (A) 0.6 k/uL (0-1.0); Monocytes % (A) 7 %; Neutrophils # (A) 5.9 k/uL (1.3-7.7); Neutrophils % (A) 68 %; Platelet Count 197 k/uL (150-450); RBC 2.85 m/uL (4.30-5.90); RDW 14.1 % (11.5-15.5); WBC 8.6 k/uL (3.8-10.6)
[2023-12-18 16:16] LABS: HGB 9.2 gm/dL (13.0-17.5)
[2023-12-18 16:36] LABS: ALT 15 U/L (4-49); AST 20 U/L (17-59); African American GFR (CKD) 6 (>60 ml/min/1.73 sqM); Albumin 3.6 g/dL (3.5-5.0); Alkaline Phosphatase 49 U/L (38-126); Anion Gap 11 mmol/L; Blood Urea Nitrogen 93 mg/dL (9-20); Calcium 8.6 mg/dL (8.4-10.2); Carbon Dioxide 28 mmol/L (22-30); Chloride 98 mmol/L (98-107); Glucose 192 mg/dL (74-99); Non-African American GFR(CKD) 5 (>60 ml/min/1.73 sqM); Potassium 4.3 mmol/L (3.5-5.1); Sodium 137 mmol/L (137-145); Total Bilirubin 0.6 mg/dL (0.2-1.3); Total Protein 6.1 g/dL (6.3-8.2)
--- NOTE | 2023-12-18 17:02 | US ---
EXAMINATION TYPE: US venous doppler duplex LE LT DATE OF EXAM: 12/18/2023 4:32 PM COMPARISON: NONE CLINICAL INDICATION: Male, 78 years old with history of Calf tenderness plus some swelling; Left leg edema. SIDE PERFORMED: Left TECHNIQUE: The lower extremity deep venous system is examined utilizing real time linear array sonog leland with graded compression, doppler sonography and color-flow sonography. VESSELS IMAGED: Common Femoral Vein Deep Femoral Vein Greater Saphenous Vein * Femoral Vein Popliteal Vein Small Saphenous Vein * Proximal Calf Veins (* superficial vessels) Left Leg: Negative for DVT IMPRESSION: Grayscale, color doppler, spectral doppler imaging performed of the deep veins of the lo wer extremities. There is normal flow, compressibility, vascular waveforms.
[2023-12-18 17:11] VITALS: RESP 18
[2023-12-18 18:25] VITALS: BP 155/67; PULSE 64
== END 2023-12-18 18:25 | disposition home or self-care (01) ==
LOC: EC 15:10
DX: R23.3 Spontaneous ecchymoses (principal)
CPT/HCPCS: 36415; 80053; 85025; 99283